=== PATIENT | female | born 1995 | race Caucasian/White ===

== ENCOUNTER 2024-07-12 09:43 | Emergency (ER) | payer OTHER, SELFPAY ==
[2024-07-12 09:49] VITALS: BP 126/78; PULSE 89; RESP 22; TEMP 36.6; O2SAT 99; BMI 25.7
--- NOTE | 2024-07-12 10:08 | ED.GENADULT ---
HPI - General Adult General Date Seen: 07/12/24 Chief complaint: Abdominal Pain Stated complaint: 13wks PG stabbing perineal pain back pain pressure Time Seen by Provider: 07/12/24 10:08 History of Present Illness HPI narrative: This is a very pleasant generally healthy 28-year-old female who is , currently 13 weeks (LMP 04/11/2024). She follows for her care with a clinic in the [facility] in [place] and has already had 1 ultrasound that confirmed a single craven live IUP. She presents to the ER today with intense pelvic cramping and left lower quadrant pain that radiates a little bit to her left flank. It is much worse than any pain she has had before and she says it is worse than labor pains. It came on abruptly. No antecedent symptoms. She is not having any fever or chills. She is nauseous and vomiting due to the pain. Urination has been normal. No dysuria, urgency, frequency, hematuria. She is not having any vaginal bleeding or discharge. No right-sided pain. No rash. No known injury. She did have 1 episode of loose stool this morning after the pain started. She does have a family history of kidney stones. Related Data Previous Rx's ?Medication ?Instructions ?Recorded hydrocodone 5 mg-acetaminophen 325 1 tab PO Q4H PRN pain #14 tabs 07/12/24 mg tablet ondansetron HCl 4 mg tablet 4 mg PO Q8H PRN nausea and 07/12/24 vomiting #10 tabs tamsulosin 0.4 mg capsule (Flomax) 0.4 mg PO DAILY #7 caps 07/12/24 Allergies Allergy/AdvReac Type Severity Reaction Status Date / Time Penicillins Allergy Intermediate Rash Verified 07/12/24 09:49 PFSH PFS Social History Non-prescribed substance use: denies use Exam Narrative: Exam Narrative: Constitutional: Appears well-developed and well-nourished. Alert. G very uncomfortable but polite. Had vomited so help her get a clean emesis bag. HENT: Head: Atraumatic. Nose: Nose normal. Mouth/Throat: Oral mucosa is clear and moist. no trismus. Pharynx normal. Tonsils symmetric. Eyes: Conjunctivae normal. EOM normal. Pupils equal, round, and reactive to light. No scleral icterus. Neck: Normal range of motion. Neck supple. No tracheal deviation present. Cardiovascular: Normal rate, regular rhythm. No gallop. No friction rub. No murmur heard. Symmetric radial artery pulses Pulmonary/Chest: Effort normal. No stridor. No respiratory distress. No wheezes. No rales. No rhonchi . No tenderness. Abdominal: Soft. Bowel sounds normal. No distension. No mass. Left lower quadrant and left CVA> suprapubic tenderness. No rebound. No guarding. Musculoskeletal: RUE: Normal range of motion. No tenderness. No deformity LUE: Normal range of motion. No tenderness. No deformity RLE: Normal range of motion. No edema. No tenderness. No deformity LLE: Normal range of motion. No edema. No tenderness. No deformity Neurological: Alert and oriented to person, place, and time. Normal strength. CN II-VII intact. No sensory deficit. GCS eye subscore is 4. GCS verbal subscore is 5. GCS motor subscore is 6. Normal coordination Skin: Skin is warm and dry. No rash noted. No pallor. Normal capillary refill. Psychiatric: Normal mood. Normal affect. Const: Vital Signs, click to edit/add: Vital Signs - 24 hr 07/12/24 09:49 07/12/24 10:42 07/12/24 10:45 Temperature 97.8 F Pulse Rate 71 82 Pulse Rate [Pulse Oximeter] 89 Respiratory Rate 22 Blood Pressure 121/76 Blood Pressure [Ri ght Upper Arm] 126/78 Pulse Oximetry 99 100 96 Oxygen Delivery Me thod Room Air 07/12/24 10:58 Temperature Pulse Rate Pulse Rate [Pulse Oximeter] Respiratory Rate Blood Pressure Blood Pressure [Ri ght Upper Arm] Pulse Oximetry 96 Oxygen Delivery Me thod Course Vital Signs Vital signs: Initial Vital Signs Temperature 97.8 F 07/12/24 09:49 Temperature Source Temporal Artery Scan 07/12/24 09:49 Pulse Rate 89 07/12/24 09:49 Respiratory Rate 22 07/12/24 09:49 Blood Pressure 126/78 07/12/24 09:49 Blood Pressure Mean 94 07/12/24 09:49 Pulse Oximetry 99 07/12/24 09:49 Oxygen Delivery Method Room Air 07/12/24 09:49 Vital Signs Temperature 97.8 F 07/12/24 09:49 Pulse Rate 89 07/12/24 09:49 Respiratory Rate 22 07/12/24 09:49 Blood Pressure 126/78 07/12/24 09:49 Pulse Oximetry 99 07/12/24 09:49 Oxygen Delivery Method Room Air 07/12/24 09:49 Temperature 97.8 F 07/12/24 09:49 Pulse Rate 82 07/12/24 10:45 Respiratory Rate 22 07/12/24 09:49 Blood Pressure 121/76 07/12/24 10:45 Pulse Oximetry 96 07/12/24 10:58 Oxygen Delivery Method Room Air 07/12/24 09:49 Medications Administered Medications: Discontinued Medications Generic Name Dose Route Start Last Admin Trade Name Freq PRN Reason Stop Dose Admin Acetaminophen 1,000 mg 07/12/24 10:17 07/12/24 10:35 Acetaminophen 500 Mg Tablet PO 07/12/24 10:18 1,000 mg ONCE ONE Administration Hydromorphone HCl 0.5 mg 07/12/24 10:17 07/12/24 10:34 Hydromorphone 0.5 Mg/0.5 Ml Inj IVP 0.5 mg Q1H PRN Administration Pain Ondansetron HCl 4 mg 07/12/24 10:17 07/12/24 10:34 Ondansetron 2 Mg/Ml Inj IVP 07/12/24 10:18 4 mg ONCE ONE Administration Medical Decision Making [facility] Narrative Medical decision making narrative: Very pleasant 28-year-old female who is currently 13 weeks presents to the ER today with abrupt onset of left-sided abdominal pain. Differential is broad. She was very uncomfortable of presentation but is improved after IV Dilaudid. She remained comfortable while here in the ER. First concern is for possible complication. She is not having any bleeding or fluid leakage. She has already had 1 ultrasound that confirmed an IUP and apparently did not show any evidence for ectopic or adnexal abnormality. Repeat pelvic ultrasound is obtained today and confirms a viable IUP appropriate for dates without any signs of subchorionic hemorrhage. Adnexa are normal on the ultrasound. No evidence for ovarian cyst or torsion. She is known to be Rh negative but is not having any signs of active miscarriage so does not need RhoGAM today. Second concern would be for possible kidney stone or pyelonephritis. Renal ultrasound does show left-sided hydronephrosis. Although this can be seen during , I suspect this probably is hydronephrosis from an obstructing distal stone. However, no stone is visualized on the ultrasound today. Urinalysis does show hematuria. This also would suggest kidney stone. No pyuria to suggest pyelonephritis. Laboratory workup shows a white count of 12.3, I suspect this is probably demargination from pain rather than active infection. Discussed in detail with the patient that we would need CT imaging to look for distally for stone and to measure it to so that we can break better its location and probability of passage. However risk of radiation to the fetus would relatively contraindicate that test at this time. Rather than CT imaging, will treat her supportively with pain medications. Patient is agreement and wants to avoid radiation exposure unless absolutely necessary. At this point although he cannot directly image it, we are highly suspicious that she probably has a left ureteral kidney stone associated with severe pain, hematuria, hydronephrosis. At this point pain is well controlled. No signs of kidney failure. No evidence for active infection. With reasonable clinical confidence I think she is safe for outpatient management. Prescriptions for Sparta, Zofran, Flomax. Discussed that she needs to follow up within a week with her primary care provider she is not completely improved and they will help arrange urology consultation if necessary. She says there is a urologist with her primary care provider's clinic. We also discussed that if she has worsening or uncontrolled pain, fever, uncontrolled nausea vomiting, or any concerns she should return to ER right away. Lab Data Labs: Lab Results 07/12/24 07/12/24 Range/Units 10:30 11:30 WBC 12.35 H (4.50-11.00) K/uL RBC 4.21 (4.00-5.20) m/uL Hgb 13.0 (12.0-16.0) gm/dL Hct 36.7 (33.0-51.0) % MCV 87 (80-100) fL MCH 31 (26-34) pg MCHC 35 (32-36) gm/dL RDW Coeff of Rafat 12.0 (11.5-15.5) % Plt Count 298 (140-440) K/uL Neut % (Auto) 82.5 H (42.0-72.0) % Lymph % (Auto) 12.5 L (20-44) % [place] % (Auto) 3.5 (0.0-11.0) % Eos % (Auto) 1.2 (0.0-7.0) % Baso % (Auto) 0.1 (0.0-3.0) % Neut # (Auto) 10.20 H (1.7-7.0) K/uL Lymph # (Auto) 1.50 (0.90-2.90) K/uL [place] # (Auto) 0.40 (0.00-0.90) K/UL Eos # (Auto) 0.10 (0.00-0.50) K/uL Baso # (Auto) 0.00 (0.00-0.30) K/uL Abs Immat Gran (auto) 0.00 (0.00-0.30) K/uL Imm/Tot Granulo (auto) 0.2 % Sodium 133 L (135-149) mmol/L Potassium 3.6 (3.6-5.1) mmol/L Chloride 102 (96-114) mmol/L Carbon Dioxide 22 (20-32) mmol/L Anion Gap 9 (7-15) mEq/L BUN 7 (5-24) mg/dL Creatinine 0.5 (0.5-1.5) mg/dL Estimated Creat Clear 147.23 Estimated GFR 133 ml/min Glucose 98 (60-115) mg/dL Calcium 9.5 (8.4-10.6) mg/dL HCG, Quant 43436.00 mIU/mL Urine Color Yellow (Yellow) Urine Appearance Clear (Clear) Urine pH 6.0 (5.0-8.5) Ur Specific [place] 1.025 (1.000-1.030) Urine Protein 1+ A (Negative) Urine Glucose (UA) Negative (Negative) Urine Ketones 2+ A (Negative) Urine Blood 3+ A (Negative) Urine Nitrite Negative (Negative) Urine Bilirubin Negative (Negative) Urine Urobilinogen 0.2 (0.2-1.0) Ur Leukocyte Esterase Trace A (Negative) Urine RBC 10-25 A (0-2) Urine WBC 0-2 (0-5) Ur Squamous Epith Cells Few (None-Few) Urine Bacteria Few A (None) Urine Mucus Moderate A (None) Imaging Data US Pelvic: Attestation: I have reviewed the pertinent imaging results. My impression: prelim for US tech: healthy IUP. Normal L ovary Radiologist's impression: pole: [place]-rump length measures 7.4 centimeter, compatible with an average ultrasound age of 13 weeks 4 days. Yolk sac: Not visualized. heart rate: 157 beats/min. Right ovary: Size: 4.0 x 3.1 x 2.9 centimeter. Appearance: Normal morphology. 2.9 x 2.6 x 2.3 centimeter corpus luteum. Preserved blood flow. Left ovary: Size: 4.9 x 1.7 x 2.8 centimeter. Appearance: Normal morphology. No masses. Preserved blood flow. Bladder: Visualized bladder is normal. Other: No free fluid. Impression: Single live intrauterine with crown-rump length corresponding to 13 weeks 4 days. US Renal: Attestation: I have reviewed the pertinent imaging results. Radiologist's impression: Findings: Right kidney: Normal in echogenicity and size measuring 10.8 x 4.3 x 6.1 centimeters. No renal mass, cyst, stone, or hydronephrosis. Left kidney: Normal in echogenicity and size measuring 12.4 x 5.6 x 7.3 centimeters. No renal mass, cyst, or stone. Mild hydronephrosis. Bladder: No focal bladder wall mass or lesion. No intraluminal stones or debris. Bilateral ureteral jets were not visualized. Impression: Mild left hydronephrosis; otherwise, the remainder of the examination is unremarkable. Discharge Plan Discharge Clinical Impression: Kidney stone complicating Instructions: Kidney Stones (ED) Additional Instructions: As we discussed, please follow-up with your regular providers on Monday. If you have worsening symptoms such as uncontrolled pain, uncontrolled nausea and vomiting, dehydration, weakness, or any fevers, or if you have any concern for the baby such as vaginal bleeding or fluid leakage, please come back to the ER immediately. To help control the pain from her kidney stone: Start with Tylenol every 6 hours as needed For pain uncontrolled by Tylenol use the prescription pain killer-Sparta. Be careful with Sparta because it causes dizziness, drowsiness, constipation, and can be addictive. Sparta contains the some Tylenol in each tablet. In each 24 hour period, do not exceed 4000 mg of Tylenol. Take the Flomax once daily and this may help the stone move down your ureter more quickly. Prescriptions: New hydrocodone-acetaminophen 5-325 mg tablet 1 tab PO Q4H PRN (Reason: pain) Qty: 14 0RF tamsulosin [Flomax] 0.4 mg capsule 0.4 mg PO DAILY Qty: 7 2RF ondansetron HCl 4 mg tablet 4 mg PO Q8H PRN (Reason: nausea and vomiting) Qty: 10 0RF Follow Up/Referrals: Provider,Not a Local [Primary Care Provider] - Stand Alone Forms: [facility] Info Instructions
--- NOTE | 2024-07-12 10:17 | CRLHL7_ITS ---
For Patients: As a result of the Century Cures Act, medical imaging exams and procedure reports are released immediately into your electronic medical record. You may view this report before your referring provider. If you have questions, please contact your health care provider. Indication: LLQ AND LEFT FLANK PAIN, 13 WEEKS Technique: Renal and bladder ultrasound utilizing grayscale and color Doppler. Comparison: None Findings: Right kidney: Normal in echogenicity and size measuring 10.8 x 4.3 x 6.1 centimeters. No renal mass, cyst, stone, or hydronephrosis. Left kidney: Normal in echogenicity and size measuring 12.4 x 5.6 x 7.3 centimeters. No renal mass, cyst, or stone. Mild hydronephrosis. Bladder: No focal bladder wall mass or lesion. No intraluminal stones or debris. Bilateral ureteral jets were not visualized. Impression: Mild left hydronephrosis; otherwise, the remainder of the examination is unremarkable. Dictated by Primitivo Boyd MD @ 07/12/2024 11:15:07 AM (Electronically Signed)
--- NOTE | 2024-07-12 10:17 | CRLHL7_ITS ---
For Patients: As a result of the Century Cures Act, medical imaging exams and procedure reports are released immediately into your electronic medical record. You may view this report before your referring provider. If you have questions, please contact your health care provider. Indication: LLQ AND PELVIC PAIN LMP: 04/11/2024. Technique: Real-time sonographic images of the pelvis were obtained transabdominally using grayscale, color, and Doppler imaging. Comparison: None. Findings: Uterus: Normal. Gestational sac: No significant abnormality. pole: [place]-rump length measures 7.4 centimeter, compatible with an average ultrasound age of 13 weeks 4 days. Yolk sac: Not visualized. heart rate: 157 beats/min. Right ovary: Size: 4.0 x 3.1 x 2.9 centimeter. Appearance: Normal morphology. 2.9 x 2.6 x 2.3 centimeter corpus luteum. Preserved blood flow. Left ovary: Size: 4.9 x 1.7 x 2.8 centimeter. Appearance: Normal morphology. No masses. Preserved blood flow. Bladder: Visualized bladder is normal. Other: No free fluid. Impression: Single live intrauterine with crown-rump length corresponding to 13 weeks 4 days. Dictated by Dioni Camargo MD @ 07/12/2024 11:15:32 AM (Electronically Signed)
[2024-07-12] MEDS: ONDANSETRON 2 MG/ML inj 4 MG IVP (10:34)
[2024-07-12] MEDS: HYDROmorphone 0.5 mg/0.5 ml inj IVP (10:34)
[2024-07-12 10:35] LABS: Basophils Percent Auto 0.1 % (0.0-3.0); Eosinophils Percent Auto 1.2 % (0.0-7.0); Hematocrit 36.7 % (33.0-51.0); Immature Granulocytes Pct Auto 0.2 %; Lymphocytes Percent Auto 12.5 % (20-44); Mean Corpuscular HGB Conc 35 gm/dL (32-36); Mean Corpuscular Hemoglobin 31 pg (26-34); Mean Corpuscular Volume 87 fL (80-100); Monocytes Percent Auto 3.5 % (0.0-11.0); Neutrophils Percent Auto 82.5 % (42.0-72.0); Platelet Count* 298 K/uL (140-440); Red Blood Count 4.21 m/uL (4.00-5.20); White Blood Count* 12.35 K/uL (4.50-11.00)
[2024-07-12] MEDS: ACETAMINOPHEN 500 MG TABLET 1000 MG PO (10:35)
[2024-07-12 10:39] LABS: Slide Review Reflex No
[2024-07-12 10:42] VITALS: PULSE 71; O2SAT 100
[2024-07-12 10:45] VITALS: BP 121/76; PULSE 82; O2SAT 96
[2024-07-12 10:51] LABS: Chloride* 102 mmol/L (96-114); Potassium* 3.6 mmol/L (3.6-5.1); Sodium* 133 mmol/L (135-149)
[2024-07-12 10:53] LABS: Creatinine* 0.5 mg/dL (0.5-1.5); Est. Creatinine Clearance* 147.23; Estimated Glomerular Filt Rate 133 ml/min
[2024-07-12 10:54] LABS: Anion Gap 9 mEq/L (7-15); Blood Urea Nitrogen* 7 mg/dL (5-24); Calcium* 9.5 mg/dL (8.4-10.6); Carbon Dioxide* 22 mmol/L (20-32); Glucose* 98 mg/dL (60-115)
[2024-07-12 10:58] VITALS: O2SAT 96
--- OUTSIDE RECORDS SUMMARY | 2024-07-12 11:36 | XMS_ITS | Referral Summary ---
Author Organization [facility] Address [address] [place] [id number] Care Team Providers Care Blanket Binder Name Role Phone Deedee Castaneda PA-C Primary Care Provider [phone] Ayleen Naik MD Unavailable [phone] Allergies Active Allergy Reactions Criticality Noted Date Comments Penicillins Hives 04/26/2013 Medications cholecalciferol (VITAMIN D) 1000 UNIT tabletIndicatio ns:Routine general medical examination at a health care facility Take 2 tablets (2,000 Units) by mouth daily 100 tablet 3 6 Active ibuprofen (ADVIL/MOTRIN) 600 MG tabletIndicatio ns:Post-op pain Take 1 tablet (600 mg) by mouth every 6 hours as needed for other (mild and/or inflammatory pain) 30 tablet 3 Active Active Problems Problem Noted Date Diagnosed Date (normal spontaneous vaginal delivery) 01/31 Labor and delivery, indication for care 01/30/20 23 Family history of Jacob thyroiditis 10/04/19 23 Acne vulgaris 02/22/2018 Resolved Problems Problem Noted Date Diagnosed Date Resolved Date Encounter for initial prescr iption of other contraceptives 10/28/2015 02/23/2017 Immunizations Name Administration Dates Next Due DTAP (<7y) 02/27/2003, 9,05/08/1998,03/04/1998, 1997 DTaP/HepB/IPV 02/27/2003,11/10/1998,03/04/1998 ,1997 HPV 02/23/2017,09/26/2014 HPV9 05/08/2018 HepB 09/02/2009,03/04/1998,1997 MMR 02/27/2003,11/10/1998 Meningococcal (Menomune??) 09/02/2009 Meningococcal ACWY (Menactra??) 10/28/2015 TD,PF 7+ (Teniva) 09/02/2009 Varicella 09/26/2014,09/02/2009 Social History Tobacco Use Types Packs/Day Years Used Date Smoking Tobacco: Never Smokeless Tobacco: Never Tobacco Cessation:Counseling Given: Not Answered Alcohol Use Standard Drinks/Week Comments No 0 (1 standard drink = 0.6 oz pur e alcohol) PHQ-2 Answer Date Recorded PHQ-2 Score 0 10/04/2022 [place] Depression Scale Answer Date Recorded Last EPDS Total Score Not on file 01/30/2023 The thought of harming myself has occurred to me . Never 01/30/2023 Adolescent Education Answer Date Record ed Getting School Help Needed Not on file 06/02 Comments No Sex and Gender Information Value Date Recorded Sex Assigned at Not on file Legal Sex Female 1:57 PM CDT Gender Identity Not on file Sexual Orientation Not on file Last Filed Vital Signs Vital Sign Reading Time Taken Comments Blood Pressure 110/69 04/20/2023 11:00 AM CDT Pulse 66 04/20/2023 11:00 AM CDT Temperature 36 ??C (96.8 ??F) 04/20/2023 10:35 AM CDT Respiratory Rate 16 04/20/2023 10:35 AM CDT Oxygen Saturation 100% 04/20/2023 11:00 AM CDT Inhaled Oxygen Concentration - - Weight 64.4 kg (142 lb) 04/20/2023 9:36 AM CDT Height 162.6 cm (5' 4) 04/20/2023 9:36 AM CDT Body Mass Index 24.37 04/20/2023 9:36 AM CDT Plan of Treatment Not on file Procedures Procedure Name Priority Date/Time Associated Diagnosis Comments HIV 1&2 ANTIBODY (EXTERNAL RESULT) Routine 07/18/2022 12:00 PM TRACK LABORER CHLAMYDIA TRACHOMATIS PCR Routine 02/22/2018 1:40 PM CDT Screening examination for venereal disease HEPATITIS C ANTIBODY Routine 10/28/2015 9:20 AM TRACK LABORER Screen for STD (sexually transmitted disease) from Last 3 Months or Most Recently Relevant to Health Maintenance Results * HIV-1 Antibody (External Result) (07/18/2022 12:00 PM TRACK LABORER) Pathologist [facility] HIV 1&2 Antibody (External) Nonreactive Nonreactive [facility] 07/18/2022 12:0 0 PM TRACK LABORER [place] [facility] - HIM EXTERNAL RESU LT Final Result [facility] * CHLAMYDIA TRACHOMATIS PCR (02/22/2018 1:40 PM CDT) [facility] Specimen Description Urine 02/22/2018 1:42 PM CDT [facility] Chlamydia Trachomatis PCR Negative NEG^Negat emmanuel 02/23/2018 12:19 PM CDT [facility] Comment: Negative for C. trachomatis rRNA by safety sitter mediated amplification. A negative result by safety sitter mediated amplification does not preclude the presence of C. trachomatis infection because results are dependent on proper and adequate collection, absence of inhibitors, and sufficient rRNA to be detected. Urine specimen (specimen) 02/22/2018 1:40 PM CDT 02/22/2018 1:41 PM CDT Deedee [facility] LAB - MICRO GENERAL ORDERABLE S Final Result [facility] [address] [place] [address], [facility] [address] [place] [address] * Hepatitis C antibody (10/28/2015 9:20 AM TRACK LABORER) [facility] Hepatitis C Antibody Nonreactive Assay performance characteristics have not been established for newborns, infants, and children NR [facility] Blood specimen (specimen) 10/28/2015 9:20 AM TRACK LABORER 10/28/2015 9:21 AM TRACK LABORER Deedee Castaneda PA-C LAB - BLOOD ORDERABLES Final Result [facility] [address] [place], [place] [id number] [place] [address] from Last 3 Months or Most Recently Relevant to Health Maintenance Insurance [place] [employer] [place] [employer] Advance Directives For more information, please contact: [phone] * Full Code (Latest Code Status on File) Date Activated Date Inactivated Comments 01/29/2023 10:06 AM 01/31/2023 5:37 PM All basic a nd advanced life-sustaining interventions are performed as appropriate Question Answer Comments Code status determined by: Discussion with maira nt/ legal decision maker Care Teams Blanket Binder Relationship Specialty Start Date End Date Deedee Castaneda PA-C PCP - General Family Practice 04/26/13 Ayleen Naik MD [address] [address] Hospitalist Endocrinology, Diabetes, and Metabolism 07/28/22
--- OUTSIDE RECORDS SUMMARY | 2024-07-12 11:36 | XMS_ITS | Clinical Summary ---
Author Organization [facility] Address [address] [place] [id number] Care Team Providers Care Chain Splitter Name Role Phone Deedee Castaneda PA-C Primary Care Provider [phone] Ayleen Naik MD Unavailable [phone] Allergies Active Allergy Reactions Criticality Noted Date [...] 09/02/2009 Meningococcal ACWY (Menactra??) 10/28/2015 TD,PF 7+ (Tenivac) 09/02/2009 Varicella 09/26/2014,09/02/2009 Family History Medical History Relation Comments Hypertension Father Cancer Mother cervical Hypertension Mother Breast Cancer Other Relation Status Comments Father Alive Maternal Grandfather Alive Maternal Grandmother Alive Mother Alive Other Alive Paternal Grandfather Alive Paternal Grandmother Sister Alive Social History Tobacco Use Types Packs/Day Years Used Date Smoking Tobacco: Never Smokeless Tobacco: Never Tobacco Cessation:Counseling Given: Not Answered Alcohol Use Standard Drinks/Week Comments No 0 (1 standard drink = 0.6 oz pur e alcohol) PHQ-2 Answer Date Recorded PHQ-2 Score 0 10/04/2022 [place] Depression Scale Answer Date Recorded Last EPDS [...] 04/20/2023 9:36 AM CDT Plan of Treatment Health Maintenance Due Date Last Done Comments ADVANCE CARE PLANNING 1997 ANNUAL REVIEW OF HM ORDERS 1997 DTAP/TDAP/TD IMMUNIZATION (6 - Tdap) 09/03/2009 09/02/2009, 02/27/2003, 02/27/2003, Additional history exists PAP 2018 YEARLY PREVENTIVE VISIT 11/05/2022 11/05/19, 02/23/2017, 10/28/2015, Additional history exists PHQ-2 (once per calendar year) 2023 10/04/2022, 02/23/2017, 10/28/2015 COVID-19 Vaccine ( season) 2024 INFLUENZA VACCINE (#1) 2024 06/10/2016, 2009 RSV VACCINE (1 - 1-dose 75+ series) 2072 HEPATITIS B IMMUNIZATION Completed 009, 02/27/2003, 11/10/1998, Additional history exists HEPATITIS C SCREENING Completed 10/28/2015 MENINGITIS IMMUNIZATION Completed 10/28/2015, 09/02 CHLAMYDIA SCREENING Discontinued 02/22/2018, 02/23/2017, 10/28/2015 HPV IMMUNIZATION Completed 05/08/2018, , 09/26/2014 HIV SCREENING Completed 07/18/2022, 10/28/2015 Pneumococcal Vaccine: Pediatrics (0 to 5 Years) and At-Risk Patients (6 to 64 Years) Aged Out No longer eligible based on patient's age to complete this topic RSV MONOCLONAL ANTIBODY Aged Out No l onger eligible based on patient's age to complete this topic Procedures Procedure Name Priority Date/Time Associated Diagnosis Comments HIV 1&2 ANTIBODY (EXTERNAL RESULT) Routine 07/18/2022 12:00 PM BACK CLOSER CHLAMYDIA TRACHOMATIS PCR Routine 02/22/2018 1:40 PM CDT Screening examination for venereal disease HEPATITIS C ANTIBODY Routine 10/28/2015 9:20 AM BACK CLOSER Screen for STD (sexually transmitted disease) from Last 3 Months or Most Recently Relevant to Health Maintenance Results * HIV-1 Antibody (External Result) (07/18/2022 12:00 PM BACK CLOSER) HIV 1&2 Antibody (External) Nonreactive Nonreactive [facility] 07/18/2022 12:0 0 PM BACK CLOSER Selma R Anat OLIVIA CNM LAB - HIM EXTERNAL RESU LT Final Result [facility] * CHLAMYDIA TRACHOMATIS PCR (02/22/2018 1:40 PM CDT) Specimen Description Urine 02/22/2018 1:42 PM CDT [facility] Chlamydia Trachomatis PCR Negative NEG^Negat emmanuel 02/23/2018 12:[address] [facility] Comment: Negative for C. trachomatis rRNA by classified advertising clerk mediated amplification. A negative result by classified advertising clerk mediated amplification does not preclude the presence of C. trachomatis infection because results are dependent on proper and adequate collection, absence of inhibitors, and sufficient rRNA to be detected. Urine specimen (specimen) 02/22/2018 1:40 PM CDT 02/22/2018 1:41 PM CDT Deedee Castaneda PA-C LAB - MICRO GENERAL ORDERABLE S Final Result Performing Organization Address City/[facility]/ZIP Co de Phone Number [facility] [address] [place], [place] [id number] [place] [address] [place] [address] * Hepatitis C antibody (10/28/2015 9:20 AM BACK CLOSER) Hepatitis C Antibody Nonreactive Assay performance characteristics have not been established for newborns, infants, and children NR [facility] Blood specimen (specimen) 10/28/2015 9:20 AM BACK CLOSER 10/28/2015 9:21 AM BACK CLOSER Deedee Castaneda PA-C LAB - BLOOD ORDERABLES Final Result [address] [address], [facility] from Last 3 Months or Most Recently Relevant to Health Maintenance Insurance [employer] Advance Directives For more information, please contact: [phone] * Full Code (Latest Code Status on File) Date Activated Date Inactivated Comments 01/29/2023 10:06 AM 01/31/2023 5:37 PM All basic a nd advanced life-sustaining interventions are performed as appropriate Question Answer Comments Code status determined by: Discussion with maira nt/ legal decision maker Care Teams Chain Splitter Relationship Specialty Start Date End Date Deedee Castaneda PA-C PCP - General Family Practice 04/26/13 Ayleen Naik MD [address] [facility] [address] [place] [address] Hospitalist Endocrinology, Diabetes, and Metabolism 07/28/22
--- OUTSIDE RECORDS SUMMARY | 2024-07-12 11:36 | XMS_ITS | Encounter Summary ---
Author Organization [facility] Address [address] [place] [address]. [place] [address] Care Team Providers Care Replenisher Name Role Phone Deedee Castaneda PA-C Primary Care Provider Deedee Castaneda PA-C Unavailable Deedee Castaneda PA-C Unavailable Ayleen Naik MD Unavailable [phone] Ayleen Naik MD Unavailable [phone] Reason for Visit * Reason Onset Date Comments Patient Request 02/27/2017 Encounter Details Date Type Department Care Team (Late st Contact Info) Description 02/27/[address] [address] Deedee Castaneda PA-C [address] [place] [address] Patient Request Social History Tobacco Use Types Packs/Day Years Used Date Smoking Tobacco: Never Smokeless Tobacco: Never Alcohol Use Standard Drinks/Week Comments No 0 (1 standard drink = 0.6 oz pur e alcohol) Comments No Sex and Gender Information Value Date Recorded Sex Assigned at Not on file Legal Sex Female 1:57 PM CDT Gender Identity Not on file Sexual Orientation Not on file documented as of this encounter Plan of Treatment Not on file documented as of this encounter Visit Diagnoses Not on filedocumented in this encounter Care Teams Replenisher Relationship Specialty Start Date End Date Deedee Castaneda PA-C PCP - General Family Practice 04/26/13 Deedee Castaneda PA-C [address] [place] [address] PCP - Assigned PCP 02/26/17 11/13/18 Deedee Castaneda PA-C [address] [place] [address] Assigned PCP 02/26/17 03/06/21 Ayleen Naik MD [address] [id number] Hospitalist Endocrinology, Diabetes, and Metabolism 07/28/22 Ayleen Naik MD [address] [place] [address] [address] [place], [place] [id number] Assigned Endocrinology Provider 10/08/22 05/02/24 documented as of this encounter
[2024-07-12 11:40] LABS: Appearance Urine Clear (Clear); Bilirubin Urine Negative (Negative); Blood Urine 3+ (Negative); Color Urine Yellow (Yellow); Glucose Urine Negative (Negative); Ketones Urine 2+ (Negative); Leukocyte Esterase Urine Trace (Negative); Nitrite Urine Negative (Negative); Protein Urine 1+ (Negative); Specific Gravity Urine 1.025 (1.000-1.030); Urobilinogen Urine 0.2 (0.2-1.0)
[2024-07-12 11:57] LABS: Bacteria Urine Few; Mucus Urine Moderate; Squamous Epithelial Cell Urine Few (None-Few); WBC Urine 0-2 (0-5)
== END 2024-07-12 13:50 | disposition home or self-care (01) ==
PROVIDERS: Emergency Provider Emergency Medicine
DX: N20.0 Calculus of kidney (principal); Z3A.13 13 weeks gestation of pregnancy
CPT/HCPCS: 36415; 76770; 76801; 80048; 81001; 84702; 85025; 87086; 93976; 94761; 96374; 96375; 99283; 99284; A9270; J1171; J2405

== ENCOUNTER 2024-07-14 17:05 | Emergency (ER) | payer OTHER, SELFPAY ==
[2024-07-14 17:10] VITALS: BP 131/87; PULSE 141; RESP 20; TEMP 38.5; O2SAT 97; BMI 25.7
--- NOTE | 2024-07-14 17:17 | ED.GENADULT ---
HPI - General Adult General Time Seen by Provider: 17:18 Date Seen: 07/14/24 Chief complaint: Nausea/Vomiting Stated complaint: vomitting/constipation abdominal pain Time Seen by Provider: 07/14/24 17:17 Source: patient, RN notes reviewed and old records reviewed Mode of arrival: ambulatory Limitations: no limitations History of Present Illness HPI narrative: Dash is a very see 28-year-old female approximately 13 weeks who comes to the emergency room with increasing abdominal pain and fever. Dash was seen on MondayJuly 12 for left-sided back and abdominal pain thought to be related to kidney stones. She states that the pain started on night July 11 and was actually arm both of her flanks but then became more concentrated on the left. She did have some blood in her urine at that time but had no history of kidney stones. In an effort to avoid radiation she did not undergo CT. She was sent home with hydrocodone which she had been taking up until yesterday. She states that sometimes it would help but sometimes it would not help. She notes that she stopped hydrocodone 24 hours ago because of significant constipation and inability to have a bowel movement. She notes that she had some prune juice at home but it did not help. She notes however that barry she has arrived she has passed gas and this did is helping her discomfort. She is having intermittent vomiting because of the pain. She notes that she does not note any blood in her urine but she feels like it is starting to hurt when she urinates. Patient describes abdominal pain ?everywhere at this time?. She has not had any cough cold congestion. No known exposures with significant other at home. Related Data Previous Rx's ?Medication ?Instructions ?Recorded hydrocodone 5 mg-acetaminophen 325 1 tab PO Q4H PRN pain #14 tabs 07/12/24 mg tablet ondansetron HCl 4 mg tablet 4 mg PO Q8H PRN nausea and 07/12/24 vomiting #10 tabs tamsulosin 0.4 mg capsule (Flomax) 0.4 mg PO DAILY #7 caps 07/12/24 Allergies Allergy/AdvReac Type Severity Reaction Status Date / Time Penicillins Allergy Intermediate Rash Verified 07/12/24 09:49 Review of Systems Status of ROS: Reports: 10 or more systems reviewed and unremarkable except as noted in History and below Const: Reports: fever, chills and fatigue Eyes: Denies: change in vision ENMT: Denies: throat pain, neck pain or nasal congestion Cardio: Denies: chest pain, swelling of feet/ankles or shortness of breath with exertion Resp: Denies: shortness of breath or cough GI: Reports: abdominal pain, nausea, vomiting and constipation Musculo: Reports: back pain; Denies: neck pain Endo: Reports: fatigue PFSH PFS Social History Smoking Status: Never smoker How often do you have a drink containing alcohol: monthly or less AUDIT-C Alcohol total score: 1 Non-prescribed substance use: denies use Exam Narrative: Exam Narrative: Dash is alert and oriented. She is nontoxic at this time although her heart rate is elevated and she has a fever of 101.3. She is mentating normally. Ears eyes nose clear. Oral cavity moist mucous membranes. Neck is supple. No lymphadenopathy. Heart with a tachycardic rate but normal rhythm. Lungs are clear bilaterally. Abdomen is soft. Diffuse minimal discomfort. No masses are palpated. No rebound tenderness in the right lower quadrant. Lower extremities without edema. No rashes are noted. Const: Vital Signs, click to edit/add: Vital Signs - 24 hr 07/14/24 17:10 07/14/24 17:58 07/14/24 19:01 Temperature 101.3 F H 101.9 F H Pulse Rate [Pulse Oximeter] 141 H 124 H 125 H Respiratory Rate 20 20 20 Blood Pressure [Ri ght Upper Arm] 131/87 134/92 H 131/86 Pulse Oximetry 97 99 99 Oxygen Delivery Me thod Room Air Room Air Room Air Documenting provider has reviewed patient's vital signs: yes Course Course ED Course: Differential diagnosis includes but is not limited to pyelonephritis, ureteral stone with superimposed UTI, cholecystitis, appendicitis, constipation, COVID. At this time will swab for COVID in the event that she picked up something at the hospital when she was here on Monday but also will need to ascertain if the fever is related to stones. She was told that this is likely kidney stones but never had a CT to confirm this. I did speak about risks benefits of CT today and I do think that the benefits outweigh the risks in spite of the fact that she is 13 weeks . She agrees to go forward with the CT. While CT without contrast is the best study to look for kidney stones, I would will proceed with contrast to ensure no evidence of a cholecystitis or appendicitis. I do not want patient to go through a with and without CT and I certainly do not want to have to repeat it in an effort to minimize radiation. Will initiate 1 L of normal saline, check CBC, comprehensive panel, CRP, blood cultures, urinalysis as well. Reevaluation(s) Reevaluation #1: Patient did urinate without using a strainer as we have found that her kidney stone is at the left UVJ. She continues to be in significant pain so I do not think that she passed the stone. Her last Tylenol was over 6 hours ago. Therefore will give her morphine 4 mg, Tylenol 650 mg. I have asked nursing staff to make sure that she strains urine from this point forward. Awaiting urine results. Contacting [facility] for transfer in specialty consultation. Reevaluation #2: Urine culture from MondayJuly 12 is negative for UTI. Reevaluation #3: [place] [id number] Additional Reevaluation(s): I spoke with hospitalist at [facility] after [facility] said they had an 8 hour delay. Hospitalist states that OB in Urology should be consulted. I then spoke to Urology who states that at 13 weeks of that Interventional Radiology should be consulted as patient will likely need placement of a nephrostomy tube. I asked for OB consult as well. Have now spoken to Ob who states that they would only follow along as this patient would normally be admitted to the hospitalist. Therefore, we are paging the hospitalist once again. Vital Signs Vital signs: Initial Vital Signs Temperature 101.3 F H 07/14/24 17:10 Temperature Source Temporal Artery Scan 07/14/24 17:10 Pulse Rate 141 H 07/14/24 17:10 Pulse Rhythm Regular 07/14/24 17:10 Respiratory Rate 20 07/14/24 17:10 Blood Pressure 131/87 07/14/24 17:10 Blood Pressure Mean 101 07/14/24 17:10 Blood Pressure Position Sitting 07/14/24 17:10 Pulse Oximetry 97 07/14/24 17:10 Oxygen Delivery Method Room Air 07/14/24 17:10 Vital Signs Temperature 101.3 F H 07/14/24 17:10 Pulse Rate 141 H 07/14/24 17:10 Respiratory Rate 20 07/14/24 17:10 Blood Pressure 131/87 07/14/24 17:10 Pulse Oximetry 97 07/14/24 17:10 Oxygen Delivery Method Room Air 07/14/24 17:10 Temperature 101.9 F H 07/14/24 19:01 Pulse Rate 125 H 07/14/24 19:01 Respiratory Rate 20 07/14/24 19:01 Blood Pressure 131/86 07/14/24 19:01 Pulse Oximetry 99 07/14/24 19:01 Oxygen Delivery Method Room Air 07/14/24 19:01 Medications Administered Medications: Discontinued Medications Generic Name Dose Route Start Last Admin Trade Name Freq PRN Reason Stop Dose Admin Acetaminophen 650 mg 07/14/24 19:58 07/14/24 20:04 Acetaminophen 325 Mg Tablet PO 07/14/24 19:59 650 mg ONCE ONE Administration Sodium Chloride 500 mls @ 500 mls/hr 07/14/24 17:29 07/14/24 18:22 0.9 % Sodium Chloride 500 Ml IV 07/14/24 18:28 500 mls/hr .Q1H ONE Administration Ceftriaxone Sodium 1 gm/ 100 mls @ 200 mls/hr 07/14/24 18:00 07/14/24 18:57 Sodium Chloride IVPB 07/14/24 18:01 Infused ONCE ONE Infusion Sodium Chloride 500 mls @ 1,000 mls/hr 07/14/24 18:04 07/14/24 20:11 0.9 % Sodium Chloride 500 Ml IV 07/14/24 18:33 Infused .Q30M KARTIK Infusion Sodium Chloride 1,000 mls @ 1,000 mls/hr 07/14/24 19:58 07/14/24 20:04 0.9 % Sodium Chloride 1000 Ml IV 07/14/24 20:57 1,000 mls/hr .Q1H KARTIK Administration Ondansetron HCl 4 mg 07/14/24 17:31 07/14/24 17:54 Ondansetron 2 Mg/Ml Inj IVP 07/14/24 17:32 4 mg ONCE ONE Administration Medical Decision Making MDM Narrative Medical decision making narrative: 1. Obstructive uropathy/UTI with suspected early sepsis- patient noted to have the onset of a fever today along with [place] [address]. Urinalysis positive at this time even with a negative culture from 48 hours ago. Patient had been diagnosed with kidney stone 48 hours ago based on symptoms. Today CT confirms the presence of a 4 mm stone at the UVJ. Patient is given Rocephin 1 g IV. 1 L of fluid given with 2 L pending. 2. Abdominal pain-patient is given morphine 4 mg IV. Tylenol 650 mg p.o. for the fever. 3. Thirteen week 4. Disposition- [facility] has accepted this patient for transfer under the care of hospitalist Dr. Warren. Patient will be ground BLS transfer. Blood pressure remains stable at this time. Heart rate has improved from 141-125. Addendum: Patient did not receive her morphine or Tylenol. Her temp is now up to 103. Will give her Tylenol. She is declining morphine at this time. Patient will be transferred via ground S ambulance. 2nd L of fluid has been started. CT of the abdomen has been pushed to the [place] system for further viewing. Medical Records Medical records reviewed: Yes I reviewed the patient's medical records Lab Data Lab results reviewed: Yes I reviewed the patient's lab results Labs: Lab Results 07/14/24 07/14/24 07/14/24 Range/Units 17:25 17:50 18:12 WBC 18.49 H (4.50-11.00) K/uL RBC 4.10 (4.00-5.20) m/uL Hgb 12.6 (12.0-16.0) gm/dL Hct 35.5 (33.0-51.0) % MCV 87 (80-100) fL MCH 31 (26-34) pg MCHC 36 (32-36) gm/dL RDW Coeff of Rafat 11.9 (11.5-15.5) % Plt Count 271 (140-440) K/uL Neut % (Auto) 92.5 H (42.0-72.0) % Lymph % (Auto) 3.0 L (20-44) % [place] % (Auto) 4.1 (0.0-11.0) % Eos % (Auto) 0.1 (0.0-7.0) % Baso % (Auto) 0.1 (0.0-3.0) % Neut # (Auto) 17.10 H (1.7-7.0) K/uL Lymph # (Auto) 0.60 L (0.90-2.90) K/uL [place] # (Auto) 0.80 (0.00-0.90) K/UL Eos # (Auto) 0.00 (0.00-0.50) K/uL Baso # (Auto) 0.00 (0.00-0.30) K/uL Abs Immat Gran (auto) 0.00 (0.00-0.30) K/uL Imm/Tot Granulo (auto) 0.2 % Sodium 127 L (135-149) mmol/L Potassium 3.6 (3.6-5.1) mmol/L Chloride 95 L (96-114) mmol/L Carbon Dioxide 20 (20-32) mmol/L Anion Gap 12 (7-15) mEq/L BUN 5 (5-24) mg/dL Creatinine 0.8 (0.5-1.5) mg/dL Estimated Creat Clear 92.02 Estimated GFR 104 ml/min Glucose 107 (60-115) mg/dL Calcium 9.5 (8.4-10.6) mg/dL Total Bilirubin 0.5 (0.1-1.5) mg/dL AST 22 (12-35) U/L ALT 13 (4-35) U/L Alkaline Phosphatase 73 (40-150) U/L C-Reactive Protein 18.3 H (0.5-1.0) mg/dL Total Protein 8.0 (6.0-8.3) g/dL Albumin 4.5 (3.3-5.0) g/dL Urine Color Yellow (Yellow) Urine Appearance Clear (Clear) Urine pH 6.0 (5.0-8.5) Ur Specific [place] 1.020 (1.000-1.030) Urine Protein 1+ A (Negative) Urine Glucose (UA) Negative (Negative) Urine Ketones 4+ A (Negative) Urine Blood 1+ A (Negative) Urine Nitrite Negative (Negative) Urine Bilirubin Negative (Negative) Urine Urobilinogen 0.2 (0.2-1.0) Ur Leukocyte Esterase 1+ A (Negative) Urine RBC 10-25 A (0-2) Urine WBC >100 A (0-5) Ur Squamous Epith Cells Few (None-Few) Urine Bacteria Many A (None) SARS-CoV-2 (PCR) Negative SARS-CoV-2 (Negative) Influenza Type A (PCR) Negative PCR FLU A (Negative) Influenza Type B (PCR) Negative PCR FLU B (Negative) RSV (PCR) Negative PCR RSV (Negative) Imaging Data CT scan - abdomen: Attestation: I have reviewed the pertinent imaging results. My impression: Stone noted in the distal ureter. On the left. Radiologist's impression: FINDINGS: Lower chest: Unremarkable. Liver: Unremarkable. Normal in size and attenuation. No suspicious masses. Gallbladder and bile ducts: Unremarkable. No stones or inflammation. No biliary dilatation. Pancreas: Unremarkable. No mass or inflammation. Spleen: Unremarkable. Normal in size. No masses. Adrenal glands: Unremarkable. No nodules. Kidneys: Mild left-sided hydroureteronephrosis secondary to 4 millimeter obstructing distal left UVJ stone. Associated left renal delayed nephrogram. Additional tiny nonobstructing left renal stone. GI tract: Unremarkable. Normal in caliber. No sign of mass or inflammation. Normal appendix. Vasculature: Abdominal aorta is normal in caliber. Mesenteric arteries are patent. Lymph nodes: No lymphadenopathy. Peritoneum/Abdominal Wall: Unremarkable. No sign of mass or infiltration. No free air or significant free fluid. Pelvis: Incidental intrauterine . Incidental tiny right corpus luteal cyst. Bones: Unremarkable for age. IMPRESSION: Mild left-sided hydroureteronephrosis secondary to 4 millimeter obstructing distal left UVJ stone. Associated left renal delayed nephrogram secondary to obstructive uropathy. Recommend correlation with urinalysis to exclude superimposed urinary tract infection. No drainable renal or perinephric fluid collections. Otherwise, no acute intra-abdominal/pelvic abnormality including appendicitis. Critical Care Time Critical Care Time Critical Care Time: Yes Attestation: The patient required my highest level preparedness to intervene emergently and I personally spent this critical care time directly and personally managing the patient. This critical care time included: Obtaining a history; Examining the patient; Pulse oximetry; Ordering and reviewing of studies; Arranging urgent treatment with development of a management plan; Evaluation of patients response to treatment; Frequent reassessment discussions with other providers. This critical care time was performed to assess and manage the high probability of imminent life-threatening deterioration that could result in multiorgan failure. It was exclusive of separate billable procedures and treating other patients and teaching time. Total Critical Care Time in Minutes: 60 Discharge Plan Discharge Clinical Impression: Kidney stone complicating , Acute unilateral obstructive uropathy, Sepsis Patient Disposition: [facility] Hospital Discharge Location: [facility]
--- NOTE | 2024-07-14 17:29 | CRLHL7_ITS ---
For Patients: As a result of the Century Cures Act, medical imaging exams and procedure reports are released immediately into your electronic medical record. You may view this report before your referring provider. If you have questions, please contact your health care provider. INDICATION: Abdominal pain with fever. TECHNIQUE: CT abdomen and pelvis acquired with 74 cc Isovue 370 IV contrast. COMPARISON: None. FINDINGS: Lower chest: Unremarkable. Liver: Unremarkable. Normal in size and attenuation. No suspicious masses. Gallbladder and bile ducts: Unremarkable. No stones or inflammation. No biliary dilatation. Pancreas: Unremarkable. No mass or inflammation. Spleen: Unremarkable. Normal in size. No masses. Adrenal glands: Unremarkable. No nodules. Kidneys: Mild left-sided hydroureteronephrosis secondary to 4 millimeter obstructing distal left UVJ stone. Associated left renal delayed nephrogram. Additional tiny nonobstructing left renal stone. GI tract: Unremarkable. Normal in caliber. No sign of mass or inflammation. Normal appendix. Vasculature: Abdominal aorta is normal in caliber. Mesenteric arteries are patent. Lymph nodes: No lymphadenopathy. Peritoneum/Abdominal Wall: Unremarkable. No sign of mass or infiltration. No free air or significant free fluid. Pelvis: Incidental intrauterine . Incidental tiny right corpus luteal cyst. Bones: Unremarkable for age. IMPRESSION: Mild left-sided hydroureteronephrosis secondary to 4 millimeter obstructing distal left UVJ stone. Associated left renal delayed nephrogram secondary to obstructive uropathy. Recommend correlation with urinalysis to exclude superimposed urinary tract infection. No drainable renal or perinephric fluid collections. Otherwise, no acute intra-abdominal/pelvic abnormality including appendicitis. Please note that all CT scans at this facility use dose modulation, iterative reconstruction, and/or weight-based dosing when appropriate to reduce radiation dose to as low as reasonably achievable. Dictated by Adi Austin MD @ 07/14/2024 5:56:08 PM (Electronically Signed)
--- OUTSIDE RECORDS SUMMARY | 2024-07-14 17:41 | XMS_ITS | Clinical Summary ---
Author Organization [facility] Address [address] [place] [address] Care Team Providers Care Interior Design Faculty Member Name Role Phone Deedee Castaneda PA-C Primary Care Provider Ayleen Naik MD Unavailable [phone] Allergies Active Allergy Reactions Criticality Noted Date [...] Answer Date Recorded PHQ-2 Score 0 10/04/2022 [place] Depression Scale Answer Date Recorded Last EPDS [...] ANTIBODY (EXTERNAL RESULT) Routine 07/18/2022 12:00 PM LIVESTOCK HAULIER CHLAMYDIA TRACHOMATIS PCR Routine 02/22/2018 1:40 PM CDT Screening examination for venereal disease HEPATITIS C ANTIBODY Routine 10/28/2015 9:20 AM [facility]STOCK [facility]IER Screen for STD (sexually transmitted disease) from Last 3 Months or Most Recently Relevant to Health Maintenance Results * HIV-1 Antibody (External Result) (07/18/2022 12:00 PM LIVESTOCK HAULIER) HIV 1&2 Antibody (External) Nonreactive Nonreactive [facility] 07/18/2022 12:0 0 PM L[facility]STOCK [facility]IER [place] R Anat OLIVIA CNM LAB - HIM EXTERNAL RESU LT Final Result [facility] * CHLAMYDIA TRACHOMATIS PCR (02/22/2018 1:40 PM CDT) Specimen Description Urine 02/22/2018 1:42 PM CDT [facility] Chlamydia Trachomatis PCR Negative NEG^Negat emmanuel 02/23/2018 12:19 PM CDT [facility] Comment: Negative for C. trachomatis rRNA by die stamper mediated amplification. A negative result by die stamper mediated amplification does not preclude the presence of C. trachomatis infection because results are dependent on proper and adequate collection, absence of inhibitors, and sufficient rRNA to be detected. Urine specimen (specimen) 02/22/2018 1:40 PM CDT 02/22/2018 1:41 PM CDT Deedee Castaneda PA-C LAB - MICRO GENERAL ORDERABLE S Final Result Performing Organization Address City/[facility]/ZIP Co de Phone Number [facility] [address] [place], [place] [id number] [place] [address] [place] [address] * Hepatitis C antibody (10/28/2015 9:20 AM [facility]) Hepatitis C Antibody Nonreactive Assay performance characteristics have not been established for newborns, infants, and children NR [facility] Blood specimen (specimen) 10/28/2015 9:20 AM [facility] 10/28/2015 9:21 AM [facility] Deedee Csataneda PA-C LAB - BLOOD ORDERABLES Final Result [address] [address], [facility] from Last 3 Months or Most Recently Relevant to Health Maintenance Insurance [employer] COMMERCIAL Advance Directives For more information, please contact: [phone] * Full Code (Latest Code Status on File) Date Activated Date Inactivated Comments 01/29/2023 10:06 AM 01/31/2023 5:37 PM All basic a nd advanced life-sustaining interventions are performed as appropriate Question Answer Comments Code status determined by: Discussion with maira nt/ legal decision maker Care Teams Interior Design Faculty Member Relationship Specialty Start Date End Date Deedee Castaneda PA-C PCP - General Family Practice 04/26/13 Ayleen Naik MD [address] [facility] [address] [place] [address] Hospitalist Endocrinology, Diabetes, and Metabolism 07/28/22
--- OUTSIDE RECORDS SUMMARY | 2024-07-14 17:41 | XMS_ITS | Encounter Summary ---
Author Organization [facility] Address [address] [place] [address]. [place] [address] Care Team Providers Care Motorcycle Builder Name Role Phone Deedee Castaneda PA-C Primary Care Provider Deedee Castaneda PA-C Unavailable [phone] Deedee Castaneda PA-C Unavailable Ayleen Naik MD Unavailable [phone] Ayleen Naik MD Unavailable Reason for Visit * Reason Onset Date Comments Patient Request 02/27/2017 Encounter Details Date Type Department Care Team (Late st Contact Info) Description 02/27/[address] [address] Deedee Castaneda PA-C [address] [place] [address] Patient Request Social History Tobacco [...] on filedocumented in this encounter Care Teams Motorcycle Builder Relationship Specialty Start Date End Date Deedee Castaneda PA-C PCP - General Family Practice 04/26/13 Deedee Castaneda PA-C [address] [place] [address] PCP - Assigned PCP 02/26/17 11/13/18 Deedee Castaneda PA-C [address] [place] [address] Assigned PCP 02/26/17 03/06/21 Ayleen Naik MD [address] [address] Hospitalist Endocrinology, Diabetes, and Metabolism 07/28/22 Ayleen Naik MD [address] [place] [address] [address] [place], [place] [address] Assigned Endocrinology Provider 10/08/22 05/02/24 documented as of this encounter
--- OUTSIDE RECORDS SUMMARY | 2024-07-14 17:41 | XMS_ITS | Referral Summary ---
Author Organization [facility] Address [address] [place] [address] Care Team Providers Care Assistant Operations Manager Name Role Phone Deedee Castaneda PA-C Primary Care Provider [phone] Ayleen Naik MD Unavailable [phone] Allergies Active Allergy Reactions Criticality Noted Date [...] Answer Date Recorded PHQ-2 Score 0 10/04/2022 [place] Depression Scale Answer Date Recorded Last EPDS [...] ANTIBODY (EXTERNAL RESULT) Routine 07/18/2022 12:00 PM SALES ORDER PROCESSOR CHLAMYDIA TRACHOMATIS PCR Routine 02/22/2018 1:40 PM CDT Screening examination for venereal disease HEPATITIS C ANTIBODY Routine 10/28/2015 9:20 AM SALES ORDER PROCESSOR Screen for STD (sexually transmitted disease) from Last 3 Months or Most Recently Relevant to Health Maintenance Results * HIV-1 Antibody (External Result) (07/18/2022 12:00 PM SALES ORDER PROCESSOR) Pathologist [facility] HIV 1&2 Antibody (External) Nonreactive Nonreactive [facility] 07/18/2022 12:0 0 PM SALES ORDER PROCESSOR [place] [facility] LAB - HIM EXTERNAL RESU LT Final Result [facility] * CHLAMYDIA TRACHOMATIS PCR (02/22/2018 1:40 PM CDT) [facility] Specimen Description Urine 02/22/2018 1:42 PM CDT [facility] Chlamydia Trachomatis PCR Negative NEG^Negat emmanuel 02/23/2018 12:19 PM CDT [facility] Comment: Negative for C. trachomatis rRNA by loom setter fourdrinier mediated amplification. A negative result by loom setter fourdrinier mediated amplification does not preclude the presence of C. trachomatis infection because results are dependent on proper and adequate collection, absence of inhibitors, and sufficient rRNA to be detected. Urine specimen (specimen) 02/22/2018 1:40 PM CDT 02/22/2018 1:41 PM CDT Deedee CORTESC LAB - MICRO GENERAL ORDERABLE S Final Result [facility] [address] [place] [address], [facility] [address] [place] [address] * Hepatitis C antibody (10/28/2015 9:20 AM SALES ORDER PROCESSOR) [facility] Hepatitis C Antibody Nonreactive Assay performance characteristics have not been established for newborns, infants, and children NR [facility] Blood specimen (specimen) 10/28/2015 9:20 AM SALES ORDER PROCESSOR 10/28/2015 9:21 AM SALES ORDER PROCESSOR Deedee Castaneda PA-C LAB - BLOOD ORDERABLES Final Result [facility] [address] [place], [place] [id number] [place] [address] from Last 3 Months or Most Recently Relevant to Health Maintenance Insurance [employer] Advance Directives For more information, please contact: [phone] * Full Code (Latest Code Status on File) Date Activated Date Inactivated Comments 01/29/2023 10:06 AM 01/31/2023 5:37 PM All basic a nd advanced life-sustaining interventions are performed as appropriate Question Answer Comments Code status determined by: Discussion with maira nt/ legal decision maker Care Teams Assistant Operations Manager Relationship Specialty Start Date End Date Deedee Castaneda PA-C PCP - General Family Practice 04/26/13 Ayleen Naik MD [address] [address] Hospitalist Endocrinology, Diabetes, and Metabolism 07/28/22
[2024-07-14 17:44] LABS: Albumin* 4.5 g/dL (3.3-5.0)
[2024-07-14 17:45] LABS: Chloride* 95 mmol/L (96-114); Potassium* 3.6 mmol/L (3.6-5.1); Sodium* 127 mmol/L (135-149)
[2024-07-14 17:47] LABS: Bilirubin Total* 0.5 mg/dL (0.1-1.5); Creatinine* 0.8 mg/dL (0.5-1.5); Est. Creatinine Clearance* 92.02; Estimated Glomerular Filt Rate 104 ml/min
[2024-07-14 17:48] LABS: Alanine Aminotransferase* 13 U/L (4-35); Alkaline Phosphatase* 73 U/L (40-150); Anion Gap 12 mEq/L (7-15); Aspartate Amino Transferase* 22 U/L (12-35); Blood Urea Nitrogen* 5 mg/dL (5-24); Calcium* 9.5 mg/dL (8.4-10.6); Carbon Dioxide* 20 mmol/L (20-32); Glucose* 107 mg/dL (60-115)
[2024-07-14] MEDS: ONDANSETRON 2 MG/ML inj 4 MG IVP (17:54)
[2024-07-14 17:58] VITALS: BP 134/92; PULSE 124; RESP 20; O2SAT 99
[2024-07-14 17:58] LABS: Appearance Urine Clear (Clear); Bilirubin Urine Negative (Negative); Blood Urine 1+ (Negative); Color Urine Yellow (Yellow); Glucose Urine Negative (Negative); Ketones Urine 4+ (Negative); Leukocyte Esterase Urine 1+ (Negative); Nitrite Urine Negative (Negative); Protein Urine 1+ (Negative); Urobilinogen Urine 0.2 (0.2-1.0)
[2024-07-14 18:08] LABS: Basophils Percent Auto 0.1 % (0.0-3.0); Eosinophils Percent Auto 0.1 % (0.0-7.0); Hematocrit 35.5 % (33.0-51.0); Hemoglobin* 12.6 gm/dL (12.0-16.0); Immature Granulocytes Pct Auto 0.2 %; Mean Corpuscular HGB Conc 36 gm/dL (32-36); Mean Corpuscular Hemoglobin 31 pg (26-34); Mean Corpuscular Volume 87 fL (80-100); Monocytes Percent Auto 4.1 % (0.0-11.0); Neutrophils Percent Auto 92.5 % (42.0-72.0); Platelet Count* 271 K/uL (140-440); RDW Coefficient of Variation % 11.9 % (11.5-15.5); White Blood Count* 18.49 K/uL (4.50-11.00)
[2024-07-14 18:11] LABS: Slide Review Reflex No
[2024-07-14] MEDS: cefTRIAXone 1 GM in 0.9 % SODIUM CHLORIDE Mini-bag 100 ML IVPB (18:14)
[2024-07-14] MEDS: 0.9 % SODIUM CHLORIDE 500 ML 500 ML 1000 ML IV (18:22)
[2024-07-14] MEDS: 0.9 % SODIUM CHLORIDE 500 ML 500 ML IV (18:22)
[2024-07-14 18:33] LABS: C Reactive Protein* 18.3 mg/dL (0.5-1.0)
[2024-07-14 18:38] LABS: Bacteria Urine Many; Squamous Epithelial Cell Urine Few (None-Few); WBC Urine >100 (0-5)
[2024-07-14 19:01] VITALS: BP 131/86; PULSE 125; RESP 20; TEMP 38.8; O2SAT 99
[2024-07-14 19:02] LABS: PCR FLU A Negative PCR FLU A (Negative); PCR FLU B Negative PCR FLU B (Negative); PCR RSV Negative PCR RSV (Negative); SARS PCR* Negative SARS-CoV-2 (Negative)
[2024-07-14] MEDS: 0.9 % SODIUM CHLORIDE 1000 ml 1,000 ML IV (20:04)
[2024-07-14] MEDS: ACETAMINOPHEN 325 MG TABLET 650 MG PO (20:04)
--- NOTE | 2024-07-14 20:07 | ED.NURSE ---
Gave report to [facility]. Pt is going to room 2224. IV fluids running. IV patent. Continues to be tachycardiac in 120s (unchanged)
--- NOTE | 2024-07-14 20:37 | ED.NURSE ---
Gave report to YAZAN Tierney, no questions RN to RN report. IV infusing
== END 2024-07-14 20:30 | disposition short-term general hospital (02) ==
PROVIDERS: Emergency Provider Family Medicine
DX: N20.0 Calculus of kidney (principal); Z3A.13 13 weeks gestation of pregnancy
CPT/HCPCS: 36415; 74177; 80053; 81001; 85025; 86140; 87040; 87086; 87186; 87631; 96365; 96375; 99284; 99285; 99291; A9270; J0696; J2405; J7030; Q9967

== ENCOUNTER 2024-07-14 20:26 | Outpatient (CLI) | payer OTHER, SELFPAY ==
--- OUTSIDE RECORDS SUMMARY | 2024-07-20 19:08 | XMS_ITS | Clinical Summary ---
Author Organization [facility] Address [address] [place] [id number] Care Team Providers [facility] [place] Name Role Phone Deedee Castaneda PA-C Primary Care Provider [phone] Ayleen Naik MD Unavailable [phone] Allergies Active Allergy Reactions Criticality Noted Date Comments Penicillins Hives 04/26/2013 Medications ondansetron (ZOFRAN) 4 MG tablet Take 4 mg by mouth every 8 hours as needed for nausea or vomiting. 07/12/20 24 Active Vit-Fe Fumarate-FA ( PLUS) 27-1 MG TABS Take 1 tablet by mouth daily. Active HYDROcodone-ac etaminophen (NORCO) 5-325 MG tablet Take 1 tablet by mouth every 4 hours as needed for pain. 07/12/20 24 Active acetaminophen (TYLENOL) 500 MG tablet Take 500-1,000 mg by mouth every 6 hours as needed for mild pain. Active tamsulosin (FLOMAX) 0.4 MG capsuleIndicat ions:Sepsis without acute organ dysfunction, due to unspecified organism (H) Take 1 capsule (0.4 mg) by mouth daily. 30 capsule 07/18/20 24 Active acetaminophen (TYLENOL) 325 MG tabletIndicati ons:Sepsis without acute organ dysfunction, due to unspecified organism (H) Take 2 tablets (650 mg) by mouth every 4 hours as needed for mild pain or other (and adjunct with moderate or severe pain or per patient request). 07/18/20 Active amoxicillin (AMOXIL) 500 MG capsuleIndicat ions:Urinary Tract Infection Take 2 capsules (1,000 mg) by mouth every 8 hours for 10 days. 60 capsule 07/18/20 24 2023 Active cholecalcifero l (VITAMIN D) 1000 UNIT tabletIndicati ons:Routine general medical examination at a health care facility Take 2 tablets (2,000 Units) by mouth daily 100 tablet 3 10/28/19 16 2023 Discontinued( ed Rec(No AVS / No eCancel)) ibuprofen (ADVIL/MOTRIN) 600 MG tabletIndicati ons:Post-op pain Take 1 tablet (600 mg) by mouth every 6 hours as needed for other (mild and/or inflammatory pain) 30 tablet 04/20/20 23 2023 Discontinued( ed Rec(No AVS / No eCancel)) tamsulosin (FLOMAX) 0.4 MG capsule Take 0.4 mg by mouth daily. 07/12/20 24 2023 Discontinued Active Problems Problem Noted Date Diagnosed Date Sepsis 07/14/2024 (normal spontaneous vaginal delivery) 01/31 Labor and delivery, indication for care 01/30/20 23 Family history of Jacob thyroiditis 10/04/19 23 Acne vulgaris 02/22/2018 Resolved Problems Problem Noted Date Diagnosed Date Resolved Date Encounter for initial prescr iption of other contraceptives 10/28/2015 02/23/2017 Encounters Date Type Department Care Team Description 07/14/2024 9:20 PM ICING MIXER - 07/18/2024 4:19 PM ICING MIXER Hospital Encounter [facility] General Surgery [address] [place] [address] Pool Chan MD Jungman, MD Carlos Pugh, MD Karey Sepsis without acute organ dysfunction, due to unspecified organism (H) (Primary Dx) Discharge Disposition: Home or Self Care from Last 3 Months Immunizations Name Administration Dates Next Due DTAP [...] Answer Date Recorded PHQ-2 Score 0 10/04/2022 Lawrence Depression Scale Answer Date Recorded Last EPDS Total Score Not on file 01/30/2023 The thought of harming myself has occurred to me . Never 01/30/2023 Adolescent Education Answer Date Record ed Getting School Help Needed Not on file 06/02 Food Insecurity Answer Date Recorded Within the past 12 months, d id you worry that your food would run out before you got money to buy more? No 07/15/2024 Within the past 12 months, d id the food you bought just not last and you didn? t have money to get more? No 07/15/2024 Housing Stability Answer Date Recorded Do you have housing? (Housin g is defined as stable permanent housing and does not include staying ouside in a car, in a tent, in an abandoned building, in an overnight nursing home, or couch-surfing.) Yes 07/15/2024 Are you worried about losing your housing? No 07/15/2024 Financial Resource Strain Answer Date R ecorded Within the past 12 months, h ave you or your family members you live with been unable to get utilities (heat, electricity) when it was really needed? No 07/15/2024 Transportation Needs Answer Date Record ed Within the past 12 months, h as lack of transportation kept you from medical appointments, getting your medicines, non-medical meetings or appointments, work, or from getting things that you need? No 07/15/2024 Interpersonal Safety Answer Date Record ed Do you feel physically and e motionally safe where you currently live? Yes 07/15/2024 Within the past 12 months, h ave you been hit, slapped, kicked or otherwise physically hurt by someone? No 07/15/2024 Within the past 12 months, h ave you been humiliated or emotionally abused in other ways by your partner or ex-partner? No 07/15/2024 Comments Unknown Sex and Gender Information Value Date Recorded Sex Assigned at Not on file Legal Sex Female 1:57 PM CDT Gender Identity Not on file Sexual Orientation Not on file Last Filed Vital Signs Vital Sign Reading Time Taken Comments Blood Pressure 110/74 07/18/2024 11:52 AM ICING MIXER Pulse 88 07/18/2024 11:52 AM ICING MIXER Temperature 36.7 ??C (98 ??F) 07/18/2024 11:52 AM ICING MIXER Respiratory Rate 16 07/18/2024 11:52 AM ICING MIXER Oxygen Saturation 99% 07/18/2024 11:52 AM ICING MIXER Inhaled Oxygen Concentration - - Weight 64.4 kg (142 lb) 04/20/2023 9:36 AM CDT Height 162.6 cm (5' 4) 04/20/2023 9:36 AM CDT Body Mass Index 24.37 04/20/2023 9:36 AM CDT Plan of Treatment Health Maintenance Due Date Last Done Comments ADVANCE CARE PLANNING 1997 ANNUAL REVIEW OF HM ORDERS 1997 PAP 2018 YEARLY PREVENTIVE VISIT 11/05/2022 11/05/19, 02/23/2017, 10/28/2015, Additional history exists PHQ-2 (once per calendar year) 2023 10/04/2022, 02/23/2017, 10/28/2015 COVID-19 Vaccine ( - season) 2024 INFLUENZA VACCINE (#1) 2024 DTAP/TDAP/TD IMMUNIZATION (7 - Td or Tdap) 12/15/2032 12/15/2022, 09/02/2009, 02/27/2003, Additional history exists RSV VACCINE (1 - 1-dose 75+ series) [...] Procedure Name Priority Date/Time Associated Diagnosis Comments HEMOGLOBIN Routine 07/18/2024 11:12 AM ICING MIXER WBC COUNT Routine 07/18/2024 11:12 AM ICING MIXER CBC WITH PLATELETS Routine 07/17/2024 7: 41 AM ICING MIXER FOLATE Routine 07/16/2024 8:01 AM ICING MIXER CBC WITH PLATELETS Routine 07/16/2024 8: 01 AM ICING MIXER BASIC METABOLIC PANEL Routine 07/16/2024 8:01 AM ICING MIXER BLOOD CULTURE STAT 07/15/2024 4:05 PM ICING MIXER FERRITIN Add-On 07/15/2024 2:13 PM ICING MIXER IRON AND IRON BINDING CAPACITY Add-On 07/15/2024 2:13 PM ICING MIXER VITAMIN B12 Add-On 07/15/2024 2:13 PM ICING MIXER LACTIC ACID WHOLE BLOOD Timed 07/15/2024 2:13 PM ICING MIXER US OB < 14 WEEKS SINGLE-TRANSABDOMINAL Routine 07/15/2024 1:28 PM ICING MIXER LACTIC ACID WHOLE BLOOD Timed 07/15/2024 10:40 AM ICING MIXER PROCALCITONIN Add-On 07/15/2024 7:56 AM ICING MIXER HEPATIC FUNCTION PANEL Add-On 7:56 AM ICING MIXER BASIC METABOLIC PANEL Routine 07/15/2024 7:56 AM ICING MIXER CBC WITH PLATELETS & DIFFERENTIAL Routine 07/15/2024 6:00 AM ICING MIXER RBC AND PLATELET MORPHOLOGY Routine 07/15/2024 6:00 AM ICING MIXER CBC WITH PLATELETS AND DIFFERENTIAL Routine 07/15/2024 6:00 AM ICING MIXER LACTIC ACID WHOLE BLOOD STAT 07/15/2024 6:00 AM ICING MIXER URINE CULTURE Routine 07/15/2024 12:39 AM ICING MIXER IMAGING PROCEDURE NOTE Routine 12:14 AM ICING MIXER IR NEPHROSTOMY TUBE PLACEMENT LEFT STAT 07/15/2024 12:09 AM ICING MIXER HIV 1&2 ANTIBODY (EXTERNAL RESULT) Routine 07/18/2022 12:00 PM ICING MIXER CHLAMYDIA TRACHOMATIS PCR Routine 02/22/2018 1:40 PM CDT Screening examination for venereal disease HEPATITIS C ANTIBODY Routine 10/28/2015 9:20 AM ICING MIXER Screen for STD (sexually transmitted disease) from Last 3 Months or Most Recently Relevant to Health Maintenance Results * WBC count (07/18/2024 11:12 AM ICING MIXER) WBC Count 8.7 4.0 - 11.0 10e3/uL 07/18/2024 11:53 AM ICING MIXER LABORATORY Blood STRUCTURE OF LEFT HAND / Unknown Venipuncture / Unknown 07/18/2024 11:12 AM ICING MIXER 07/18/2024 11:48 AM ICING MIXER Karey Gonzalez MD LAB - BLOOD ORDERABLES Final Res ult LABORATORY [facility] [address], [address] [place] [address], [facility] [phone] * (ABNORMAL) Hemoglobin (07/18/2024 11:12 AM ICING MIXER) Pathologist [facility] Hemoglobin 10.6(L) 11.7 - 15.7 g/dL 07/18/2024 11:53 AM ICING MIXER LABORATORY Blood STRUCTURE OF LEFT HAND / Unknown Venipuncture / Unknown 07/18/2024 11:12 AM ICING MIXER 07/18/2024 11:48 AM ICING MIXER Karey Gonzalez MD LAB - BLOOD ORDERABLES Final Res ult [facility] [address], [address], [place] [address], [facility] [phone] * (ABNORMAL) CBC with platelets (07/17/2024 7:41 AM ICING MIXER) Only the most recent of2 resultswithin the time period is included. WBC Count 12.0(H) 4.0 - 11.0 10e3/uL 07/17/2024 8:03 AM [facility]ING MIXER LABORATORY RBC Count 3.19(L) 3.80 - 5.20 10e6/uL 07/17/2024 8:03 AM ICING MIXER LABORATORY Hemoglobin 9.8(L) 11.7 - 15.7 g/dL 07/17/2024 8:03 AM [facility]ING MIXER LABORATORY Hematocrit 27.5(L) 35.0 - 47.0 % 07/17/2024 8:03 AM [facility] MCV 86 78 - 100 fL 07/17/2024 8:03 AM [facility] MCH 30.7 26.5 - 33.0 pg 07/17/2024 8:03 AM [facility] MCHC 35.6 31.5 - 36.5 g/dL 07/17/2024 8:03 AM [facility] RDW 12.2 10.0 - 15.0 % 07/17/2024 8:03 AM [facility] Platelet Count 249 150 - 450 10e3/uL 07/17/2024 8:03 AM [facility] Blood STRUCTURE OF LEFT HAND / Unknown Venipuncture / Unknown 07/17/2024 7:41 AM ICING MIXER 07/17/2024 7:57 AM ICING MIXER Karey Gonzalez MD LAB - BLOOD ORDERABLES Final Res ult LABORATORY [facility] [address], [address] [place] [address], [facility] [phone] * Folate (07/16/2024 8:01 AM ICING MIXER) Folic Acid 17.4 4.6 - 34.8 ng/mL 07/16/2024 12:08 PM ICING MIXER U LABORATORY Blood STRUCTURE OF LEFT HAND / Unknown Venipuncture / Unknown 07/16/2024 8:01 AM ICING MIXER 07/16/2024 8:11 AM ICING MIXER Karey Gonzalez MD LAB - BLOOD ORDERABLES Final Res ult U LABORATORY [facility] [place] [facility] [address] [facility], [address] [place] [address], [facility] * (ABNORMAL) Basic metabolic panel (07/16/2024 8:01 AM ICING MIXER) Only the most recent of2 resultswithin the time period is included. Sodium 137 135 - 145 mmol/L 07/16/2024 8:41 AM ICING MIXER SH LABORATORY Potassium 3.5 3.4 - 5.3 mmol/L 07/16/2024 8:41 AM [facility] Chloride 105 98 - 107 mmol/L 07/16/2024 8:41 AM [facility] Carbon Dioxide (CO2) 18(L) 22 - 29 mmol/L 07/16/2024 8:41 AM [facility] Anion Gap 14 7 - 15 mmol/L 07/16/2024 8:41 AM [facility] Urea Nitrogen 4.6(L) 6.0 - 20.0 mg/dL 07/16/2024 8:41 AM [facility] Creatinine 0.45(L) 0.51 - 0.95 mg/dL 07/16/2024 8:41 AM [facility] GFR Estimate >90 >60 mL/min/1.7 3m2 07/16/2024 8:41 AM [facility] Comment:eGFR calculated usin 2020 CKD-EPI equation. Calcium 8.5(L) 8.8 - 10.4 mg/dL 07/16/2024 8:41 AM [facility] Comment:Reference intervals for this test were updated on 03/26/2024 to reflect our healthy population more accurately. There may be differences in the flagging of prior results with similar values performed with this method. Those prior results can be interpreted in the context of the updated reference intervals. Glucose 86 70 - 99 mg/dL 07/16/2024 8:41 AM [facility] Blood STRUCTURE OF LEFT HAND / Unknown Venipuncture / Unknown 07/16/2024 8:01 AM ICING MIXER 07/16/2024 8:10 AM [facility] us Karey Gonzalez MD LAB - BLOOD ORDERABLES Final Res ult LABORATORY [facility] [address], [address] [place] [address], [place] [phone] * Blood Culture Hand, Left (07/15/2024 4:05 PM ICING MIXER) Culture No Growth 07/20/2024 7:01 PM ICING MIXER [facility] Blood STRUCTURE OF LEFT HAND / Unknown Venipuncture / Unknown 07/15/2024 4:05 PM ICING MIXER 07/15/2024 4:20 PM ICING MIXER us Karey Gonzalez MD LAB - MICRO GENERAL ORDERABLES F inal Result [facility] LABORATORY [facility] Inf. Diseases Diag. Lab [address] [facility], [address] [place] [address], [facility] * Lactic acid whole blood (07/15/2024 2:13 PM ICING MIXER) Only the most recent of3 resultswithin the time period is included. Lactic Acid 0.9 0.7 - 2.0 mmol/L 07/15/2024 2:37 PM ICING MIXER LABORATORY Blood STRUCTURE OF LEFT HAND / Unknown Venipuncture / Unknown 07/15/2024 2:13 PM ICING MIXER 07/15/2024 2:30 PM ICING MIXER us Karey Gonzalez MD LAB - BLOOD ORDERABLES Final Res ult Performing Organization Address City/[facility] Co de Phone Number LABORATORY [facility] [address], [address] [place] [address], [facility] [phone] * (ABNORMAL) Iron and iron binding capacity (07/15/2024 2:13 PM ICING MIXER) Iron 9(L) 37 - 145 ug/dL 07/15/2024 3:52 PM ICING MIXER LABORATORY Iron Binding Capacity 263 240 - 430 ug/dL 07/15/2024 3:52 PM ICING MIXER LABORATORY Iron Sat Index 3(L) 15 - 46 % 07/15/2024 3:52 PM ICING MIXER LABORATORY Blood STRUCTURE OF LEFT HAND / Unknown Venipuncture / Unknown 07/15/2024 2:13 PM ICING MIXER 07/15/2024 2:30 PM ICING MIXER us Karey Gonzalez MD LAB - BLOOD ORDERABLES Final Res ult LABORATORY [facility] [address], [address] [place] [address], [facility] [phone] * Ferritin (07/15/2024 2:13 PM ICING MIXER) Ferritin 166 6 - 175 ng/mL 07/15/2024 11:07 PM ICING MIXER [facility]U LABORATORY Blood STRUCTURE OF LEFT HAND / Unknown Venipuncture / Unknown 07/15/2024 2:13 PM ICING MIXER 07/15/2024 2:30 PM ICING MIXER us Karey Gonzalez MD LAB - BLOOD ORDERABLES Final Res ult U LABORATORY [facility] Lab [address] [facility], [address] [phone] * Vitamin B12 (07/15/2024 2:13 PM ICING MIXER) Vitamin B12 536 232 - 1,245 pg/mL 07/15/2024 11:07 PM ICING MIXER U LABORATORY Blood STRUCTURE OF LEFT HAND / Unknown Venipuncture / Unknown 07/15/2024 2:13 PM ICING MIXER 07/15/2024 2:30 PM ICING MIXER us Karey Gonzalez MD LAB - BLOOD ORDERABLES Final Res ult U LABORATORY [facility] Lab [address] [facility], [address] [phone] * US OB < 14 Weeks Single (07/15/2024 1:28 PM ICING MIXER) Anatomical Region Laterality Modality Abdomen/Pelvis Ultrasound Impressions 07/15/2024 5:11 PM ICING MIXER IMPRESSION: 1. Single living intrauterine gestation. 2. tachycardia with heart rate ranging from 192-207 bpm. MARIA A HOWELL MD SYSTEM ID: [id number] Narrative 07/15/2024 5:11 PM ICING MIXER US OB < 14 WEEKS SINGLE-TRANSABDOMINAL 07/15/2024 1:28 PM CLINICAL HISTORY: 13 weeks , admitted with infected renal stone and sepsis TECHNIQUE: Transabdominal scans were performed. COMPARISON: None. FINDINGS: UTERUS: Single normal appearing intrauterine gestation sac. CRL: measures 73 mm, equals 13 weeks 3 days. HEART RATE: 192-207 bpm. AMNIOTIC FLUID: Normal. PLACENTA: Posterior. RIGHT OVARY: Normal. LEFT OVARY: Obscured by bowel gas. Procedure Note Maria A Howell MD - 07/15/2024 US OB < 14 WEEKS SINGLE-TRANSABDOMINAL 07/15/2024 1:28 PM CLINICAL HISTORY: 13 weeks , admitted with infected renal stone and sepsis TECHNIQUE: Transabdominal scans were performed. COMPARISON: None. FINDINGS: UTERUS: Single normal appearing intrauterine gestation sac. CRL: measures 73 mm, equals 13 weeks 3 days. HEART RATE: 192-207 bpm. AMNIOTIC FLUID: Normal. PLACENTA: Posterior. RIGHT OVARY: Normal. LEFT OVARY: Obscured by bowel gas. IMPRESSION: 1. Single living intrauterine gestation. 2. tachycardia with heart rate ranging from 192-207 bpm. MARIA A HOWELL MD SYSTEM ID: [id number] Karey Gonzalez MD [facility] US ORDERABLES Final Result * Procalcitonin (07/15/2024 7:56 AM ICING MIXER) Procalcitonin 0.42 <0.50 ng/mL 07/15/2024 8:52 AM ICING MIXER LABORATORY Comment: Interpretation and Recommendations <0.5 ng/mL: Systemic bacterial infection unlikely. Local bacterial infection is possible. 0.5-1.99 ng/mL: Systemic bacterial infection possible, but various other conditions are known to induce PCT as well. >=2.00 ng/mL: Systemic bacterial infection likely, unless other causes are known. Decision to start antibiotics should not be based on procalcitonin level alone. See Procalcitonin Guidance document for more details. [email or web address] Factors that may affect PCT levels (not all-inclusive): ?? - Increased PCT level ?Severe trauma/lovelace ?Invasive surgery ?Cooling therapy after cardiac arrest/surgery ?Treatment with agents which stimulate cytokines ?Acute kidney injury ?Chronic kidney disease and end stage renal disease ?Acute graft vs host disease ?Non-specific shock causing decreased organ perfusion and/or infarction ?? - Normal or unchanged PCT level ?Early in infections (if low and infection is suspected, repeating in 6-12 hours is recommended) ?Chronic infections (endocarditis, osteomyelitis, prosthetic device/graft infections) ?Localized infections (cellulitis, wound infections, intra-abdominal abscess) Note: PCT has not been extensively studied in /, pediatrics, severe immunosuppression, and cystic fibrosis. Blood STRUCTURE OF LEFT WRIST REGION / Unknown Venipuncture / Unknown 07/15/2024 7:56 AM ICING MIXER 07/15/2024 8:11 AM ICING MIXER us Karey Gonzalez MD LAB - BLOOD ORDERABLES Final Res ult LABORATORY [facility] [address], [address] [place] [address], [facility] [phone] * Hepatic panel (07/15/2024 7:56 AM ICING MIXER) Protein Total 6.8 6.4 - 8.3 g/dL 07/15/2024 8:52 AM [facility] Albumin 3.6 3.5 - 5.2 g/dL 07/15/2024 8:52 AM [facility] Bilirubin Total 0.3 <=1.2 mg/dL 07/15/2024 8:52 AM [facility] Alkaline Phosphatase 77 40 - 150 U/L 07/15/2024 8:52 AM [facility] AST 20 0 - 45 U/L 07/15/2024 8:52 AM [facility] ALT 11 0 - 50 U/L 07/15/2024 8:52 AM [facility] Bilirubin Direct <0.20 0.00 - 0.30 mg/dL 07/15/2024 8:52 AM [facility] Blood STRUCTURE OF LEFT WRIST REGION / Unknown Venipuncture / Unknown 07/15/2024 7:56 AM ICING MIXER 07/15/2024 8:11 AM [facility] Karey Gonzalez MD LAB - BLOOD ORDERABLES Final Res ult Performing Organization Address City/[facility]/ZIP Co de Phone Number [facility] [address], [address] [place] [address], [facility] [phone] * (ABNORMAL) RBC and Platelet Morphology (07/15/2024 6:00 AM ICING MIXER) RBC Morphology Confirmed RBC Indices 07/15/2024 7:37 AM [facility] Platelet Assessment Automated Count Confirmed. Platelet morphology is normal. Automated Count Confirmed. Platelet morphology is normal. CIERRA 07/15/2024 7:37 AM [facility] Toxic Neutrophils Present(A) None Seen CIERRA 07/15/2024 7:37 AM [facility] Blood BLOOD SPECIMEN / Unknown Venipuncture / Unknown 07/15/2024 6:00 AM ICING MIXER 07/15/2024 6:12 AM ICING MIXER Parveen Kwok MD LAB - BLOOD ORDERABLES F inal Result [facility] [address], [address] [place] [address], [facility] [phone] * (ABNORMAL) CBC with platelets and differential (07/15/2024 6:00 AM ICING MIXER) WBC Count 18.7(H) 4.0 - 11.0 10e3/uL 07/15/2024 7:37 AM [facility] RBC Count 3.24(L) 3.80 - 5.20 10e6/uL 07/15/2024 7:37 AM [facility] Hemoglobin 10.1(L) 11.7 - 15.7 g/dL 07/15/2024 7:37 AM [facility] Hematocrit 28.2(L) 35.0 - 47.0 % 07/15/2024 7:37 AM [facility] MCV 87 78 - 100 fL 07/15/2024 7:37 AM [facility] MCH 31.2 26.5 - 33.0 pg 07/15/2024 7:37 AM [facility] MCHC 35.8 31.5 - 36.5 g/dL 07/15/2024 7:37 AM [facility] RDW 12.0 10.0 - 15.0 % 07/15/2024 7:37 AM [facility] Platelet Count 211 150 - 450 10e3/uL 07/15/2024 7:37 AM [facility] % Neutrophils 83 % 07/15/2024 7:37 AM [facility] % Lymphocytes 3 % 07/15/2024 7:37 AM [facility] % Monocytes 7 % 07/15/2024 7:37 AM [facility] % Eosinophils 6 % 07/15/2024 7:37 AM [facility] % Basophils 0 % 07/15/2024 7:37 AM [facility] % Immature Granulocytes 1 % 07/15/2024 7:37 AM [facility] NRBCs per 100 WBC 0 <1 /100 024 7:37 AM [facility] Absolute Neutrophils 15.5(H) 1.6 - 8.3 10e3/uL 07/15/2024 7:37 AM [facility] Absolute Lymphocytes 0.6(L) 0.8 - 5.3 10e3/uL 07/15/2024 7:37 AM [facility] Absolute Monocytes 1.3 0.0 - 1.3 10e3/uL 07/15/2024 7:37 AM [facility] Absolute Eosinophils 1.1(H) 0.0 - 0.7 10e3/uL 07/15/2024 7:37 AM [facility] Absolute Basophils 0.0 0.0 - 0.2 10e3/uL 07/15/2024 7:37 AM [facility] Absolute Immature Granulocytes 0.1 <=0.4 10e3/uL 07/15/2024 7:37 AM [facility]ING M[facility]ER LABORATORY Absolute NRBCs 0.0 10e3/uL 07/15/2024 7:37 AM [facility]ING MIXER LABORATORY Blood BLOOD SPECIMEN / Unknown Venipuncture / Unknown 07/15/2024 6:00 AM ICING MIXER 07/15/2024 6:12 AM ICING MIXER us Parveen Kwok MD LAB - BLOOD ORDERABLES F inal Result LABORATORY [facility] [address], [address] [place] [address], [facility] [phone] * (ABNORMAL) Urine Culture Aerobic Bacterial (07/15/2024 12:39 AM ICING MIXER) Culture 10,000-50,000 CFU/mL Enterococcus faecalis(A) CIERRA 07/17/2024 10:30 PM ICING MIXER [facility] Culture 10,000-50,000 CFU/mL Enterococcus faecalis(A) 07/17/2024 10:30 PM ICING MIXER [facility] Urine MID-STREAM URINE SPECIMEN / Unknown Non-blood Collection / Unknown 07/15/2024 12:39 AM ICING MIXER 07/15/2024 12:45 AM ICING MIXER Narrative Organism Antibiotic Method Susceptibility Enterococcus faecalis Ampicillin CIERRA <=2 ug/mL: Susceptible Enterococcus faecalis Vancomycin CIERRA 1 ug/mL: Susceptible Enterococcus faecalis Nitrofurantoin CIERRA <=16 ug/mL: Susceptible Enterococcus faecalis Ampicillin CIERRA <=2 ug/mL: Susceptible Enterococcus faecalis Vancomycin CIERRA 1 ug/mL: Susceptible Enterococcus faecalis Nitrofurantoin CIERRA <=16 ug/mL: Susceptible us Savannah German MD LAB - MICRO GENERAL ORDERABLE S Final Result [facility] Inf. Diseases Diag. Lab [address] [facility], [address] [place] [address], [facility] * Imaging Procedure Note (07/15/2024 12:14 AM ICING MIXER) Narrative Savannah German MD - 07/15/2024 12:14 AM ICING MIXER Savannah German MD ? 07/15/2024 12:14 AM [facility] Procedure: Imaging Procedure Note Date/Time: 07/15/2024 12:14 AM Performed by: Savannah German MD Authorized by: Savannah German MD ??IR Fellow Physician: Pre Procedure Diagnosis: L renal stone Post Procedure Diagnosis: Same UNIVERSAL PROTOCOL Site Marked: Yes Prior Images Obtained and Reviewed: ??Yes Required items: Required blood products, implants, devices and special equipment available ?? Patient identity confirmed: ??Arm band, provided demographic data, hospital-assigned identification number and verbally with patient Patient was reevaluated immediately before administering moderate or deep sedation or anesthesia Confirmation Checklist: ??Correct equipment/implants were available, procedure was appropriate and matched the consent or emergent situation, relevant allergies and patient's identity using two indicators Time out: Immediately prior to the procedure a time out was called ?? [place] Protocol: the Joint Commission [place] Protocol was followed ?? Preparation: Patient was prepped and draped in usual sterile fashion ?? ANESTHESIA Anesthesia: ??Local infiltration Local Anesthetic: ??Lidocaine 1% without epinephrine SEDATION Patient Sedated: No ?? See dictated procedure note for full details. Findings: Successful 10F left neph tube placement, to gravity drain, sample sent for culture Specimens: none Procedural Complications: None Condition: Stable PROCEDURE Patient Tolerance: ??Patient tolerated the procedure well with no immediate complications Length of time physician/provider present for 1:1 monitoring during sedation: 0 min Savannah German MD PROCEDURE/MINOR SURGICAL [facility]ACHO [facility]NSON Final Result * IR Nephrostomy Tube Placement Left (07/15/2024 12:09 AM ICING MIXER) Anatomical Region Laterality Modality Abdomen/Pelvis Radio Fluoroscop y Impressions 07/15/2024 1:39 AM ICING MIXER IMPRESSION: ?? 1. Successful 10 Swedish left nephrostomy tube placement. PLAN: Nephrostomy tube to gravity drain. SAVANNAH GERMAN MD Narrative 07/15/2024 1:39 AM ICING MIXER DATE: 07/15/2024 PROCEDURE: ANTEGRADE PYELOGRAM AND PERCUTANEOUS NEPHROSTOMY 1. Ultrasound-guided access of the left intrarenal collecting system. A permanent image was stored. 2. Antegrade pyelography. 3. Percutaneous nephrostomy tube placement. 4. Moderate sedation. INTERVENTIONAL RADIOLOGIST: Savannah German MD INDICATION: 28-year-old female noted to have obstructing left ureteral calculus with suspected urosepsis. Plan for left nephrostomy tube placement. CONSENT: The risks, benefits and alternatives of the procedure were discussed with the patient ??in detail. All questions were answered. Informed consent was given to proceed with the procedure. MODERATE SEDATION: Versed 0 mg IV; Fentanyl 125 mcg IV. During the time out, immediately prior to the administration of medications, the patient was reassessed for adequacy to receive conscious sedation. Under physician supervision, Versed and fentanyl were administered for moderate sedation. Pulse oximetry, heart rate and blood pressure were continuously monitored by an independent trained observer. The physician spent 15 minutes of [id number] sedation time with the patient. CONTRAST: 10 cc into the collecting system. FLUOROSCOPIC TIME: 2.5 minutes. RADIATION DOSE: Air Kerma: 24 mGy. COMPLICATIONS: No immediate complications. UNIVERSAL PROTOCOL: The operative site was marked and any prior imaging was reviewed. Required items including blood products, implants, devices and special equipment was made available. Patient identity was confirmed either verbally, with demographic information, hospital assigned identification or other identification markers. A timeout was performed immediately prior to the procedure. STERILE BARRIER TECHNIQUE: Maximum sterile barrier technique was used. Cutaneous antisepsis was performed at the operative site with application of 2% chlorhexidine and large sterile drape. Prior to the procedure, the wire stitcher operator and psychologist research assistant performed hand hygiene and wore hat, mask, sterile gown, and sterile gloves during the entire procedure. PROCEDURE: ?? Using real-time sonographic guidance, a 22 gauge needle was inserted into the collecting system, and an antegrade pyelogram was performed. An AccuStick set was then placed, and a 10 Swedish nephrostomy tube was placed in the renal pelvis. A post placement nephrostogram was performed. The catheter was sutured to the skin and placed to gravity bag drainage. FINDINGS: Ultrasound imaging demonstrates chvs-fb-[id number] hydronephrosis. Post nephrostomy tube placement imaging demonstrates good positioning of the tube within the renal pelvis. Procedure Note Savannah German MD - 07/15/2024 DATE: 07/15/2024 PROCEDURE: ANTEGRADE PYELOGRAM AND PERCUTANEOUS NEPHROSTOMY 1. Ultrasound-guided access of the left intrarenal collecting system. A permanent image was stored. 2. Antegrade pyelography. 3. Percutaneous nephrostomy tube placement. 4. Moderate sedation. INTERVENTIONAL RADIOLOGIST: Savannah German MD INDICATION: 28-year-old female noted to have obstructing left ureteral calculus with suspected urosepsis. Plan for left nephrostomy tube placement. CONSENT: The risks, benefits and alternatives of the procedure were discussed with the patient in detail. All questions were answered. Informed consent was given to proceed with the procedure. MODERATE SEDATION: Versed 0 mg IV; Fentanyl 125 mcg IV. During the time out, immediately prior to the administration of medications, the patient was reassessed for adequacy to receive conscious sedation. Under physician supervision, Versed and fentanyl were administered for moderate sedation. Pulse oximetry, heart rate and blood pressure were continuously monitored by an independent trained observer. The physician spent 15 minutes of txdp-[id number] sedation time with the patient. CONTRAST: 10 cc into the collecting system. FLUOROSCOPIC TIME: 2.5 minutes. RADIATION DOSE: Air Kerma: 24 mGy. COMPLICATIONS: No immediate complications. UNIVERSAL PROTOCOL: The operative site was marked and any prior imaging was reviewed. Required items including blood products, implants, devices and special equipment was made available. Patient identity was confirmed either verbally, with demographic information, hospital assigned identification or other identification markers. A timeout was performed immediately prior to the procedure. STERILE BARRIER TECHNIQUE: Maximum sterile barrier technique was used. Cutaneous antisepsis was performed at the operative site with application of 2% chlorhexidine and large sterile drape. Prior to the procedure, the wire stitcher operator and psychologist research assistant performed hand hygiene and wore hat, mask, sterile gown, and sterile gloves during the entire procedure. PROCEDURE: Using real-time sonographic guidance, a 22 gauge needle was inserted into the collecting system, and an antegrade pyelogram was performed. An AccuStick set was then placed, and a 10 Swedish nephrostomy tube was placed in the renal pelvis. A post placement nephrostogram was performed. The catheter was sutured to the skin and placed to gravity bag drainage. FINDINGS: Ultrasound imaging demonstrates ayap-gy-gysrffbl hydronephrosis. Post nephrostomy tube placement imaging demonstrates good positioning of the tube within the renal pelvis. IMPRESSION: 1. Successful 10 Swedish left nephrostomy tube placement. PLAN: Nephrostomy tube to gravity drain. SAVANNAH GERMAN MD Savannah German MD IMG IR ORDERABLES Final Resul t * HIV-1 Antibody (External Result) (07/18/2022 12:00 PM ICING MIXER) [facility] HIV 1&2 Antibody (External) Nonreactive Nonreactive [facility] 07/18/2022 12:0 0 PM ICING MIXER [place] [facility] - HIM EXTERNAL RESU LT Final Result Performing Organization Address City/[facility]/ZIP Co de Phone Number [facility] * CHLAMYDIA TRACHOMATIS PCR (02/22/2018 1:40 PM CDT) [facility] Specimen Description Urine 02/22/2018 1:42 PM CDT [facility] Chlamydia Trachomatis PCR Negative NEG^Negat emmanuel 02/23/2018 12:[address] [facility] Comment: Negative for C. trachomatis rRNA by electric sign wirer mediated amplification. A negative result by electric sign wirer mediated amplification does not preclude the presence of C. trachomatis infection because results are dependent on proper and adequate collection, absence of inhibitors, and sufficient rRNA to be detected. Urine specimen (specimen) 02/22/2018 1:40 PM CDT 02/22/2018 1:41 PM CDT Deedee aCstaneda PA-C LAB - MICRO GENERAL ORDERABLE S Final Result Performing Organization Address City/[facility]/ZIP Co de Phone Number [facility] [address] [place] [address], [facility] [address] [place] [address] * Hepatitis C antibody (10/28/2015 9:20 AM ICING MIXER) [facility] Hepatitis C Antibody Nonreactive Assay performance characteristics have not been established for newborns, infants, and children NR [facility] Blood specimen (specimen) 10/28/2015 9:20 AM ICING MIXER 10/28/2015 9:21 AM ICING MIXER Deedee Castaneda PA-C LAB - BLOOD ORDERABLES Final Result [facility] [address] [place], [place] [id number] [place] [address] from Last 3 Months or Most Recently Relevant to Health Maintenance Insurance [place] [employer] COMM[employer]CIAL [employer] COMMERCIAL Advance Directives For more information, please contact: [phone] * Full Code (Latest Code Status on File) Date Activated Date Inactivated Comments 07/18/2024 12:14 PM Question Answer Comments Code status determined by: Discussion with patie nt/ legal decision maker * Full Code Date Activated Date Inactivated Comments 07/14/2024 9:31 PM 07/18/2024 12:14 PM All basic a nd advanced life-sustaining interventions are performed as appropriate Question Answer Comments Code status determined by: Discussion with patie nt/ legal decision maker * Full Code Date Activated Date Inactivated Comments 01/29/2023 10:06 AM 01/31/2023 5:37 PM All basic a nd advanced life-sustaining interventions are performed as appropriate Question Answer Comments Code status determined by: Discussion with patie nt/ legal decision maker Care Teams [place] Relationship Specialty Start Date End Date Deedee Castaneda PA-C PCP - General Family Practice 04/26/13 Ayleen Naik MD [address] [place] [address] Hospitalist Endocrinology, Diabetes, and Metabolism 07/28/22
--- OUTSIDE RECORDS SUMMARY | 2024-07-20 19:09 | XMS_ITS | Encounter Summary ---
Author Organization [facility] Address [address] [place] [address] Care Team Providers Care Obstetrician/Gynecologist Name Role Phone Deedee Castaneda PA-C Primary Care Provider Ayleen Naik MD Unavailable [phone] Reason for Visit * Auth/Cert (Routine) Specialty Diagnoses / Procedures Referred By Rex t Referred To Contact Med Surg Diagnoses Obstructing stone, super imposed sepsis Sepsis (H) [facility] [address] [id number] Phone: tel: fax: Referral ID Status Reason Start Date Expiration Date Visits Re quested Visits Authorized [id number] 1 1 Encounter Details Date Type Department Care Team (Latest Contact Info) Description 07/14/2024 9:20 PM PUBLIC POLICY ANALYST - 07/18/2024 4:19 PM PUBLIC POLICY ANALYST Hospital Encounter [facility] Surgery [address] [id number] Pool Chan MD [address] [id number] Parveen Kwok MD [address] [id number] Karey Gonzalez MD [address] [place] [address] Sepsis without acute organ dysfunction, due to unspecified organism (H) (Primary Dx) Discharge Disposition: Home or Self Care Social History Tobacco Use Types Packs/Day Years Used Date Smoking Tobacco: Never Smokeless Tobacco: Never Alcohol Use Standard Drinks/Week Comments No 0 (1 standard drink = 0.6 oz pur e alcohol) PHQ-2 Answer Date Recorded PHQ-2 Score 0 10/04/2022 [place] Depression Scale Answer Date Recorded Last EPDS [...] Answer Date Recorded Do you have housing? (Denisse g is defined as stable permanent housing and does not include staying ouside in a car, in a tent, in an abandoned building, in an overnight skilled nursing, or couch-surfing.) Yes 07/15/2024 Are you worried [...] on file documented as of this encounter Last Filed Vital Signs Vital Sign Reading Time Taken Comments Blood Pressure 110/74 07/18/2024 11:52 AM PUBLIC POLICY ANALYST Pulse 88 07/18/2024 11:52 AM PUBLIC POLICY ANALYST Temperature 36.7 ??C (98 ??F) 07/18/2024 11:52 AM PUBLIC POLICY ANALYST Respiratory Rate 16 07/18/2024 11:52 AM PUBLIC POLICY ANALYST Oxygen Saturation 99% 07/18/2024 11:52 AM PUBLIC POLICY ANALYST Inhaled Oxygen Concentration - - Weight - - Height - - Body Mass Index - - documented in this encounter Discharge Summaries * Karey Gonzalez MD - 07/18/2024 12:14 PM CST [facility] Hospitalist Discharge Summary Date of Admission: 07/14/2024 Date of Discharge: 07/18/2024 Discharging Provider: Karey Gonzalez MD Discharge Service: Hospitalist Service Discharge Diagnoses Sepsis due to E faecalis UTI and obstructive left nephrolithiasis S/p percutaneous nephrostomy tube placement Sepsis(lactic acidosis, leukocytosis, tachycardia, fever) , resolved 13 weeks gestational . Iron deficiency anemia Constipation, resolved Acute mild hyponatremia, resolved Clinically Significant Risk Factors Follow-ups Needed After Discharge Follow-up Appointments Follow-up and recommended labs and tests Follow up with primary care provider, Deedee Castaneda, within 7 days for hospital follow- up. The following labs/tests are recommended: CBC. Follow-up with OBG CONDOMINIUM PROPERTY MANAGER at [facility] as recommended. Follow-up with interventional radiology in 5 weeks for percutaneous nephrostomy tube exchange. Follow-up with urology in 4 weeks. Unresulted Labs Ordered in the Past 30 Days of this Admission Date and Time Order Name Status Description 07/15/2024 3:22 PM Blood Culture Hand, Left Preliminary These results will be followed up by PCP and ACADEMIC ADVISEMENT DIRECTOR CONDOMINIUM PROPERTY MANAGER Discharge Disposition Discharged to home Condition at discharge: Stable Hospital Course Dash Webb is a markedly pleasant 28 year old woman who is currently 13 weeks , whopresents with left sided flank pain, nausea, vomiting, fever, and hematuria, and is found to have sepsis due to UTI and obstructive left nephrolithiasis. Sepsis due to E faecalis UTI and obstructive left nephrolithiasis: Resolved Sepsis(lactic acidosis, leukocytosis, tachycardia, fever) As above, patient is currently approximately 13 weeks by scan done on 07/12/2024. Patient now presented for evaluation of acute left-sided flank pain, nausea, vomiting, fever and hematuria. Patient was found to be febrile, tachycardic, fortunately no hypotension. Patient had acute leukocytosis to 18K. UA showed pyuria and hematuria CT abdomen pelvis completed showing 4 mm left stone at the UPJ causing mild hydronephrosis COVID, influenza and RSV came back negative. On presentation, patient did not have any signs and symptoms of severe sepsis or septic shock --Patient has been admitted for further evaluation and management. --Her symptoms on admission were persistent with sepsis(leukocytosis, tachycardia, tachypnea) secondary to UTI and obstructive left nephrolithiasis --Patient underwent urgent left nephrostomy tube placement by interventional radiology on admissionafter discussion. --Patient will require percutaneous nephrostomy tube exchange every 6 weeks or sooner if patient starts to have more sediments in the urine, IR to arrange follow-up with patient. -- Initially patient was a started on aggressive hydration due to significant tachycardia, persistent fever and chills, later as patient clinically improved fluids were stopped. -- Blood cultures were drawn, so far negative, final cultures will be resulted after patient is discharged. -- Lactic acidosis improved with fluid resuscitation. -- Urine culture from outside facility and from current admission growing Enterococcus faecalis more than 100,000 colonies, considering patient and history of penicillin allergy, consulted infectious disease if ceftriaxone should be changed to ampicillin and what would be the best antibiotic plan for discharge as patient still has nephrostomy tube --ID recommended continuing ceftriaxone initially and then was switched to amoxicillin 1000 mg p.o.every 8 hours -- Patient was monitored for 24 hours in hospital to ensure no reaction from penicillin, patient tolerated amoxicillin well and is planned to be discharged for 10 more days of amoxicillin to completetotal of 14-day antibiotic course. -- Urology has been consulted, recommending patient to strain urine and sent home with a strainer upon discharge, have signed off now -- If stone caught in a strainer, refer to IR for clamping trial/possible tube removal prior to completion of -- Otherwise patient might need to continue percutaneous nephrostomy tube until delivered and repeat imaging -- Started patient on Flomax which seems to be safe during per ACADEMIC ADVISEMENT DIRECTOR on 07/16/24, 30-dayprescription is given, might be helpful in passing his stone -- PCP or OBG CONDOMINIUM PROPERTY MANAGER to give patient further prescriptions of Flomax if patient has not passed the stone at the time of follow-up --Follow-up with interventional radiology, urology and PCP after discharge 13 weeks gestational : Iron deficiency anemia : Most likely secondary to associated Iron came back low with low iron saturation index, -- ACADEMIC ADVISEMENT DIRECTOR consulted on admission for further evaluation and comanagement along with review of safety profile of all the medications including Tylenol, Zofran, narcotics, ceftriaxone and Flomax -- Appreciate their input, okay with current medications also okay with the starting patient on bowel regimen for ongoing constipation -- Ultrasound OB less than 14 weeks completed showing single living intrauterine gestation, tachycardia with heart rate ranging from 192-207 bpm -- Patient was given IV Venofer 300 mg for 2 doses , as patient is suffering from severe constipation and told me that oral iron makes her more constipated Constipation: Resolved --During hospitalization, patient received MiraLAX along with senna docusate, now having multiple bowel movements -- As patient has received IV Venofer, patient is hoping she can just continue to take multivitaminand does not have to take oral iron which contributes to her constipation -- Discussed with patient that if she have any issues with constipation she can take [id number] MiraLAX, patient showed understanding, does not need any prescription right now Acute hyponatremia: Resolved most likely secondary to hypovolemia associated with sepsis -- Sodium is improved to 134 Patient was seen and examined on the day of discharge ,she is feeling well, does not have any complaints , I did review the discharge medications and instructions with the patient and plan for her tofollow up with the PCP after the hospitalization .patient was in agreement , she is discharged in stable condition to her home Consultations This Hospital Stay CARE MANAGEMENT / SOCIAL WORK IP CONSULT INTERVENTIONAL RADIOLOGY ADULT/PEDS IP CONSULT UROLOGY IP CONSULT MASTER COASTAL WATERS IP CONSULT CARE MANAGEMENT / SOCIAL WORK IP CONSULT PHARMACY IP CONSULT INFECTIOUS DISEASES IP CONSULT Code Status Full Code Time Spent on this Encounter I, Karey Gonzalez MD, personally saw the patient today and spent greater than 30 minutes discharging this patient. Karey Gonzalez MD [facility] [address] [place] [address] [address] [facility] [id number] Physical Exam Vital Signs: Temp: 98 ??F (36.7 ??C) Temp src: Oral BP: 110/74 Pulse: 88 Resp: 16 SpO2: 99 % O2 Device: None (Room air) Weight: 0 lbs 0 oz Physical Exam Vitals and nursing note reviewed. Constitutional: Appearance: She is well-developed. HENT: Head: Normocephalic and atraumatic. Eyes: Conjunctiva/sclera: Conjunctivae normal. Pupils: Pupils are equal, round, and reactive to light. Neck: Thyroid: No thyromegaly. Cardiovascular: Rate and Rhythm: Normal rate and regular rhythm. Heart sounds: Normal heart sounds. No murmur heard. Pulmonary: Effort: Pulmonary effort is normal. No respiratory distress. Breath sounds: Normal breath sounds. No wheezing. Abdominal: General: Bowel sounds are normal. Palpations: Abdomen is soft. Tenderness: There is no abdominal tenderness. There is no guarding or rebound. Musculoskeletal: General: No deformity. Normal range of motion. Cervical back: Normal range of motion and neck supple. Skin: General: Skin is warm and dry. Neurological: Mental Status: She is alert and oriented to person, place, and time. Psychiatric: Behavior: Behavior normal. Primary Care Physician Deedee Castaneda Discharge Orders Reason for your hospital stay You were admitted to the hospital secondary to Sepsis due to Enterococcus faecalis UTI and obstructive left nephrolithiasis. During the hospitalization you have been evaluated by interventional radiology and you have undergone percutaneous nephrostomy tube placement which will require replacement every 6 weeks. You are also evaluated by ACADEMIC ADVISEMENT DIRECTOR , urology and infectious disease. Follow-up and recommended labs and tests Follow up with primary care provider, Deedee Castaneda, within 7 days for hospital follow- up. The following labs/tests are recommended: CBC. Follow-up with OBG CONDOMINIUM PROPERTY MANAGER at [facility] as recommended. Follow-up with interventional radiology in 5 weeks for percutaneous nephrostomy tube exchange. Follow-up with urology in 4 weeks. Activity Your activity upon discharge: activity as tolerated and no driving for today Discharge Instructions You were admitted to the hospital secondary to Sepsis due to Enterococcus faecalis UTI and obstructive left nephrolithiasis. During the hospitalization you have been evaluated by interventional radiology and you have undergone percutaneous nephrostomy tube placement which will require replacement every 6 weeks. You are also evaluated by ACADEMIC ADVISEMENT DIRECTOR , urology and infectious disease. You have received 4days of IV antibiotics. You are discharged on amoxicillin 1000 mg every 8 hours for the next 10 days. Please finish your course of antibiotics. You will also require percutaneous nephrostomy tube to be replaced every 6 weeks or sooner as recommended. Please keep your follow-up appointments with inte rventional radiology. You are given 1 month of Flomax, discussed with your PCP, OBG CONDOMINIUM PROPERTY MANAGER or urology to give you further refills. Please continue to use strainer with urination at home also and inform interventional radiology and urology if you see his stone is passed out. You were also given 2 dosages of IV Venofer during the hospitalization, you can continue to take your multivitamin, if needed oral iron supplementation can be added by your PCP or ACADEMIC ADVISEMENT DIRECTOR. Full Code Diet Follow this diet upon discharge: Orders Placed This Encounter Regular Diet Adult Significant Results and Procedures Results for orders placed or performed during the hospital encounter of 07/14/24 IR Nephrostomy Tube Placement Left Narrative DATE: 07/15/2024 PROCEDURE: ANTEGRADE PYELOGRAM AND PERCUTANEOUS NEPHROSTOMY 1. Ultrasound-guided access of the left intrarenal collecting system. A permanent image was stored. 2. Antegrade pyelography. 3. Percutaneous nephrostomy tube placement. 4. Moderate sedation. INTERVENTIONAL RADIOLOGIST: Savannah Chang MD INDICATION: 28-year-old female noted to have [...] observer. The physician spent 15 minutes of [id number] sedation time with the patient. CONTRAST: 10 [...] sterile drape. Prior to the procedure, the powerplant operator and engineer third assistant performed hand hygiene and wore hat, mask, sterile gown, and sterile gloves during the entire procedure. PROCEDURE: Using real-time sonographic guidance, a 22 gauge needle was inserted into the collecting system, and an antegrade pyelogram was performed. An AccuStick set was then placed, and a 10 Anguillan nephrostomy tube was placed in the renal pelvis. A post placement nephrostogram was performed. The catheter was sutured to the skin and placed to gravity bag drainage. FINDINGS: Ultrasound imaging demonstrates [id number] hydronephrosis. Post nephrostomy tube placement imaging demonstrates good positioning of the tube within the renal pelvis. Impression IMPRESSION: 1. Successful 10 Anguillan left nephrostomy tube placement. PLAN: Nephrostomy tube to gravity drain. SAVANNAH CHANG MD US OB < 14 Weeks Single Narrative US OB < 14 WEEKS SINGLE-TRANSABDOMINAL 07/15/2024 1:28 PM CLINICAL HISTORY: 13 weeks , admitted with infected renal stone and sepsis TECHNIQUE: Transabdominal scans were performed. COMPARISON: None. FINDINGS: UTERUS: Single normal appearing intrauterine gestation sac. CRL: measures 73 mm, equals 13 weeks 3 days. HEART RATE: 192-207 bpm. AMNIOTIC FLUID: Normal. PLACENTA: Posterior. RIGHT OVARY: Normal. LEFT OVARY: Obscured by bowel gas. Impression IMPRESSION: 1. Single living intrauterine gestation. 2. tachycardia with heart rate ranging from 192-207 bpm. MARIA A MARCOS MD SYSTEM ID: [id number] Discharge Medications Current Discharge Medication List START taking these medications Details !! acetaminophen (TYLENOL) 325 MG tablet Take 2 tablets (650 mg) by mouth every 4 hours as needed for mild pain or other (and adjunct with moderate or severe pain or per patient request). Associated Diagnoses: Sepsis without acute organ dysfunction, due to unspecified organism (H) amoxicillin (AMOXIL) 500 MG capsule Take 2 capsules (1,000 mg) by mouth every 8 hours for 10 days. Qty: 60 capsule, Refills: 0 Associated Diagnoses: Sepsis without acute organ dysfunction, due to unspecified organism (H) !! - Potential duplicate medications found. Please discuss with provider. CONTINUE these medications which have CHANGED Details tamsulosin (FLOMAX) 0.4 MG capsule Take 1 capsule (0.4 mg) by mouth daily. Qty: 30 capsule, Refills: 0 Comments: Future refills by PCP Dr. Deedee Castaneda with phone number [phone]. Associated Diagnoses: Sepsis without acute organ dysfunction, due to unspecified organism (H) CONTINUE these medications which have NOT CHANGED Details !! acetaminophen (TYLENOL) 500 MG tablet Take 500-1,000 mg by mouth every 6 hours as needed for mild pain. HYDROcodone-acetaminophen (NORCO) 5-325 MG tablet Take 1 tablet by mouth every 4 hours as needed for pain. ondansetron (ZOFRAN) 4 MG tablet Take 4 mg by mouth every 8 hours as needed for nausea or vomiting. Vit-Fe Fumarate-FA ( PLUS) 27-1 MG TABS Take 1 tablet by mouth daily. !! - Potential duplicate medications found. Please discuss with provider. Allergies Allergies Allergen Reactions Penicillins Hives IC POLICY ANALYST documented in this encounter Discharge Instructions * Discharge Instructions* Chayito Morales RN - 07/15/2024 3:35 PM PUBLIC POLICY ANALYST Follow-up and recommended labs and tests Follow up with primary care provider, Deedee Castaneda, within 7 days for hospital follow- up. The following labs/tests are recommended: CBC. Follow-up with OBG CONDOMINIUM PROPERTY MANAGER at [facility] as recommended. Follow-up with interventional radiology in 5 weeks for percutaneous nephrostomy tube exchange. Follow-up with urology in 4 weeks. You had a nephrostomy tube placed on 03/06/24: - Change the dressing around your drainage tube as it becomes soiled or every 2- 3 days. - Cover the tube site with plastic wrap when showering - Remove the wrap after the shower - Avoid bath tubs, hot tubs, and swimming pools - Avoid activities that will cause tugging or pulling of the drain - Contact numbers below if developing increasing sediment in urine - You will be contacted regarding having your tube exchanged as an outpatient Please call Medina GARCÍA guide plant at [phone] or Maryse GARCÍA COPY OPERATOR at [phone] for questions or concerns about the tube. You can leave a voicemail. We work Monday through Monday [phone] or [phone]. An alternative number to call for questions is Interventional Radiology at [phone] IC POLICY ANALYST IC POLICY ANALYST documented in this encounter Medications at Time of Discharge acetaminophen (TYLENOL) 325 MG tabletIndications :Sepsis without acute organ dysfunction, due to unspecified organism (H) Take 2 tablets (650 mg) by mouth every 4 hours as needed for mild pain or other (and adjunct with moderate or severe pain or per patient request). 07/18/2024 acetaminophen (TYLENOL) 500 MG tablet Take 500-1,000 mg by mouth every 6 hours as needed for mild pain. amoxicillin (AMOXIL) 500 MG capsuleIndication s:Urinary Tract Infection Take 2 capsules (1,000 mg) by mouth every 8 hours for 10 days. 60 capsule 07/18/2024 HYDROcodone-aceta minophen (NORCO) 5-325 MG tablet Take 1 tablet by mouth every 4 hours as needed for pain. 07/12/2024 ondansetron (ZOFRAN) 4 MG tablet Take 4 mg by mouth every 8 hours as needed for nausea or vomiting. 07/12/2024 Vit-Fe Fumarate-FA ( PLUS) 27-1 MG TABS Take 1 tablet by mouth daily. tamsulosin (FLOMAX) 0.4 MG capsuleIndication s:Sepsis without acute organ dysfunction, due to unspecified organism (H) Take 1 capsule (0.4 mg) by mouth daily. 30 capsule 07/18/2024 documented as of this encounter Progress Notes * Vinita Cabello RN - 07/18/2024 4:09 PM CST Discharge Note Patient discharged to home via private vehicle accompanied by sister. IV: Discontinued Prescriptions filled and given to patient/family. Belongings reviewed and sent with patient. Home medications returned to patient: NA Equipment sent with: patient. patient verbalizes understanding of discharge instructions. AVS given to patient. IC POLICY ANALYST * Betina Hamilton PA-C - 07/18/2024 10:01 AM CST Images from the original note were not included. [facility] Infectious Disease Progress Note Date of Service (when I saw the patient): 07/18/2024 Assessment & Plan Dash Webb is a 28 year old female who was admitted on 07/14/2024. Impression: 28 year old relatively healthy female who is 13 weeks recently treated for UTI now presenting with acute onset left flank pain, fever, n/v, and hematuria and found to have 4 mm left stone atthe UPJ causing mild hydronephrosis. -Urosepsis. Urine culture from outside hospital with >100K E. Faecalis, villarreal-sensitive. -Blood culture with no growth. -Urine culture from this admission with E. Faecalis, sensitive to Ampicillin. -S/p percutaneous nephrostomy tube 07/15/24. -Fevers resolved and leukocytosis trending down. -Allergy listed to PCN - hives as a child, but not sure. Tolerated Ceftriaxone and appears to be tolerating Amoxicillin now. Recommendations: Continue Amoxicillin. It is noted that she has a PCN allergy in chart of hives. She states she had a rash as a child, but unsure if it is a true allergy. We are relatively limited on antibiotics withher . She appears to be tolerating this. She should contact ID clinic ([phone]) if she develops any rashes after discharge. Continue Amoxicillin for 2 weeks total treatment. Urology following / managing perc neph tube. Patient and plan discussed with Dr. Perez. Betina Hamilton PA-C Interval History Tolerating antibiotics ok No new rashes or issues with antibiotics Labs reviewed No changes to past medical, social or family history Doing well. Appetite is good. Some pain around perc neph tube and some occasional left sided abdominal pain. Physical Exam Temp: 97.9 ??F (36.6 ??C) Temp src: Oral BP: 111/72 Pulse: 87 Resp: 16 SpO2: 98 % O2 Device: None (Room air) There were no vitals filed for this visit. Vital Signs with Ranges Temp: [97.9 ??F (36.6 ??C)-98.8 ??F (37.1 ??C)] 97.9 ??F (36.6 ??C) Pulse: [63-97] 87 Resp: [16-18] 16 BP: (111-136)/(72-83) 111/72 SpO2: [97 %-100 %] 98 % Constitutional: Awake, alert, cooperative, no apparent distress Lungs: Clear to auscultation bilaterally, no crackles or wheezing Cardiovascular: Regular rate and rhythm, normal S1 and S2, and no murmur noted Abdomen: Normal bowel sounds, soft, non-distended, non-tender. Perc neph tube in place. Skin: No rashes, no cyanosis, no edema Other: Medications Current Facility-Administered Medications Medication Dose Route Frequency Provider Last Rate Last Admin Current Facility-Administered Medications Medication Dose Route Frequency Provider Last Rate Last Admin amoxicillin (AMOXIL) capsule 1,000 mg 1,000 mg Oral Q8H Betina Del Valle PA-C 1,000 mg at 07/18/24 0609 iron sucrose (VENOFER) 300 mg in sodium chloride 0.9 % 290 mL intermittent infusion 300 mg Intravenous Daily Karey Gonzalez MD 193.3 mL/hr at 07/17/24 1027 300 mg at 07/17/24 1027 polyethylene glycol (MIRALAX) Packet 17 g 17 g Oral Daily Claudia Gerard MD 17 g at 07/18/24 0947 multivitamin w/iron per tablet 1 tablet 1 tablet Oral Daily Parveen Kwok MD 1 tablet at 07/18/24 0947 senna-docusate (SENOKOT-S/PERICOLACE) 8.6-50 MG per tablet 2 tablet 2 tablet Oral BID Karey Gonzalez MD 2 tablet at 07/18/24 0947 sodium chloride (PF) 0.9% PF flush 3 mL 3 mL Intracatheter Q8H Parveen Kwok MD 3 mL at 07/18/24 0609 tamsulosin (FLOMAX) capsule 0.4 mg 0.4 mg Oral Daily Karey Gonzalez MD 0.4 mg at 07/18/24 0947 Data All microbiology laboratory data reviewed. Recent Labs Lab Test 07/17/24 0741 07/16/24 0801 07/15/24 0600 WBC 12.0* 19.9* 18.7* HGB 9.8* 10.2* 10.1* HCT 27.5* 28.0* 28.2* MCV 86 87 87 PLT 249 208 211 Recent Labs Lab Test 07/16/24 0801 07/15/24 0756 01/29/23 1027 CR 0.45* 0.59 0.64 Urine culture at outside hospital with villarreal-sensitive E.faecalis. 07/15/2024 1605 07/17/2024 1901 Blood Culture Hand, Left [[id number]] Blood from Hand, Left Preliminary result Component Value Culture No growth after 2 days P 07/15/2024 0039 07/17/2024 2230 Urine Culture Aerobic Bacterial [[id number]] (Abnormal) Urine, Midstream Final result Component Value Culture 10,000-50,000 CFU/mL Enterococcus faecalis Abnormal 10,000-50,000 CFU/mL Enterococcus faecalis Abnormal Susceptibility Enterococcus faecalis (1) Enterococcus faecalis (2) CIERRA CIERRA Ampicillin <=2 ug/mL Susceptible <=2 ug/mL Susceptible Nitrofurantoin <=16 ug/mL Susceptible <=16 ug/mL Susceptible Vancomycin 1 ug/mL Susceptible 1 ug/mL Susceptible IC POLICY ANALYST * Betina Hamilton PA-C - 07/17/2024 12:28 PM CST [facility] Infectious Disease Progress Note Date of Service (when I saw the patient): 07/17/2024 Assessment & Plan Dash Webb is a 28 year old female who was admitted on 07/14/2024. Impression: 28 year old relatively healthy female who is 13 weeks recently treated for UTI now presenting with acute onset left flank pain, fever, n/v, and hematuria and found to have 4 mm left stone atthe UPJ causing mild hydronephrosis. -Urosepsis. Urine culture from outside hospital with >100K E. Faecalis, villarreal-sensitive. -Blood culture and urine culture from this admission pending. -S/p percutaneous nephrostomy tube 07/15/24. -Fevers and leukocytosis trending down. -Allergy listed to PCN - hives as a child, but not sure. Recommendations: Stop Ceftriaxone and start Amoxicillin. It is noted that she has a PCN allergy in chart of hives. She states she had a rash as a child, but unsure if it is a true allergy. Discussed with nurse and Pharmacist. Will monitor her closely. We are relatively limited on antibiotics with her . Following urine and blood cultures this admission. Final antibiotic recommendations to follow culture results and clinical course. Urology following / managing perc neph tube. Patient and plan discussed with Dr. Perez. Betina Hamilton PA-C Interval History Tolerating antibiotics ok No new rashes or issues with antibiotics Labs reviewed No changes to past medical, social or family history Doing well. Appetite is good. Some pain around perc neph tube. No abdominal pain. Physical Exam Temp: 97.7 ??F (36.5 ??C) Temp src: Oral BP: 105/72 Pulse: 97 Resp: 18 SpO2: 98 % O2 Device: None (Room air) There were no vitals filed for this visit. Vital Signs with Ranges Temp: [97.7 ??F (36.5 ??C)-98.8 ??F (37.1 ??C)] 97.7 ??F (36.5 ??C) Pulse: [78-99] 97 Resp: [18] 18 BP: (105-119)/(72-83) 105/72 SpO2: [98 %-100 %] 98 % Constitutional: Awake, alert, cooperative, no apparent distress Lungs: Clear to auscultation bilaterally, no crackles or wheezing Cardiovascular: Regular rate and rhythm, normal S1 and S2, and no murmur noted Abdomen: Normal bowel sounds, soft, non-distended, non-tender. Perc neph tube in place. Skin: No rashes, no cyanosis, no edema Other: Medications Current Facility-Administered Medications Medication Dose Route Frequency Provider Last Rate Last Admin Current Facility-Administered Medications Medication Dose Route Frequency Provider Last Rate Last Admin amoxicillin (AMOXIL) capsule 1,000 mg 1,000 mg Oral Q8H Betina Del Valle PA-C iron sucrose (VENOFER) 300 mg in sodium chloride 0.9 % 290 mL intermittent infusion 300 mg Intravenous Daily Karey Gonzalez MD 193.3 mL/hr at 07/17/24 1027 300 mg at 07/17/24 1027 polyethylene glycol (MIRALAX) Packet 17 g 17 g Oral Daily Claudia Gerard MD 17 g at 07/16/24 0802 multivitamin w/iron per tablet 1 tablet 1 tablet Oral Daily Parveen Kwok MD 1 tablet at 07/17/24 0825 senna-docusate (SENOKOT-S/PERICOLACE) 8.6-50 MG per tablet 2 tablet 2 tablet Oral BID Karey Gonzalez MD 2 tablet at 07/16/24 0802 sodium chloride (PF) 0.9% PF flush 3 mL 3 mL Intracatheter Q8H Parveen Kwok MD 3 mL at 07/17/24 0001 tamsulosin (FLOMAX) capsule 0.4 mg 0.4 mg Oral Daily Karey Gonzalez MD 0.4 mg at 07/17/24 0825 Data All microbiology laboratory data reviewed. Recent Labs Lab Test 07/17/24 0741 07/16/24 0801 07/15/24 0600 WBC 12.0* 19.9* 18.7* HGB 9.8* 10.2* 10.1* HCT 27.5* 28.0* 28.2* MCV 86 87 87 PLT 249 208 211 Recent Labs Lab Test 07/16/24 0801 07/15/24 0756 01/29/23 1027 CR 0.45* 0.59 0.64 07/15/2024 1605 07/16/2024 1901 Blood Culture Hand, Left [[id number]] Blood from Hand, Left Preliminary result Component Value Culture No growth after 1 day P 07/15/2024 0039 07/17/2024 0535 Urine Culture Aerobic Bacterial [[id number]] (Abnormal) Urine, Midstream Preliminary result Component Value Culture 10,000-50,000 CFU/mL Enterococcus faecalis Abnormal P 10,000-50,000 CFU/mL Enterococcus faecalis Abnormal P Urine culture at outside hospital with villarreal-sensitive E.faecalis. IC POLICY ANALYST * Karey Gonzalez MD - 07/17/2024 8:41 AM CST [facility] Medicine Progress Note - Hospitalist Service Date of Admission: 07/14/2024 Assessment & Plan Dash Webb is a markedly pleasant 28 year old woman who is currently 13 weeks , whopresents with left sided flank pain, nausea, vomiting, fever, and hematuria, and is found to have sepsis due to UTI and obstructive left nephrolithiasis. Sepsis due to E faecalis UTI and obstructive left nephrolithiasis: Sepsis(lactic acidosis, leukocytosis, tachycardia, fever) As above, patient is currently approximately 13 weeks by scan done on 07/12/2024. Patient now presented for evaluation of acute left-sided flank pain, nausea, vomiting, fever and hematuria. Patient was found to be febrile, tachycardic, fortunately no hypotension. Patient had acute leukocytosis to 18K. UA showed pyuria and hematuria CT abdomen pelvis completed showing 4 mm left stone at the UPJ causing mild hydronephrosis COVID, influenza and RSV came back negative. On presentation, patient did not have any signs and symptoms of severe sepsis or septic shock --Patient has been admitted for further evaluation and management. --Her symptoms on admission were persistent with sepsis(leukocytosis, tachycardia, tachypnea) secondary to UTI and obstructive left nephrolithiasis --On admission, case was discussed with IR --Highly appreciate urgent left nephrostomy tube placement at midnight by interventional radiology. --IR recommending tube placement to gravity for drain, sample sent for culture -- Patient was started on aggressive hydration with normal saline at 125 mL/h due to significant tachycardia, persistent fever and chills, fluids rate was later reduced and stopped this AM 07/17/24 -- Tachycardia is starting to improve her pulse is 99 today, will decrease IV fluids to 75 mL/h butwill continue for next 24 hours due to significant ongoing infection. -- Unfortunately, no blood cultures available from admission, elaina 1 set of blood culture due to concern for sepsis ( so far negative ) -- Lactic acid repeated every 4 hours x 2, repeat lactic acid has improved -- Urine culture from outside facility and from admission growing Enterococcus faecalis more than 100,000 colonies, considering patient and history of penicillin allergy, consulted infectious disease if ceftriaxone should be changed to ampicillin and what would be the best antibiotic planfor discharge as patient still has nephrostomy tube -- ID recommending to continue Ceftriaxone till sensitivity is back -- Continue ceftriaxone 2 g IV every 24 hours currently. -- Urology has been consulted, recommending patient to strain urine and sent home with a strainer upon discharge, have signed off now -- If stone caught in a strainer, refer to IR for clamping trial/possible tube removal prior to completion of -- Otherwise patient might need to continue percutaneous nephrostomy tube until delivered and repeat imaging -- Started patient on Flomax which seems to be safe during per ACADEMIC ADVISEMENT DIRECTOR on 07/16/24 -- Plan to give patient follow up with IR and urology on discharge 13 weeks gestational : Iron deficiency anemia : Most likely secondary to associated Iron came back low with low iron saturation index, -- ACADEMIC ADVISEMENT DIRECTOR he consulted on admission for further evaluation and comanagement along with review of safety profile of all the medications including Tylenol, Zofran, narcotics, ceftriaxone and Flomax -- Appreciate their input, okay with current medications also okay with the starting patient on bowel regimen for ongoing constipation -- Ultrasound OB less than 14 weeks completed showing single living intrauterine gestation, tachycardia with heart rate ranging from 192-207 bpm -- Will give patient IV Venofer 300 mg for 2 doses , as patient is suffering from severe constipation and told me that oral iron makes her more constipated Constipation: -- Patient has been getting MiraLAX daily. -- Has also been started on senna docusate 2 tablets p.o. twice daily -- PRN milk of magnesia as needed Acute hyponatremia: Resolved most likely secondary to hypovolemia associated with sepsis -- Sodium is improved to 134 Diet: Regular Diet Adult DVT Prophylaxis: Pneumatic Compression Devices and Ambulate every shift Salgado Catheter: Not present Lines: None Cardiac Monitoring: None Code Status: Full Code Clinically Significant Risk Factors Disposition Plan Medically Ready for Discharge: Anticipated Tomorrow Karey Gonzalez MD Hospitalist Service [facility] Securely message with [employer] (more info) Text page via [facility] Paging/Directory Interval History Patient was seen and examined, sister also present at bedside. Patient is feeling much better her headache is improved thinking that it might be secondary to caffeine withdrawal. Discussed with patient regarding continuing to use urine strainer. Patient has been tolerating Flomax well. Leukocytosis has improved. We discussed about giving her IV Venofer. She is aware that infectious disease has been following for antibiotic recommendations. We also discussed about discontinuing telemetry and IV fluids. Her constipation has resolved now. Physical Exam Vital Signs: Temp: 97.7 ??F (36.5 ??C) Temp src: Oral BP: 105/72 Pulse: 97 Resp: 18 SpO2: 98 % O2 Device: None (Room air) Weight: 0 lbs 0 oz Physical Exam Vitals and nursing note reviewed. Constitutional: Appearance: She is well-developed. HENT: Head: Normocephalic and atraumatic. Eyes: Conjunctiva/sclera: Conjunctivae normal. Pupils: Pupils are equal, round, and reactive to light. Neck: Thyroid: No thyromegaly. Cardiovascular: Rate and Rhythm: Normal rate and regular rhythm. Heart sounds: Normal heart sounds. No murmur heard. Pulmonary: Effort: Pulmonary effort is normal. No respiratory distress. Breath sounds: Normal breath sounds. No wheezing. Abdominal: General: Bowel sounds are normal. Palpations: Abdomen is soft. Tenderness: There is no abdominal tenderness. There is no guarding or rebound. Musculoskeletal: General: No deformity. Normal range of motion. Cervical back: Normal range of motion and neck supple. Skin: General: Skin is warm and dry. Comments: Left-sided nephrostomy tube in place Neurological: Mental Status: She is alert and oriented to person, place, and time. Psychiatric: Behavior: Behavior normal. Medical Decision Making 45 MINUTES SPENT BY ME on the date of service doing chart review, history, exam, documentation & further activities per the note. Data I have personally reviewed the following data over the past 24 hrs: 12.0 (H) \ 9.8 (L) / 249 N/A N/A N/A / N/A N/A N/A N/A \ Imaging results reviewed over the past 24 hrs: No results found for this or any previous visit (from the past 24 hours). Recent Labs Lab 07/17/24 0741 07/16/24 0801 07/15/24 0756 07/15/24 0600 WBC 12.0* 19.9* -- 18.7* HGB 9.8* 10.2* -- 10.1* MCV 86 87 -- 87 PLT 249 208 -- 211 NA -- 137 134* -- POTASSIUM -- 3.5 3.3* -- CHLORIDE -- 105 102 -- CO2 -- 18* 17* -- BUN -- 4.6* 4.5* -- CR -- 0.45* 0.59 -- ANIONGAP -- 14 15 -- MAGDI -- 8.5* 8.2* -- GLC -- 86 179* -- ALBUMIN -- -- 3.6 -- PROTTOTAL -- -- 6.8 -- BILITOTAL -- -- 0.3 -- ALKPHOS -- -- 77 -- ALT -- -- 11 -- AST -- -- 20 -- IC POLICY ANALYST * Jackeline Shaffer RN - 07/16/2024 6:41 PM CST Status: Patient admitted on 07/14 with left sided flank pain, nausea, vomiting, fever, and hematuria, and is found to have sepsis due to UTI and obstructive left nephrolithiasis. POD#2 L PNT placement. Patient 13 weeks Vitals: VSS Tele: Sinus rhythm Neuros: Intact IV: PIV infusing NS at 75mL/hr Labs/Electrolytes: WBC 19.9 Resp/trach: Lung sounds clear throughout Diet: Regular Bowel status: No BM for 5 days, BS+, passing flatus, Senna and Miralax given, patient had small andlarge BM : Voiding spontaneously and also throughout PNT with clear yellow urine in nephrostomy bag Skin: Left flank PNT site, CDI Pain: Patient c/o left flank pain and headache, relief with Tylenol, ice packs and aroma therapy Activity: Independent Social: Cooperative with cares, sister at bedside, supportive with cares, family at bedside this evening, attentive to patient Plan: Discharge home when medically stable, continue to monitor and follow POC IC POLICY ANALYST * Janet Vidal PA-C - 07/16/2024 8:45 AM CST [facility] Urology Progress Note Interval History Feeling much better today PCN outputs clear/yellow Cultures pending. WBC up to 19.9 today, afebrile. Assessment & Plan 28F, 13wks , admitted with fevers and concern for sepsis, CT with a 4mm left distal ureteral calculus (lower pole renal calculus also present); s/p IR placement of left PCN on 07/15 Plan: - Continue to strain urine (important to strain ALL urine), send home with strainer upon discharge - Plan for discharge with PCN with plans for exchange q 6 weeks. If stone caught in strainer, referto IR for clamping trial / possible tube removal prior to completion of . Otherwise may need to continue PCN until delivered and repeat imaging. - Follow cultures, abx per primary Urology will sign off for now. Please call with any questions or concerns. Janet Vidal PA-C [facility] Pager: [phone] Office: [phone] OBJECTIVE: BP 111/76 (BP Location: Left arm) Pulse 88 Temp 97.8 ??F (36.6 ??C) (Oral) Resp 18 SpO2 98% Intake/Output Summary (Last 24 hours) at 07/16/2024 0845 Last data filed at 07/16/2024 0552 Gross per 24 hour Intake 3053 ml Output 3900 ml Net -847 ml General appearance shows no deformaties and good grooming in no acute distress. HEAD, EARS, NOSE, MOUTH, AND THROAT: atraumatic, normocephalic CARDIAC: skin well perfused RESPIRATORY: breathing unlabored : left PCN draining clear yellow urine SKIN/HAIR/NAILS: no visible rashes NEUROLOGIC: no focal deficits PSYCHIATRIC: Speech, mood, and affect normal Janet Vidal PA-C [facility] Pager: [phone] Office: [phone] IC POLICY ANALYST * Karey Gonzalez MD - 07/16/2024 8:21 AM CST [facility] Medicine Progress Note - Hospitalist Service Date of Admission: 07/14/2024 Assessment & Plan Dash Webb is a markedly pleasant 28 year old woman who is currently 13 weeks , whopresents with left sided flank pain, nausea, vomiting, fever, and hematuria, and is found to have sepsis due to UTI and obstructive left nephrolithiasis. Sepsis due to E faecalis UTI and obstructive left nephrolithiasis: Sepsis(lactic acidosis, leukocytosis, tachycardia, fever) As above, patient is currently approximately 13 weeks by scan done on 07/12/2024. Patient now presented for evaluation of acute left-sided flank pain, nausea, vomiting, fever and hematuria. Patient was found to be febrile, tachycardic, fortunately no hypotension. Patient had acute leukocytosis to 18K. UA showed pyuria and hematuria CT abdomen pelvis completed showing 4 mm left stone at the UPJ causing mild hydronephrosis COVID, influenza and RSV came back negative. On presentation, patient did not have any signs and symptoms of severe sepsis or septic shock --Patient has been admitted for further evaluation and management. --Her symptoms are persistent with sepsis(leukocytosis, tachycardia, tachypnea) secondary to UTI and obstructive left nephrolithiasis --On admission, case was discussed with IR --Highly appreciate urgent left nephrostomy tube placement around midnight by interventional radiology. --IR recommending tube placement to gravity for drain, sample sent for culture -- Patient was started on aggressive hydration with normal saline at 125 mL/h due to significant tachycardia, persistent fever and chills. -- Tachycardia is starting to improve her pulse is 99 today, will decrease IV fluids to 75 mL/h butwill continue for next 24 hours due to significant ongoing infection. --Unfortunately, no blood cultures available from admission, will draw 1 set of blood culture now due to concern for sepsis. --Lactic acid repeat every 4 hours x 2, repeat lactic acid has improved --Blood cultures are showing no growth -- Urine culture from outside facility growing Enterococcus faecalis more than 100,000 colonies, centering patient and history of penicillin allergy, will consult infectious disease if ceftriaxone should be changed to ampicillin and what would be the best antibiotic plan for discharge as patient still has nephrostomy tube -- Continue ceftriaxone 2 g IV every 24 hours currently. -- Urology has been consulted, recommending patient to strain urine and sent home with a strainer upon discharge. -- If stone caught in a strainer, refer to IR for clamping trial/possible tube removal prior to completion of -- Otherwise patient might need to continue percutaneous nephrostomy tube until delivered and repeat imaging -- Will start patient on Flomax which seems to be safe during per ACADEMIC ADVISEMENT DIRECTOR -- Urology has signed off now. 13 weeks stational : -- ACADEMIC ADVISEMENT DIRECTOR he consulted on admission for further evaluation and comanagement along with review of safety profile of all the medications including Tylenol, Zofran, narcotics, ceftriaxone and Flomax -- Appreciate their input, okay with current medications also okay with the starting patient on bowel regimen for ongoing constipation -- Ultrasound OB less than 14 weeks completed showing single living intrauterine gestation, tachycardia with heart rate ranging from 192-207 bpm Constipation: -- Patient has been getting MiraLAX daily. -- Has also been started on senna docusate 2 tablets p.o. twice daily -- Will also order milk of magnesia as needed Acute hyponatremia: Resolved most likely secondary to hypovolemia associated with sepsis -- Sodium is improved to 134 this morning from 127. -- Recheck BMP and CBC tomorrow morning as above. Anemia: Most likely secondary to associated -- Will check iron profile with vitamin B12 and folic acid with a.m. labs. Diet: Regular Diet Adult DVT Prophylaxis: Pneumatic Compression Devices and Ambulate every shift Salgado Catheter: Not present Lines: None Cardiac Monitoring: ACTIVE order. Indication: Tachyarrhythmias, acute (48 hours) Code Status: Full Code Clinically Significant Risk Factors # Hypokalemia: Lowest K = 3.3 mmol/L in last 2 days, will replace as needed # Hyponatremia: Lowest Na = 134 mmol/L in last 2 days, will monitor as appropriate # Hypocalcemia: Lowest Ca = 8.2 mg/dL in last 2 days, will monitor and replace as appropriate Disposition Plan Medically Ready for Discharge: Anticipated in 2-4 Days Karey Gonzalez MD Hospitalist Service [facility] Securely message with [employer] (more info) Text page via [facility] Paging/Directory Interval History Patient was seen and examined, sister also present at bedside. Patient is feeling much better as compared to yesterday still have some headache but her palpitations have improved she does not have any further lightheadedness. Discussed with patient regarding urine culture results and plan for infectious disease consultation. We also discussed about urology recommendations regarding continuing to use urine strainer. We alsodiscussed about restarting patient on Flomax. Reviewed ultrasound results with patient. Patient is hoping that she would be able to pass the stone and hopeful that she does not have to keep percutaneous nephrostomy tube throughout her . Awaiting bowel movement, taking stool softeners. Physical Exam Vital Signs: Temp: 97.8 ??F (36.6 ??C) Temp src: Oral BP: 111/76 Pulse: 88 Resp: 18 SpO2: 98 % O2 Device: None (Room air) Weight: 0 lbs 0 oz Physical Exam Vitals and nursing note reviewed. Constitutional: Appearance: She is well-developed. HENT: Head: Normocephalic and atraumatic. Eyes: Conjunctiva/sclera: Conjunctivae normal. Pupils: Pupils are equal, round, and reactive to light. Neck: Thyroid: No thyromegaly. Cardiovascular: Rate and Rhythm: Normal rate and regular rhythm. Heart sounds: Normal heart sounds. No murmur heard. Pulmonary: Effort: Pulmonary effort is normal. No respiratory distress. Breath sounds: Normal breath sounds. No wheezing. Abdominal: General: Bowel sounds are normal. Palpations: Abdomen is soft. Tenderness: There is no abdominal tenderness. There is no guarding or rebound. Musculoskeletal: General: No deformity. Normal range of motion. Cervical back: Normal range of motion and neck supple. Skin: General: Skin is warm and dry. Comments: Left-sided nephrostomy tube in place Neurological: Mental Status: She is alert and oriented to person, place, and time. Psychiatric: Behavior: Behavior normal. Medical Decision Making 52 MINUTES SPENT BY ME on the date of service doing chart review, history, exam, documentation & further activities per the note. Data I have personally reviewed the following data over the past 24 hrs: 19.9 (H) \ 10.2 (L) / 208 N/A N/A N/A / N/A N/A N/A N/A \ ALT: N/A AST: N/A AP: N/A TBILI: N/A ALB: N/A TOT PROTEIN: N/A LIPASE: N/A Procal: N/A CRP: N/A Lactic Acid: 0.9 Ferritin: 166 % Retic: N/A LDH: N/A Imaging results reviewed over the past 24 hrs: Recent Results (from the past 24 hours) US OB < 14 Weeks Single Narrative US OB < 14 WEEKS SINGLE-TRANSABDOMINAL 07/15/2024 1:28 PM CLINICAL HISTORY: 13 weeks , admitted with infected renal stone and sepsis TECHNIQUE: Transabdominal scans were performed. COMPARISON: None. FINDINGS: UTERUS: Single normal appearing intrauterine gestation sac. CRL: measures 73 mm, equals 13 weeks 3 days. HEART RATE: 192-207 bpm. AMNIOTIC FLUID: Normal. PLACENTA: Posterior. RIGHT OVARY: Normal. LEFT OVARY: Obscured by bowel gas. Impression IMPRESSION: 1. Single living intrauterine gestation. 2. tachycardia with heart rate ranging from 192-207 bpm. MARIA A MARCOS MD SYSTEM ID: [id number] Recent Labs Lab 11/05/24 0801 07/15/24 0756 07/15/24 0600 WBC 19.9* -- 18.7* HGB 10.2* -- 10.1* MCV 87 -- 87 PLT 208 -- 211 NA -- 134* -- POTASSIUM -- 3.3* -- CHLORIDE -- 102 -- CO2 -- 17* -- BUN -- 4.5* -- CR -- 0.59 -- ANIONGAP -- 15 -- MAGDI -- 8.2* -- GLC -- 179* -- ALBUMIN -- 3.6 -- PROTTOTAL -- 6.8 -- BILITOTAL -- 0.3 -- ALKPHOS -- 77 -- ALT -- 11 -- AST -- 20 -- IC POLICY ANALYST IC POLICY ANALYST * Gabriella Meza RN - 07/15/2024 7:40 PM CST RN to bedside to perform FHR via doppler. FHR 170bpm. IC POLICY ANALYST * Fahad Santos PA-C - 07/15/2024 3:28 PM CST Images from the original note were not included. Interventional Radiology - Progress Note Inpatient - [facility] 07/15/2024 S: Complains of pain at Lt PCN site placed overnight for obstructive stone w sepsis, hydronephrosis. No other complaints at this time. O: BP 117/61 (BP Location: Right arm) Pulse 119 Temp (!) 100.5 ??F (38.1 ??C) (Oral) Resp 17 SpO2 97% General: Stable. In no acute distress. Abd: Left flank PCN dressing c/d/I, clear yellow urine in collection bag w/o sediment Labs (Last four results) CMP Recent Labs Lab 07/15/24 0756 POTASSIUM 3.3* GLC 179* BUN 4.5* CR 0.59 GFRESTIMATED >90 CBC Recent Labs Lab 07/15/24 0600 WBC 18.7* RBC 3.24* HGB 10.1* HCT 28.2* PLT 211 INRNo lab results found in last 7 days. A: Left ureteral stone w hydronephrosis, sepsis, s/p left PCN placement 13 wks gestation P: -Exchange PCN in 6 weeks. Will schedule. -May need shorter intervals as gestational age increases and if increasing sediment develops -Patient instructed to contact IR if developing sediment in urine collection bag, could add stopcock so drain could be flushed -Agree w urology plan for clamping trial if stone passes. Please refer back to IR in this scenario -Discharge instructions and contact information placed -IR will follow peripherally Fahad Santos PA-C Interventional Radiology *[id number] Total Time: 25 minutes IC POLICY ANALYST * Karey Gonzalez MD - 07/15/2024 7:59 AM CST [facility] Medicine Progress Note - Hospitalist Service Date of Admission: 07/14/2024 Assessment & Plan Dash Webb is a markedly pleasant 28 year old woman who is currently 13 weeks , whopresents with left sided flank pain, nausea, vomiting, fever, and hematuria, and is found to have sepsis due to UTI and obstructive left nephrolithiasis. Sepsis due to UTI and obstructive left nephrolithiasis: Sepsis(lactic acidosis, leukocytosis, tachycardia, fever) As above, patient is currently approximately 13 weeks by scan done on 07/12/2024. Patient now presented for evaluation of acute left-sided flank pain, nausea, vomiting, fever and hematuria. Patient was found to be febrile, tachycardic, fortunately no hypotension. Patient had acute leukocytosis to 18K. UA showed pyuria and hematuria CT abdomen pelvis completed showing 4 mm left stone at the UPJ causing mild hydronephrosis COVID, influenza and RSV came back negative. On presentation, patient did not have any signs and symptoms of severe sepsis or septic shock --Patient has been admitted for further evaluation and management. --Her symptoms are persistent with sepsis(leukocytosis, tachycardia, tachypnea) secondary to UTI and obstructive left nephrolithiasis --On admission, case was discussed with IR --Highly appreciate urgent left nephrostomy tube placement around midnight by interventional radiology. --IR recommending tube placement to gravity for drain, sample sent for culture --Patient care was assumed this morning, patient was seen and examined --Continue aggressive hydration today with normal saline at 125 mL/h due to persistent fever, chills and tachycardia --Unfortunately, no blood cultures available from admission, will draw 1 set of blood culture now due to concern for sepsis. --Repeat CBC in AM. --Lactic acid repeat every 4 hours x 2, repeat lactic acid has improved --Continue ceftriaxone 2 g IV every 24 hours considering concern for sepsis. --Will consult urology, highly appreciate their input for further management of nephrolithiasis. --Emotional support was provided to patient, plan of care was also discussed with who was present at bedside. 13 weeks : Noted -- ACADEMIC ADVISEMENT DIRECTOR he consulted on admission for further evaluation and comanagement along with review of safety profile of all the medications including Tylenol, Zofran, narcotics, ceftriaxone and Flomax --Discussed the case with [employer] this morning regarding reason for consultation. ( As above and as per HPI by ) -- Recommended OB ultrasound, will place orders -- Recommending Pharm.D. consultation for medication evaluation -- Unsure if OB is planning to come and evaluate patient in person, discussed with patient regarding their recommendations which were discussed with me on phone. Acute hyponatremia: Most likely secondary to hypovolemia associated with sepsis -- Sodium is improved to 134 this morning from 127. -- Recheck BMP and CBC tomorrow morning as above. Anemia: Most likely secondary to associated -- Will check iron profile with vitamin B12 and folic acid with a.m. labs. Diet: Regular Diet Adult DVT Prophylaxis: Pneumatic Compression Devices and Ambulate every shift Salgado Catheter: Not present Lines: None Cardiac Monitoring: ACTIVE order. Indication: Tachyarrhythmias, acute (48 hours) Code Status: Full Code Clinically Significant Risk Factors Present on Admission # Hypokalemia: Lowest K = 3.3 mmol/L in last 2 days, will replace as needed # Hyponatremia: Lowest Na = 134 mmol/L in last 2 days, will monitor as appropriate # Hypocalcemia: Lowest Ca = 8.2 mg/dL in last 2 days, will monitor and replace as appropriate # Anemia: based on hgb <11 Disposition Plan Medically Ready for Discharge: Anticipated in 2-4 Days Karey Gonzalez MD Hospitalist Service [facility] Securely message with [employer] (more info) Text page via [facility] Paging/Directory Interval History Patient care was assumed this morning, patient was seen and examined. also present at bedside. Patient is feeling slightly better still has some discomfort at the nephrostomy site. Was wondering about OB evaluation, discussed with her regarding my discussion over phone and recommendations for ultrasound. Discussed with patient regarding tachycardia which is mostly associated with sepsis at this point and plan for continuing patient on IV fluids and IV antibiotics. Patient showed understanding discussed with patient regarding urology evaluation also. Plan of care was also discussed in detail with bedside nursing Physical Exam Vital Signs: Temp: (!) 100.5 ??F (38.1 ??C) Temp src: Oral BP: 117/61 Pulse: 119 Resp: 17 SpO2: 97 % O2 Device: None (Room air) Weight: 0 lbs 0 oz Physical Exam Vitals and nursing note reviewed. Constitutional: Appearance: She is well-developed. HENT: Head: Normocephalic and atraumatic. Eyes: Conjunctiva/sclera: Conjunctivae normal. Pupils: Pupils are equal, round, and reactive to light. Neck: Thyroid: No thyromegaly. Cardiovascular: Rate and Rhythm: Normal rate and regular rhythm. Heart sounds: Normal heart sounds. No murmur heard. Pulmonary: Effort: Pulmonary effort is normal. No respiratory distress. Breath sounds: Normal breath sounds. No wheezing. Abdominal: General: Bowel sounds are normal. Palpations: Abdomen is soft. Tenderness: There is no abdominal tenderness. There is no guarding or rebound. Musculoskeletal: General: No deformity. Normal range of motion. Cervical back: Normal range of motion and neck supple. Skin: General: Skin is warm and dry. Comments: Left-sided nephrostomy tube in place Neurological: Mental Status: She is alert and oriented to person, place, and time. Psychiatric: Behavior: Behavior normal. Medical Decision Making 50 MINUTES SPENT BY ME on the date of service doing chart review, history, exam, documentation & further activities per the note. Data I have personally reviewed the following data over the past 24 hrs: 18.7 (H) \ 10.1 (L) / 211 134 (L) 102 4.5 (L) / 179 (H) 3.3 (L) 17 (L) 0.59 \ ALT: 11 AST: 20 AP: 77 TBILI: 0.3 ALB: 3.6 TOT PROTEIN: 6.8 LIPASE: N/A Procal: 0.42 CRP: N/A Lactic Acid: 0.9 Imaging results reviewed over the past 24 hrs: Recent Results (from the past 24 hours) IR Nephrostomy Tube Placement Left Narrative DATE: 07/15/2024 PROCEDURE: ANTEGRADE PYELOGRAM AND PERCUTANEOUS NEPHROSTOMY 1. Ultrasound-guided access of the left intrarenal collecting system. A permanent image was stored. 2. Antegrade pyelography. 3. Percutaneous nephrostomy tube placement. 4. Moderate sedation. INTERVENTIONAL RADIOLOGIST: Savannah Chang MD INDICATION: 28-year-old female noted to have [...] observer. The physician spent 15 minutes of [id number] sedation time with the patient. CONTRAST: 10 [...] sterile drape. Prior to the procedure, the powerplant operator and engineer third assistant performed hand hygiene and wore hat, mask, sterile gown, and sterile gloves during the entire procedure. PROCEDURE: Using real-time sonographic guidance, a 22 gauge needle was inserted into the collecting system, and an antegrade pyelogram was performed. An AccuStick set was then placed, and a 10 Anguillan nephrostomy tube was placed in the renal pelvis. A post placement nephrostogram was performed. The catheter was sutured to the skin and placed to gravity bag drainage. FINDINGS: Ultrasound imaging demonstrates durs-ar-aitzsazk hydronephrosis. Post nephrostomy tube placement imaging demonstrates good positioning of the tube within the renal pelvis. Impression IMPRESSION: 1. Successful 10 Anguillan left nephrostomy tube placement. PLAN: Nephrostomy tube to gravity drain. SAVANNAH CHANG MD Recent Labs Lab 07/15/24 0756 07/15/24 0600 WBC -- 18.7* HGB -- 10.1* MCV -- 87 PLT -- 211 NA 134* -- POTASSIUM 3.3* -- CHLORIDE 102 -- CO2 17* -- BUN 4.5* -- CR 0.59 -- ANIONGAP 15 -- MAGDI 8.2* -- GLC 179* -- ALBUMIN 3.6 -- PROTTOTAL 6.8 -- BILITOTAL 0.3 -- ALKPHOS 77 -- ALT 11 -- AST 20 -- IC POLICY ANALYST * Isaiah Davis RN - 07/15/2024 3:39 AM CST Notification Notified Person: Notified Person Name: Eric Camacho Notification Date/Time: 07/15/2024 @0340 Notification Interaction: vocera Purpose of Notification: abnormal VSS: fever (102F), Tachycardic Orders Received: No orders Comments: IC POLICY ANALYST * Abeba Cobb RN - 07/14/2024 11:28 PM CST Pt arrived and settled in room. VSS on RA ex Tachycardic. Up independently. Brought down to IR for Meth tube placement. IC POLICY ANALYST documented in this encounter H&P Notes * Parveen Kwok MD - 07/14/2024 9:33 PM CST [facility] History and Physical Hospitalist Date of Admission: 07/14/2024 Date of Service (when I saw the patient): 07/14/24 ASSESSMENT Dash Webb is a markedly pleasant 28 year old woman who is currently 13 weeks , whopresents with left sided flank pain, nausea, vomiting, fever, and hematuria, and is found to have sepsis due to UTI and obstructive left nephrolithiasis. PLAN Sepsis due to UTI and obstructive left nephrolithiasis: Of note, Ms. Webb is currently approximately 13 weeks by scan done 07/12/2024. She presents now for evaluation of acute left sided flank pain, nausea, vomiting, fever, and hematuria In the ED, she has fever and tachycardia. She is not hypoxic or hypotensive. She has acute leukocytosis to 18 k. UA shows pyuria and hematuria. CT of abdomen and pelvis reportedly shows a 4 mm left stone at the UPJ causing mild hydronephrosis. COVID, Influenza, and RSV tests are negative. Overall, her symptoms are consistent with sepsis due to UTI and obstructive left nephrolithiasis. Christy discussed the case tonight with Dr. Chang of IR whose guidance is appreciated. Contemplation of nephrostomy tube placement to be done potentially tonight. -- Inpatient. NPO. IR and [facility] consulted. Empiric antibiotics ordered: Ceftriaxone. Follow upcultures. IV Fluid with 125 ml/hour NS ordered. -- Tylenol, Oxycodone, IV Dilaudid as needed for pain. Anti-emetics as needed. -- Repeat CBC and BMP in AM. SW consulted for disposition planning. 13 weeks : Noted. [employer] consulted for further evaluation and co- management, and review of safety profile of medications such as Tylenol, Zofran, narcotics, Ceftriaxone, and Flomax Acute hyponatremia: Mild at 127. Suspect related to hypovolemia. Repeat BMP in AM after IVF given overnight I have spent 75 minutes on the date of service doing chart review, history, examination, documentation, and further activities per the note. Chief Complaint Left flank pain History is obtained from the patient and the ED paper record History of Present Illness Dash Webb is a markedly pleasant 28 year old woman who presents with acute onset of sharp pain in the left side that began on 07/11/2024 while at rest. It has been progressive since onset, associated with hematuria and nausea, as well as constipation, not relieved with laxative. Today she developed nausea and vomiting as well as fever and dysuria. [facility] came [facility] ED todayfor further evaluation. She is currently. She denies prior history of kidney stones. She says she feels better now after getting analgesics and IV fluid in the ED. She otherwise denies otheracute complaints. In the ED, T 101.3, HR 141, BP 131/87, sats 97% CBC showed WBC 18.5, HGB 12.6, PLT 271. BMP showed Na 127, K 3.6, Cl 95, CO2 20, BUN 5, Cr 0.8. Glucose was 107 and Ca was 9.5. Hepatic panel showed AST 22, ALT 13, APhos 73, Tprot 8.0, Alb 4.5 UA showed greater than 100 WBC and 10-25 RBC. COVID, Influenza, and RSV tests were negative. CT of abdomen and pelvis ws IV contrast reportedly showed a 4 mm left stone at the UPJ causing mildhydronephrosis. An additional very small non-obstructing left sided stone was also noted. The case was discussed with IR and Urology in the ED and she was given Ceftriaxone and transferred here. PHYSICAL EXAM Constitutional: Alert and oriented to person, place and time; no apparent distress Respiratory: lungs clear to auscultation bilaterally Cardiovascular: regular S1 S2 GI: abdomen soft non tender non distended bowel sounds positive Musculoskeletal: no clubbing, cyanosis or edema Neurologic: extra-ocular muscles intact; moves all four extremities Psychiatric: appropriate affect, insight and judgment DVT Prophylaxis: Pneumatic Compression Devices Code Status: Full Code Medically Ready for Discharge: Anticipated in 2-4 Days Parveen Kwok MD, MD Past Medical History I have reviewed this patient's medical history and updated it with pertinent information if needed. Past Medical History: Diagnosis Date Acne Concussion 12/10/2012 Past Surgical History I have reviewed this patient's surgical history and updated it with pertinent information if needed. Past Surgical History: Procedure Laterality Date ARTHROSCOPIC RECONSTRUCTION ANTERIOR AND POSTERIOR CRUCIATE LIGAMENT, COMBINED Left COLONOSCOPY N/A 03/30/2017 Procedure: COMBINED COLONOSCOPY, SINGLE OR MULTIPLE BIOPSY/POLYPECTOMY BY BIOPSY;; Surgeon: Kodi Garnica MD; Location: [facility] OR COLONOSCOPY WITH CO2 INSUFFLATION N/A 03/30/2017 Procedure: COLONOSCOPY WITH CO2 INSUFFLATION; Diarrhea, unspecified type BMI: 23.35 Ins: Medicaid Pharmacy: [facility] Referring: Dr. Castaneda; Surgeon: Kodi Garnica MD; Location: [facility] OR DILATION AND CURETTAGE SUCTION N/A 04/20/2023 Procedure: SUCTION DILATION AND CURETTAGE UNDER ULTRASOUND GUIDANCE; Surgeon: Gill Boss MD; Location: [facility] OR ENT SURGERY tonsils Prior to Admission Medications Prior to Admission Medications Prescriptions Last Dose Informant Patient Reported? Taking? cholecalciferol (VITAMIN D) 1000 UNIT tablet No No Sig: Take 2 tablets (2,000 Units) by mouth daily ibuprofen (ADVIL/MOTRIN) 600 MG tablet No No Sig: Take 1 tablet (600 mg) by mouth every 6 hours as needed for other (mild and/or inflammatory pain) Facility-Administered Medications: None Allergies Allergies Allergen Reactions Penicillins Hives Social History I have reviewed this patient's social history and updated it with pertinent information if needed. Dash Webb reports that she has never smoked. She has never used smokeless tobacco. She reports that she does not drink alcohol and does not use drugs. Family History Family history assessed and, except as above, is non-contributory. Family History Problem Relation Age of Onset Cancer Mother cervical Hypertension Mother Hypertension Father Breast Cancer Other Review of Systems The 10 point Review of Systems is negative other than noted in the HPI or here. Primary Care Physician Deedee Castaneda Data Labs Ordered and Resulted from Time of ED Arrival to Time of ED Departure - No data to display Data reviewed today: I personally reviewed no images or EKG's today. IC POLICY ANALYST IC POLICY ANALYST documented in this encounter Procedure Notes * Savannah Chang MD - 07/15/2024 12:14 AM CSTAssociated Order(s): Imaging Procedure Note [facility] Procedure: Imaging Procedure Note Date/Time: 07/15/2024 12:14 AM Performed by: Savannah Chang MD Authorized by: Savannah Chang MD IR Fellow Physician: Pre Procedure Diagnosis: L renal stone Post Procedure Diagnosis: Same UNIVERSAL PROTOCOL Site Marked: Yes Prior Images Obtained and Reviewed: Yes Required items: Required blood products, implants, devices and special equipment available Patient identity confirmed: Arm band, provided demographic data, hospital- assigned identification number and verbally with patient Patient was reevaluated immediately before administering moderate or deep sedation or anesthesia Confirmation Checklist: Correct equipment/implants were available, procedure was appropriate and matched the consent or emergent situation, relevant allergies and patient's identity using two indicators Time out: Immediately prior to the procedure a time out was called [place] Protocol: the Joint Commission [place] Protocol was followed Preparation: Patient was prepped and draped in usual sterile fashion ANESTHESIA Anesthesia: Local infiltration Local Anesthetic: Lidocaine 1% without epinephrine SEDATION Patient Sedated: No See dictated procedure note for full details. Findings: Successful 10F left neph tube placement, to gravity drain, sample sent for culture Specimens: none Procedural Complications: None Condition: Stable PROCEDURE Patient Tolerance: Patient tolerated the procedure well with no immediate complications Length of time physician/provider present for 1:1 monitoring during sedation: 0 min IC POLICY ANALYST documented in this encounter Consult Notes * Betina Hamilton PA-C - 07/16/2024 12:05 PM CSTAssociated Order(s): INFECTIOUS DISEASES IP CONSULT [facility] Infectious Disease Consultation Date of Admission: 07/14/2024 Date of Consult (When I saw the patient): 07/16/24 Assessment & Plan Dash ELENI Webb is a 28 year old female who was admitted on 07/14/2024. Impression: 28 year old relatively healthy female who is 13 weeks recently treated for UTI now presenting with acute onset left flank pain, fever, n/v, and hematuria and found to have 4 mm left stone atthe UPJ causing mild hydronephrosis. -Urosepsis. Urine culture from outside hospital with >100K E. Faecalis, villarreal-sensitive. -Blood culture and urine culture from this admission pending. -S/p percutaneous nephrostomy tube 07/15/24. -Fevers trending down. -Allergy listed to PCN - hives as a child, but not sure. Recommendations: Continue Ceftriaxone for now. Following urine and blood cultures this admission. Final antibiotic recommendations to follow culture results and clinical course. Urology following / managing perc neph tube. Patient and plan discussed with Dr. Diaz. Betina Hamilton PA-C Reason for Consult Reason for consult: Asked to evaluate this patient for Enetrococcus Fecalis Infection in 13 weeks female with sepsis and nephrolithiasis , please evaluate antibiotics if Ceftriaxone should be switched to Ampicillin . Primary Care Physician Deedee Castaneda Chief Complaint Left sided flank pain, n/v, fever, and hematuria. History is obtained from the patient and medical records History of Present Illness Dash Webb is a 28 year old relatively healthy female who is 13 weeks . She was seen in Urgent Care on 06/11/24 at which time she had UTI symptoms and was given a prescription of Macrobid. On 07/11/24 she developed acute onset of sharp pain in the left side that began while at rest. It was associated with hematuria and nausea/vomiting, fever, and dysuria. She went to the [facility] ED where imaging showed a 4 mm left stone at the UPJ causing mild hydronephrosis, she had leukocytosis, and was febrile with tachycardia. She was transferred to [facility] where she underwent Nephrostomy tube placement 07/15/24. She was started on Ceftriaxone. Urine and blood cultures are pending. Past Medical History I have reviewed this patient's medical history and updated it with pertinent information if needed. Past Medical History: Diagnosis Date Acne Concussion 12/10/2012 Past Surgical History I have reviewed this patient's surgical history and updated it with pertinent information if needed. Past Surgical History: Procedure Laterality Date ARTHROSCOPIC RECONSTRUCTION ANTERIOR AND POSTERIOR CRUCIATE LIGAMENT, COMBINED Left COLONOSCOPY N/A 03/30/2017 Procedure: COMBINED COLONOSCOPY, SINGLE OR MULTIPLE BIOPSY/POLYPECTOMY BY BIOPSY;; Surgeon: Kodi Garnica MD; Location: [facility] OR COLONOSCOPY WITH CO2 INSUFFLATION N/A 03/30/2017 Procedure: COLONOSCOPY WITH CO2 INSUFFLATION; Diarrhea, unspecified type BMI: 23.35 Ins: Medicaid Pharmacy: [facility] Referring: Dr. Castaneda; Surgeon: Kodi Garnica MD; Location: [facility] OR DILATION AND CURETTAGE SUCTION N/A 04/20/2023 Procedure: SUCTION DILATION AND CURETTAGE UNDER ULTRASOUND GUIDANCE; Surgeon: Gill Boss MD; Location: [facility] OR ENT SURGERY tonsils IR NEPHROSTOMY TUBE PLACEMENT LEFT 07/15/2024 Prior to Admission Medications Prior to Admission Medications Prescriptions Last Dose Informant Patient Reported? Taking? HYDROcodone-acetaminophen (NORCO) 5-325 MG tablet 07/13/2024 at 2:00 PM Yes Yes Sig: Take 1 tablet by mouth every 4 hours as needed for pain. Vit-Fe Fumarate-FA ( PLUS) 27-1 MG TABS 07/13/2024 Yes Yes Sig: Take 1 tablet by mouth daily. acetaminophen (TYLENOL) 500 MG tablet Unknown Yes Yes Sig: Take 500-1,000 mg by mouth every 6 hours as needed for mild pain. ondansetron (ZOFRAN) 4 MG tablet 07/13/2024 Yes Yes Sig: Take 4 mg by mouth every 8 hours as needed for nausea or vomiting. tamsulosin (FLOMAX) 0.4 MG capsule 07/13/2024 Yes Yes Sig: Take 0.4 mg by mouth daily. Facility-Administered Medications: None Allergies Allergies Allergen Reactions Penicillins Hives Immunization History Immunization History Administered Date(s) Administered DTAP (<7y) 1997, 03/04/1998, 05/08/1998, 11/10/1998, 02/27/2003 DTaP/HepB/IPV 1997, 03/04/1998, 11/10/1998, 02/27/2003 HPV 09/26/2014, 02/23/2017 HPV9 05/08/2018 HepB 1997, 03/04/1998, 09/02/2009 MMR 11/10/1998, 02/27/2003 Meningococcal (Menomune??) 09/02/2009 Meningococcal ACWY (Menactra??) 10/28/2015 TD,PF 7+ (Tenivac) 09/02/2009 Varicella 09/02/2009, 09/26/2014 Social History I have reviewed this patient's social history and updated it with pertinent information if needed. Dash Webb reports that she has never smoked. She has never used smokeless tobacco. She reports that she does not drink alcohol and does not use drugs. Family History I have reviewed this patient's family history and updated it with pertinent information if needed. Family History Problem Relation Age of Onset Cancer Mother cervical Hypertension Mother Hypertension Father Breast Cancer Other Review of Systems The 10 point Review of Systems is negative Physical Exam Temp: 97.8 ??F (36.6 ??C) Temp src: Oral BP: 111/76 Pulse: 88 Resp: 18 SpO2: 98 % O2 Device: None (Room air) Vital Signs with Ranges Temp: [97.7 ??F (36.5 ??C)-99.6 ??F (37.6 ??C)] 97.8 ??F (36.6 ??C) Pulse: [88-128] 88 Resp: [17-18] 18 BP: (100-113)/(67-76) 111/76 SpO2: [97 %-98 %] 98 % 0 lbs 0 oz There is no height or weight on file to calculate BMI. GENERAL APPEARANCE: awake EYES: Eyes grossly normal to inspection NECK: no adenopathy RESP: lungs clear CV: regular rates and rhythm ABDOMEN: soft, nontender MS: extremities normal SKIN: no suspicious lesions or rashes. Perc neph tube with clear yellow urine. Data All laboratory data reviewed Component Latest Ref Rng 07/15/2024 6:00 AM 07/16/2024 8:01 AM WBC 4.0 - 11.0 10e3/uL 18.7 (H) 19.9 (H) RBC Count 3.80 - 5.20 10e6/uL 3.24 (L) 3.23 (L) Hemoglobin 11.7 - 15.7 g/dL 10.1 (L) 10.2 (L) Hematocrit 35.0 - 47.0 % 28.2 (L) 28.0 (L) MCV 78 - 100 fL 87 87 MCH 26.5 - 33.0 pg 31.2 31.6 MCHC 31.5 - 36.5 g/dL 35.8 36.4 RDW 10.0 - 15.0 % 12.0 12.4 Platelet Count 150 - 450 10e3/uL 211 208 % Neutrophils % 83 % Lymphocytes % 3 % Monocytes % 7 % Eosinophils % 6 % Basophils % 0 % Immature Granulocytes % 1 NRBCs per 100 WBC <1 /100 0 Absolute Neutrophils 1.6 - 8.3 10e3/uL 15.5 (H) Absolute Lymphocytes 0.8 - 5.3 10e3/uL 0.6 (L) Absolute Monocytes 0.0 - 1.3 10e3/uL 1.3 Absolute Eosinophils 0.0 - 0.7 10e3/uL 1.1 (H) Absolute Basophils 0.0 - 0.2 10e3/uL 0.0 Absolute Immature Granulocytes <=0.4 10e3/uL 0.1 Absolute NRBCs 10e3/uL 0.0 Component Latest Ref [facility] 07/15/2024 7:56 AM 07/16/2024 8:01 AM Sodium 135 - 145 mmol/L 134 (L) 137 Potassium 3.4 - 5.3 mmol/L 3.3 (L) 3.5 Chloride 98 - 107 mmol/L 102 105 Carbon Dioxide (CO2) 22 - 29 mmol/L 17 (L) 18 (L) Anion Gap 7 - 15 mmol/L 15 14 Urea Nitrogen 6.0 - 20.0 mg/dL 4.5 (L) 4.6 (L) Creatinine 0.51 - 0.95 mg/dL 0.59 0.45 (L) GFR Estimate >60 mL/min/1.73m2 >90 >90 Calcium 8.8 - 10.4 mg/dL 8.2 (L) 8.5 (L) Glucose 70 - 99 mg/dL 179 (H) 86 Component Latest Ref [facility] 07/15/2024 6:00 AM 07/15/2024 7:56 AM 07/15/2024 10:40 AM 07/15/2024 2:13 PM Protein Total 6.4 - 8.3 g/dL 6.8 Albumin 3.5 - 5.2 g/dL 3.6 Bilirubin Total <=1.2 mg/dL 0.3 Alkaline Phosphatase 40 - 150 U/L 77 AST 0 - 45 U/L 20 ALT 0 - 50 U/L 11 Bilirubin Direct 0.00 - 0.30 mg/dL <0.20 Lactic Acid 0.7 - 2.0 mmol/L 0.5 (L) 1.2 0.9 Procalcitonin <0.50 ng/mL 0.42 07/15/2024 1605 07/16/2024 0701 Blood Culture Hand, Left [[id number]] Blood from Hand, Left Preliminary result Component Value Culture No growth after 12 hours P 07/15/2024 0039 07/16/2024 0922 Urine Culture Aerobic Bacterial [[id number]] Urine, Midstream Preliminary result Component Value Culture Culture in progress P US OB < 14 WEEKS SINGLE-TRANSABDOMINAL 07/15/2024 1:28 PM CLINICAL HISTORY: 13 weeks , admitted with infected renal stone and sepsis TECHNIQUE: Transabdominal scans were performed. COMPARISON: None. FINDINGS: UTERUS: Single normal appearing intrauterine gestation sac. CRL: measures 73 mm, equals 13 weeks 3 days. HEART RATE: 192-207 bpm. AMNIOTIC FLUID: Normal. PLACENTA: Posterior. RIGHT OVARY: Normal. LEFT OVARY: Obscured by bowel gas. Impression: IMPRESSION: 1. Single living intrauterine gestation. 2. tachycardia with heart rate ranging from 192-207 bpm. Cosigned by Chip Diaz MD at 07/16/2024 3:43 PM PUBLIC POLICY ANALYST IC POLICY ANALYST IC POLICY ANALYST Associated attestation - Chip Diaz MD - 07/16/2024 3:43 PM PUBLIC POLICY ANALYST Physician Attestation I have reviewed and discussed with the advanced practice provider their history, physical and plan for Dash Webb. I did not participate in a shared visit; this is an advanced practice provider only visit. Chip Diaz MD Date of Service (when I saw the patient): I did not personally see this patient today. * Claudia Gerard MD - 07/15/2024 4:49 PM CSTAssociated Order(s): MASTER COASTAL WATERS IP CONSULT ACADEMIC ADVISEMENT DIRECTOR Consult Note Reason for Consult: 13 weeks , sepsis due to obstructive nephrolithiasis HPI: Dash Webb is a 28 year old at 13w4d by LMP c/w first trimester [facility] who was admitted as direct transfer from [facility] for obstructive nephrolithiasis. She was admitted with left flank pain, fever and hematuria. Found to have obstructive kidney stone.She underwent left nephrostomy tube placement last night. Currently on IV antibiotics. She remains tachycardic and intermittently febrile. Our team was consulted to help manage her early in coordination with other care teams. Her biggest concern is the safety of the medications/procedures she has gotten during as well as constipation. She has not had a bowel movement since Monday. Has been taking stool softenersbut has not tried anything else yet. hat cleaner Hx: Prior uncomplicated vaginal delivery at term 1.5 years ago care at [facility], last visit was Jun 18. She had a normal LMP with an ANNE MARIE January 16, 2025. She says her first OB ultrasound last month was normal and reassuring. She did not do genetic screening. Next appt is scheduled for this Monday but is now switched to virtual since she will likely still be inpatient. PMH: Past Medical History: Diagnosis Date Acne Concussion 12/10/2012 PSH: Past Surgical History: Procedure Laterality Date ARTHROSCOPIC RECONSTRUCTION ANTERIOR AND POSTERIOR CRUCIATE LIGAMENT, COMBINED Left COLONOSCOPY N/A 03/30/2017 Procedure: COMBINED COLONOSCOPY, SINGLE OR MULTIPLE BIOPSY/POLYPECTOMY BY BIOPSY;; Surgeon: Kodi Garnica MD; Location: [facility] OR COLONOSCOPY WITH CO2 INSUFFLATION N/A 03/30/2017 Procedure: COLONOSCOPY WITH CO2 INSUFFLATION; Diarrhea, unspecified type BMI: 23.35 Ins: Medicaid Pharmacy: [facility] Referring: Dr. Castaneda; Surgeon: Kodi Garnica MD; Location: [facility] OR DILATION AND CURETTAGE SUCTION N/A 04/20/2023 Procedure: SUCTION DILATION AND CURETTAGE UNDER ULTRASOUND GUIDANCE; Surgeon: Gill Boss MD; Location: [facility] OR ENT SURGERY tonsils IR NEPHROSTOMY TUBE PLACEMENT LEFT 07/15/2024 Social Hx: Social History Tobacco Use Smoking status: Never Smokeless tobacco: Never Substance Use Topics Alcohol use: No Drug use: No Family History: family history includes Breast Cancer in an other family member; Cancer in her mother; Hypertension in her father and mother. O: BP 113/70 (BP Location: Left arm) Pulse (!) 128 Temp 99.6 ??F (37.6 ??C) (Oral) Resp 17 SpO2 97% Constitutional: Healthy appearing female, no acute distress HEENT: Normal appearance. Neck supple, thyroid normal in size without nodularity or masses. Cardiovascular: Regular rate and rhythm without murmurs, clicks, gallops or rub Gastrointestinal: Abdomen soft Skin: No suspicious lesions or rashes Psychiatric: mentation appears normal and affect normal/bright Assessment: Dash Webb is a 28 year old at 13w4d by LMP c/w first trimester US admitted with fever/tachycardia and sepsis due to UTI and left obstructive nephrolithaisis. Primary management done by Internal Medicine, Urology and Interventional Radiology managing acute inpatient needs. IUP at 13 weeks: - Ultrasound done earlier today demonstrates single viable intrauterine . heart ratewas noted to range from 192-207 bpm. Reassured patient that when she is either febrile or tachycardic, it is normal for the baby to also have a higher heart rate. - Discussed that we can have the L&D nurses do doptones later this evening for reassurance but that there is a big range of normal in the first and early second trimester for FHR - Reassured that the medications she is on currently are safe in and that benefits outweigh risks given the severity of her symptoms/illness - Okay with use of ceftriaxone in as well as zofran, tylenol, flomax and narcotics as needed for pain. Recommend avoiding NSAIDs. - Okay to use stool softeners, also added Miralax as patient is constipated. Okay to use magnesium citrate or dulcolax as well prn - Patient is anemic and iron deficient - she should start oral iron supplementation after acute illness/once bowel function improves. Could also consider IV iron infusions once acute illness resolves. Thank you for this consultation. Patient does have scheduled follow up with her ACADEMIC ADVISEMENT DIRECTOR clinic laterthis week but please let us know if we can be of further service or if there are other questions/concerns. Ana Paula Gerard MD ACADEMIC ADVISEMENT DIRECTOR & Infertility Pager [phone] 07/15/24 Time spent with patient as well as counseling/coordination of care: 40 minutes IC POLICY ANALYST * Angela Poon LSW - 07/15/2024 4:04 PM CSTAssociated Order(s): CARE MANAGEMENT / SOCIAL WORK IP CONSULT; CARE MANAGEMENT / SOCIAL WORK IP CONSULT Care Management Follow Up Length of Stay (days): 1 Expected Discharge Date: 07/16/2024 Concerns to be Addressed: Patient plan of care discussed at interdisciplinary rounds: Yes Anticipated Discharge Disposition: Anticipated Discharge Services: Anticipated Discharge DME: Patient/family educated on Medicare website which has current facility and service quality ratings: Education Provided on the Discharge Plan: Patient/Family in Agreement with the Plan: Referrals Placed by CM/SW: Private pay costs discussed: Not applicable Discussed ???Partnership in Safe Discharge Planning??? document with patient/family: No Handoff Completed: No, handoff not indicated or clinically appropriate Additional Information: Per rounds and chart review patient will likely discharge home with no needs from care management Next Steps: No further care management intervention anticipated at this time. Please re-consult if further needs arise. Care management signing off. YOUSIF Weir IC POLICY ANALYST documented in this encounter Miscellaneous Notes * Plan of Care - Deedee Alvarenga, RN - 07/18/2024 6:26 AM CST Goal Outcome Evaluation: Plan of Care Reviewed With: patient Overall Patient Progress: improvingOverall Patient Progress: improving Summary: Sepsis due to UTI and obstructive left nephrolithiasis Surgery: POD #4 Left nephrostomy tube placement Behavior & Aggression: Green Fall Risk: No Orientation: A& Ox4 ABNL VS/O2: VSS on RA ABNL Labs: WBC 12 & Hb.8 Pain Management: PRN Tylenol & heat packs Bowel/Bladder: Nephrostomy in place draining well and voiding in BR- straining urine. BS audible- passing gas/ a couple loose stools overnight IV: PIV SL Wounds/incisions: Nephrostomy tube site on L flank Diet: Regular Activity Level: Independent Tests/Procedures: N/A Anticipated DC Date: Pending Significant Information: Is 13 weeks IC POLICY ANALYST IC POLICY ANALYST * Plan of Care - Jazmine Marcus RN - 07/17/2024 6:16 PM CST Date & Time: 07/17/2024 [id number] Summary: Sepsis due to UTI and obstructive left nephrolithiasis Surgery/POD#: 3 L Neph tube placement Behavior & Aggression: Green Fall Risk: No Orientation: Aox4 ABNL VS/O2: VSS on RA ABNL Labs: WNL Pain Management: Denies Bowel/Bladder: Nephrostomy in place draining well and voiding in BR. Large BM x3, straining urine IV/Drains: Neph tube, R PIV inf NS@75mL/hr Wounds/incisions: Neph tube site on L flank Diet: Regular Activity Level: Ind Tests/Procedures: N/A Anticipated DC Date: 07/18/24 Significant Information: 13 weeks . Blood cultures pending. IV Iron infusion done, will getanother IV iron in AM IC POLICY ANALYST * Plan of Care - Jeffrey Frausto RN - 07/16/2024 6:40 AM CST Goal Outcome Evaluation: Plan of Care Reviewed With: patient Overall Patient Progress: improvingOverall Patient Progress: improving Date & Time: 07/15/2024 [id number] Summary: Sepsis due to UTI and obstructive left nephrolithiasis Surgery/POD#: 2 Neph tube placement Behavior & Aggression: Green Fall Risk: No Orientation: Aox4 ABNL VS/O2: VSS on RA ABNL Labs: Awaiting AM labs Pain Management: Pain managed with tylenol. Pt restless at times but declined oxy. Bowel/Bladder: Nephrostomy in place draining well and voiding in BR. No BM this shift. BS+ IV/Drains: Neph tube, R PIV inf NS@125mL/hr Wounds/incisions: Neph tube site on L flank CDI Diet: Regular Activity Level: Ind Tests/Procedures: N/A Anticipated DC Date: Pending Significant Information: 13 weeks . No acute concerns overnight. Blood cultures pending, seen by Urology and OB IC POLICY ANALYST IC POLICY ANALYST * Plan of Care - Jazmine Marcus RN - 07/15/2024 6:06 PM CST Date & Time: 07/15/2024 [id number] Summary: Sepsis due to UTI and obstructive left nephrolithiasis Surgery/POD#: 1 Neph tube placement Behavior & Aggression: Green Fall Risk: No Orientation: Aox4 ABNL VS/O2: TMAX: 100.5, Tachy ABNL Labs: WBC: 18.7, K: 3.3 Pain Management: Denies Bowel/Bladder: Nephrostomy in place draining well and voiding in BR. No BM this shift. BS+ Drains: Neph tube Wounds/incisions: Nepth tube site on L flank Diet: Regular Activity Level: Ind Tests/Procedures: N/A Anticipated DC Date: 07/16-07/17 Significant Information: 13 weeks . Had PUMPER HEAD 07/15 @0500 see notes. TMAX 100.5, Blood cultures pending, seen by Urology and OB IC POLICY ANALYST * Pharmacy-Consult Note - Cindi Woodard, [facility] - 07/15/2024 4:57 PM PUBLIC POLICY ANALYST Asked to review medications in 13 week pt and to evaluate use of Tamsulosin for this patient Current Medications: Ceftriaxone - RECOMMENDATION: Compatible Senna S - RECOMMENDATION: Compatible Ondansetron PRN - RECOMMENDATION: Human Data Suggest Risk in 1st Trimester Oxycodone PRN - RECOMMENDATION: Use for prolonged periods or in high doses at term has the potential to cause abstinence syndrome or respiratory depression in the . Hydromorphone PRN - RECOMMENDATION: Human Data Suggest Risk The National Defects Prevention Study found evidence that opioid use during organogenesis is associated with a low absolute risk of congenital defects. In addition, withdrawal could occurin infants exposed in utero to prolonged maternal ingestion of hydromorphone. When opioids are needed to treat acute pain in patients, the lowest effective dose for only the expected duration of pain should be prescribed Tamsulosin: RECOMMENDATION: Limited Human Data--Animal Data Suggest Low Risk One report describing the use of tamsulosin in human has been located. The animal data suggest low risk, but the absence of human experience prevents a better assessment of the embryo- risk. Until such data are available, the safest course is to avoid use in . Considerations Information related to the use of tamsulosin for ureteral calculi expulsion in is limited(Valarie 2016; Nolvia 2019) IC POLICY ANALYST IC POLICY ANALYST * Plan of Care - Isaiah Davis RN - 07/15/2024 6:30 AM CST Goal Outcome Evaluation: Plan of Care Reviewed With: patient Overall Patient Progress: no changeOverall Patient Progress: no change Date & Time: 07/15/2024 [id number] Surgery/POD#: 0 Neph tube placement Behavior & Aggression: Green Fall Risk: No Orientation:AOx4 ABNL VS/O2: on RA, tachycardic, elevated temp, and hypotension at the times. MD was notified. ABNL Labs: See labs Pain Management:Denies Bowel/Bladder: Nephrostomy in place draining well and voiding in BR. No BM this shift. BS+ Drains: Neph tube Wounds/incisions: Nepth tube site on L flank Diet:NPO Activity Level: Ind Tests/Procedures: N/A Anticipated DC Date: Pending Significant Information: PUMPER HEAD called @ 0430 due to tachycardic (151), fever 103 and SOB and chest pain. Bolus 1000 mL NS, tylenol was given, tele in place. Pt stable and ambulating x2 at the end of the shift. 13 weeks . at bedside. IC POLICY ANALYST IC POLICY ANALYST IC POLICY ANALYST * Code/Rapid Response - Jeovanny Bartholomew APRN FLEET MECHANIC - 07/15/2024 5:07 AM PUBLIC POLICY ANALYST [facility] DEANNA PUMPER HEAD Note 07/15/2024 Time Called: 0429 PUMPER HEAD called for: Chest pain Assessment & Plan Heart palpitations 2/2 sinus tachycardia in setting of sepsis, fever. - Upon arrival, pt lying in bed, awake, alert, in no overt distress, nontoxic appearing with VS noting HR 130s-140s, SBP 120s, RR 10s, O2 sats > 92% on RA, febrile 102. Nursing notes pt had endorsed chest pain prompting PUMPER HEAD. Pt reports a thumping feeling in her chest. Pt also notes a sharp pain with very deep inspiration; pt suspects due to constipation and recent nephrostomy tube placement.Pt also endorses anxiety regarding overall clinical condition in setting of 13 weeks . Pt'shusband also present at pt's bedside, no questions at this time. INTERVENTIONS: - 1L NS bolus over 2 hours; noted pt received 1L IVF bolus at OSH, 30 ml/kg = 1920 ml - Stat lactic acid with AM CBC and BMP now - Will advance pt's diet to regular diet; pt requesting water without ice - Will place pt on telemetry monitoring and adjust VS to Q4H - Nursing to administer APAP when available - Pt continues on ceftriaxone - If ongoing tachycardia despite fever and sepsis resolution or if pt develops hypoxia or SOB, may need to consider PE study in setting of , sepsis - Of note, pt states my machine fur cleaner told me I need to be on a baby aspirin; will defer to OBGYN if deemed appropriate At the end of the PUMPER HEAD pt resting in bed, in no overt distress, SBP remains stable Discussed with and defer further cares to nursing and Dr. Kwok, admitting hospitalist Interval History Dash Webb is a 28 year old female who was admitted on 07/14/2024 for L flank pain, N/V, fever, hematuria. Medical history significant for: Past Medical History: Diagnosis Date Acne Concussion 12/10/2012 Code Status: Full Code Allergies Allergies Allergen Reactions Penicillins Hives Physical Exam Vital Signs with Ranges: Temp: [99.8 ??F (37.7 ??C)-102 ??F (38.9 ??C)] 102 ??F (38.9 ??C) Pulse: [105-151] 139 Resp: [10-26] 18 BP: (87-139)/(55-90) 121/84 SpO2: [96 %-100 %] 98 % I/O last 3 completed shifts: In: - Out: 125 [Urine:125] Constitutional: Pt lying in bed, awake, alert, in no overt distress, nontoxic appearing Neck: No upper airway wheezes or stridor noted Pulmonary: In no apparent respiratory distress Cardiovascular: Tachycardic, regular rate and rhythm GI: Nondistended Skin/Integumen: Warm, dry, pink Neuro: Awake, alert, clear speech, no obvious focal neuro deficit noted Psych: Appears mildly anxious Extremities: Moving all extremities Data Lactic acid: No results for input(s): LACT in the last 168 hours. CBC with Diff: Recent Labs Lab Test 01/29/23 1027 WBC 17.3* HGB 11.3* MCV 87 PLT 291 Comprehensive Metabolic Panel: No lab results found in last 7 days. Medical Decision Making 25 MINUTES SPENT BY ME on the date of service doing chart review, history, exam, documentation & further activities per the note. Jeovanny Bartholomew APRN CNP Hospitalist-House DE[facility] Hospitalist Service Securely message with [employer] info) Text page via [facility] Paging/Directory IC POLICY ANALYST * Pre-Procedure - Savannah Chang MD - 07/14/2024 11:04 PM CST GENERAL PRE-PROCEDURE: Procedure: L neph tube Date/Time: 07/14/2024 11:04 PM Written consent obtained?: Yes Risks and benefits: Risks, benefits and alternatives were discussed Consent given by: Patient Patient states understanding of procedure being performed: Yes Patient's understanding of procedure matches consent: Yes Procedure consent matches procedure scheduled: Yes Expected level of sedation: Moderate Appropriately NPO: Yes Mallampati : Grade 2- soft palate, base of uvula, tonsillar pillars, and portion of posterior pharyngeal wall visible Lungs: Lungs clear with good breath sounds bilaterally Heart: Normal heart sounds and rate History & Physical reviewed: History and physical reviewed and no updates needed Statement of review: I have reviewed the lab findings, diagnostic data, medications, and the plan for sedation IC POLICY ANALYST * IR Note - Monica Velazquez RN - 07/14/2024 11:00 PM CST Interventional Radiology Intra-procedural Nursing Note Patient Name: Dash Webb Today's Date: July 14, 2024 Procedure: Left nephrostomy tube placement with IV moderate sedation Start time: 2348 End time: 0010 Report provided to: YAZAN Colon Patient depart time and location: 0023 to Room 2224 Note: Patient entered Interventional Radiology Suite number 1 via cart. Patient awake, alert and oriented. Assisted onto procedural table in proned position. Prepped and draped. Dr. Chang in room. Time out and procedure started. Vital signs stable. Telemetry reading ST. Procedure well tolerated by patient without complications. Procedure end with debrief by Dr. Chang. Manual pressure applied until hemostasis achieved. Sutures, mepilex, gauze and tegaderm dressing applied to left interventional procedure access site, dressing is c/d/I. Sample collected and sent to lab for cultures. Administered medication totals: Lidocaine 1% 18 mL Intradermal Fentanyl 125 mcg IVP IC POLICY ANALYST * Pharmacy-Admission Medication History - Martha Hawkins RPH - 07/14/2024 9:40 PM PUBLIC POLICY ANALYST Pharmacist Admission Medication History Admission medication history is complete. The information provided in this note is only as accurateas the sources available at the time of the update. Information Source(s): Patient and CareEverywhere/SureScripts via in-person Pertinent Information: All meds besides were recently prescribed on 07/12 for kidney stone.Patient reported [place] caused some constipation so she hasn't been taking it much Changes made to IMPORTER EXPORTER medication list: Added: all Deleted: ibuprofen, vit d Changed: None Allergies reviewed with patient and updates made in EHR: yes Medication History Completed By: Martha Hawkins RPH 07/14/2024 9:40 PM IMPORTER EXPORTER Med List Medication Sig Last Dose/Taking acetaminophen (TYLENOL) 500 MG tablet Take 500-1,000 mg by mouth every 6 hours as needed for mild pain. Unknown HYDROcodone-acetaminophen (NORCO) 5-325 MG tablet Take 1 tablet by mouth every 4 hours as needed for pain. 07/13/2024 at 2:00 PM ondansetron (ZOFRAN) 4 MG tablet Take 4 mg by mouth every 8 hours as needed for nausea or vomiting.07/13/2024 Vit-Fe Fumarate-FA ( PLUS) 27-1 MG TABS Take 1 tablet by mouth daily. 07/13/2024 tamsulosin (FLOMAX) 0.4 MG capsule Take 0.4 mg by mouth daily. 07/13/2024 IC POLICY ANALYST documented in this encounter Plan of Treatment Not on file documented as of this encounter Procedures Procedure Name Priority Date/Time Associated Diagnosis Comments WBC COUNT Routine 07/18/2024 11:12 AM PUBLIC POLICY ANALYST HEMOGLOBIN Routine 07/18/2024 11:12 AM PUBLIC POLICY ANALYST CBC WITH PLATELETS Routine 07/17/2024 7: 41 AM PUBLIC POLICY ANALYST FOLATE Routine 07/16/2024 8:01 AM PUBLIC POLICY ANALYST BASIC METABOLIC PANEL Routine 07/16/2024 8:01 AM PUBLIC POLICY ANALYST CBC WITH PLATELETS Routine 07/16/2024 8: 01 AM PUBLIC POLICY ANALYST BLOOD CULTURE STAT 07/15/2024 4:05 PM PUBLIC POLICY ANALYST LACTIC ACID WHOLE BLOOD Timed 07/15/2024 2:13 PM PUBLIC POLICY ANALYST IRON AND IRON BINDING CAPACITY Add-On 07/15/2024 2:13 PM PUBLIC POLICY ANALYST FERRITIN Add-On 07/15/2024 2:13 PM PUBLIC POLICY ANALYST VITAMIN B12 Add-On 07/15/2024 2:13 PM PUBLIC POLICY ANALYST US OB < 14 WEEKS SINGLE-TRANSABDOMINAL Routine 07/15/2024 1:28 PM PUBLIC POLICY ANALYST LACTIC ACID WHOLE BLOOD Timed 07/15/2024 10:40 AM PUBLIC POLICY ANALYST PROCALCITONIN Add-On 07/15/2024 7:56 AM PUBLIC POLICY ANALYST HEPATIC FUNCTION PANEL Add-On 7:56 AM PUBLIC POLICY ANALYST BASIC METABOLIC PANEL Routine 07/15/2024 7:56 AM PUBLIC POLICY ANALYST RBC AND PLATELET MORPHOLOGY Routine 07/15/2024 6:00 AM PUBLIC POLICY ANALYST CBC WITH PLATELETS AND DIFFERENTIAL Routine 07/15/2024 6:00 AM PUBLIC POLICY ANALYST CBC WITH PLATELETS & DIFFERENTIAL Routine 07/15/2024 6:00 AM PUBLIC POLICY ANALYST LACTIC ACID WHOLE BLOOD STAT 07/15/2024 6:00 AM PUBLIC POLICY ANALYST URINE CULTURE Routine 07/15/2024 12:39 AM PUBLIC POLICY ANALYST IMAGING PROCEDURE NOTE Routine 12:14 AM PUBLIC POLICY ANALYST IR NEPHROSTOMY TUBE PLACEMENT LEFT STAT 07/15/2024 12:09 AM PUBLIC POLICY ANALYST documented in this encounter Results * (ABNORMAL) Hemoglobin (07/18/2024 11:12 AM PUBLIC POLICY ANALYST) Hemoglobin 10.6(L) 11.7 - 15.7 g/dL 07/18/2024 11:53 AM PUBLIC POLICY ANALYST LABORATORY Blood STRUCTURE OF LEFT HAND / Unknown Venipuncture / Unknown 07/18/2024 11:12 AM PUBLIC POLICY ANALYST 07/18/2024 11:48 AM PUBLIC POLICY ANALYST Karey Gonzalez MD LAB - BLOOD ORDERABLES Final Res ult LABORATORY [facility] [address], [address], [place] [address], [facility] [phone] * WBC count (07/18/2024 11:12 AM PUBLIC POLICY ANALYST) WBC Count 8.7 4.0 - 11.0 10e3/uL 07/18/2024 11:53 AM [facility] Blood STRUCTURE OF LEFT HAND / Unknown Venipuncture / Unknown 07/18/2024 11:12 AM PUBLIC POLICY ANALYST 07/18/2024 11:48 AM PUBLIC POLICY ANALYST Karey Gonzalez MD LAB - BLOOD ORDERABLES Final Res ult LABORATORY [facility] [address], [address], [place] [address], [facility] [phone] * (ABNORMAL) CBC with platelets (07/17/2024 7:41 AM PUBLIC POLICY ANALYST) WBC Count 12.0(H) 4.0 - 11.0 10e3/uL 07/17/2024 8:03 AM [facility] RBC Count 3.19(L) 3.80 - 5.20 10e6/uL 07/17/2024 8:03 AM [facility] Hemoglobin 9.8(L) 11.7 - 15.7 g/dL 07/17/2024 8:03 AM [facility] Hematocrit 27.5(L) 35.0 - 47.0 % 07/17/2024 8:03 AM [facility] MCV 86 78 - 100 fL 07/17/2024 8:03 AM [facility] MCH 30.7 26.5 - 33.0 pg 07/17/2024 8:03 AM PUBLIC POLICY ANALYST LABORATORY MCHC 35.6 31.5 - 36.5 g/dL 07/17/2024 8:03 AM [facility] RDW 12.2 10.0 - 15.0 % 07/17/2024 8:03 AM [facility] Platelet Count 249 150 - 450 10e3/uL 07/17/2024 8:03 AM PUBLIC POLICY ANALYST LABORATORY Blood STRUCTURE OF LEFT HAND / Unknown Venipuncture / Unknown 07/17/2024 7:41 AM PUBLIC POLICY ANALYST 07/17/2024 7:57 AM PUBLIC POLICY ANALYST Karey Gonzalez MD LAB - BLOOD ORDERABLES Final Res ult LABORATORY [facility] [address], [address] [place] [address], [facility] [phone] * Folate (07/16/2024 8:01 AM PUBLIC POLICY ANALYST) Folic Acid 17.4 4.6 - 34.8 ng/mL 07/16/2024 12:08 PM PUBLIC POLICY ANALYST LABORATORY Blood STRUCTURE OF LEFT HAND / Unknown Venipuncture / Unknown 07/16/2024 8:01 AM PUBLIC POLICY ANALYST 07/16/2024 8:11 AM PUBLIC POLICY ANALYST Karey Gonzalez MD LAB - BLOOD ORDERABLES Final Res ult LABORATORY [facility] [address] [facility], [address] [place] [address], [facility] * (ABNORMAL) CBC with platelets (07/16/2024 8:01 AM PUBLIC POLICY ANALYST) WBC Count 19.9(H) 4.0 - 11.0 10e3/uL 07/16/2024 8:12 AM PUBLIC POLICY ANALYST LABORATORY RBC Count 3.23(L) 3.80 - 5.20 10e6/uL 07/16/2024 8:12 AM PUBLIC POLICY ANALYST LABORATORY Hemoglobin 10.2(L) 11.7 - 15.7 g/dL 07/16/2024 8:12 AM [facility] Hematocrit 28.0(L) 35.0 - 47.0 % 07/16/2024 8:12 AM [facility] MCV 87 78 - 100 fL 07/16/2024 8:12 AM [facility] MCH 31.6 26.5 - 33.0 pg 07/16/2024 8:12 AM [facility] MCHC 36.4 31.5 - 36.5 g/dL 07/16/2024 8:12 AM [facility] RDW 12.4 10.0 - 15.0 % 07/16/2024 8:12 AM [facility] Platelet Count 208 150 - 450 10e3/uL 07/16/2024 8:12 AM [facility] Blood STRUCTURE OF LEFT HAND / Unknown Venipuncture / Unknown 07/16/2024 8:01 AM PUBLIC POLICY ANALYST 07/16/2024 8:10 AM [facility] us Karey Gonzalez MD LAB - BLOOD ORDERABLES Final Res ult LABORATORY [facility] [address] floor, [address] [place] [address], [facility] [phone] * (ABNORMAL) Basic metabolic panel (07/16/2024 8:01 AM [facility]) Sodium 137 135 - 145 mmol/L 07/16/2024 8:41 AM [facility] Potassium 3.5 3.4 - 5.3 mmol/L 07/16/2024 8:41 AM [facility] Chloride 105 98 - 107 mmol/L 07/16/2024 8:41 AM [facility] Carbon Dioxide (CO2) 18(L) 22 - 29 mmol/L 07/16/2024 8:41 AM [facility] Anion Gap 14 7 - 15 mmol/L 07/16/2024 8:41 AM [facility] Urea Nitrogen 4.6(L) 6.0 - 20.0 mg/dL 07/16/2024 8:41 AM [facility] Creatinine 0.45(L) 0.51 - 0.95 mg/dL 07/16/2024 8:41 AM PUBLIC POLICY ANALYST LABORATORY GFR Estimate >90 >60 mL/min/1.7 3m2 07/16/2024 8:41 AM [facility] Comment:eGFR calculated us2020 CKD-EPI equation. Calcium 8.5(L) 8.8 - 10.4 mg/dL 07/16/2024 8:41 AM [facility] Comment:Reference intervals for this test were updated on 03/26/2024 to reflect our healthy population more accurately. There may be differences in the flagging of prior results with similar values performed with this method. Those prior results can be interpreted in the context of the updated reference intervals. Glucose 86 70 - 99 mg/dL 07/16/2024 8:41 AM [facility] Blood STRUCTURE OF LEFT HAND / Unknown Venipuncture / Unknown 07/16/2024 8:01 AM PUBLIC POLICY ANALYST 07/16/2024 8:10 AM PUBLIC POLICY ANALYST Karey Gonzalez MD LAB - BLOOD ORDERABLES Final Res ult LABORATORY [facility] [address], [address] [place] [address], [facility] [phone] * Blood Culture Hand, Left (07/15/2024 4:05 PM PUBLIC POLICY ANALYST) Culture No Growth 07/20/2024 7:01 PM PUBLIC POLICY ANALYST [facility] Blood STRUCTURE OF LEFT HAND / Unknown Venipuncture / Unknown 07/15/2024 4:05 PM PUBLIC POLICY ANALYST 07/15/2024 4:20 PM PUBLIC POLICY ANALYST Karey Gonzalez MD LAB - MICRO GENERAL ORDERABLES F inal Result [facility] Inf. Diseases Diag. Lab [address], [address] [place] [address], [facility] * Ferritin (07/15/2024 2:13 PM PUBLIC POLICY ANALYST) Ferritin 166 6 - 175 ng/mL 07/15/2024 11:07 PM PUBLIC POLICY ANALYST LABORATORY Blood STRUCTURE OF LEFT HAND / Unknown Venipuncture / Unknown 07/15/2024 2:13 PM PUBLIC POLICY ANALYST 07/15/2024 2:30 PM PUBLIC POLICY ANALYST Karey Gonzalez MD LAB - BLOOD ORDERABLES Final Res ult U LABORATORY [facility] [address] [facility] [address] [facility], [address] [place] [address], [facility] * (ABNORMAL) Iron and iron binding capacity (07/15/2024 2:13 PM PUBLIC POLICY ANALYST) Iron 9(L) 37 - 145 ug/dL 07/15/2024 3:52 PM PUBLIC POLICY ANALYST LABORATORY Iron Binding Capacity 263 240 - 430 ug/dL 07/15/2024 3:52 PM PUBLIC POLICY ANALYST LABORATORY Iron Sat Index 3(L) 15 - 46 % 07/15/2024 3:52 PM PUBLIC POLICY ANALYST LABORATORY Blood STRUCTURE OF LEFT HAND / Unknown Venipuncture / Unknown 07/15/2024 2:13 PM PUBLIC POLICY ANALYST 07/15/2024 2:30 PM PUBLIC POLICY ANALYST Karey Gonzalez MD LAB - BLOOD ORDERABLES Final Res ult LABORATORY [facility] [address], [address] [place] [address], [facility] [phone] * Vitamin B12 (07/15/2024 2:13 PM PUBLIC POLICY ANALYST) Vitamin B12 536 232 - 1,245 pg/mL 07/15/2024 11:07 PM PUBLIC POLICY ANALYST LABORATORY Blood STRUCTURE OF LEFT HAND / Unknown Venipuncture / Unknown 07/15/2024 2:13 PM PUBLIC POLICY ANALYST 07/15/2024 2:30 PM PUBLIC POLICY ANALYST Karey Gonzalez MD LAB - BLOOD ORDERABLES Final Res ult [facility] LABORATORY [facility] [place] [facility] [address] [facility]. [facility], [address] [place] [address], [facility] * Lactic acid whole blood (07/15/2024 2:13 PM PUBLIC POLICY ANALYST) Lactic Acid 0.9 0.7 - 2.0 mmol/L 07/15/2024 2:37 PM PUBLIC POLICY ANALYST LABORATORY Blood STRUCTURE OF LEFT HAND / Unknown Venipuncture / Unknown 07/15/2024 2:13 PM PUBLIC POLICY ANALYST 07/15/2024 2:30 PM PUBLIC POLICY ANALYST Karey Gonzalez MD LAB - BLOOD ORDERABLES Final Res ult LABORATORY [facility] [address], [address] [place] [address], [facility] [phone] * US OB < 14 Weeks Single (07/15/2024 1:28 PM PUBLIC POLICY ANALYST) Anatomical Region Laterality Modality Abdomen/Pelvis Ultrasound Impressions 07/15/2024 5:11 PM PUBLIC POLICY ANALYST IMPRESSION: 1. Single living intrauterine gestation. 2. tachycardia with heart rate ranging from 192-207 bpm. MARIA A MARCOS MD SYSTEM ID: [id number] Narrative 07/15/2024 5:11 PM PUBLIC POLICY ANALYST US OB < 14 WEEKS SINGLE-TRANSABDOMINAL 07/15/2024 [...] by bowel gas. Procedure Note Maria A Marcos MD - 07/15/2024 US OB < 14 [...] rate ranging from 192-207 bpm. MARIA A MARCOS MD SYSTEM ID: [id number] Karey Gonzalez MD IMG US ORDERABLES Final Result * Lactic acid whole blood (07/15/2024 10:40 AM PUBLIC POLICY ANALYST) Lactic Acid 1.2 0.7 - 2.0 mmol/L 07/15/2024 10:47 AM PUBLIC POLICY ANALYST LABORATORY Blood STRUCTURE OF LEFT HAND / Unknown Venipuncture / Unknown 07/15/2024 10:40 AM PUBLIC POLICY ANALYST 07/15/2024 10:45 AM PUBLIC POLICY ANALYST Karey Gonzalez MD LAB - BLOOD ORDERABLES Final Res ult LABORATORY [facility] [address], [address] [place] [address], [facility] [phone] * Procalcitonin (07/15/2024 7:56 AM PUBLIC POLICY ANALYST) Procalcitonin 0.42 <0.50 ng/mL 07/15/2024 8:52 AM PUBLIC POLICY ANALYST LABORATORY Comment: Interpretation and Recommendations <0.5 ng/mL: Systemic bacterial infection unlikely. Local bacterial infection is possible. 0.5-1.99 ng/mL: Systemic bacterial infection possible, but various other conditions are known to induce PCT as well. >=2.00 ng/mL: Systemic bacterial infection likely, unless other causes are known. Decision to start antibiotics should not be based on procalcitonin level alone. See Procalcitonin Guidance document for more details. [email or web address] Factors that may affect PCT levels (not [...] Unknown Venipuncture / Unknown 07/15/2024 7:56 AM PUBLIC POLICY ANALYST 07/15/2024 8:11 AM PUBLIC POLICY ANALYST us Karey Gonzalez MD LAB - BLOOD ORDERABLES Final Res ult LABORATORY [facility] [address], [address] [place] [address], [facility] [phone] * Hepatic panel (07/15/2024 7:56 AM PUBLIC POLICY ANALYST) Protein Total 6.8 6.4 - 8.3 g/dL 07/15/2024 8:52 AM PUBLIC POLICY ANALYST LABORATORY Albumin 3.6 3.5 - 5.2 g/dL 07/15/2024 8:52 AM PUBLIC POLICY ANALYST LABORATORY Bilirubin Total 0.3 <=1.2 mg/dL 07/15/2024 8:52 AM PUBLIC POLICY ANALYST LABORATORY Alkaline Phosphatase 77 40 - 150 U/L 07/15/2024 8:52 AM [facility] AST 20 0 - 45 U/L 07/15/2024 8:52 AM [facility] ALT 11 0 - 50 U/L 07/15/2024 8:52 AM [facility] Bilirubin Direct <0.20 0.00 - 0.30 mg/dL 07/15/2024 8:52 AM [facility] Blood STRUCTURE OF LEFT WRIST REGION / Unknown Venipuncture / Unknown 07/15/2024 7:56 AM PUBLIC POLICY ANALYST 07/15/2024 8:11 AM [facility] us Karey Gonzalez MD LAB - BLOOD ORDERABLES Final Res ult LABORATORY [facility] [address], [address] [place] [address], [facility] [phone] * (ABNORMAL) Basic metabolic panel (07/15/2024 7:56 AM [facility]) Sodium 134(L) 135 - 145 mmol/L 07/15/2024 8:52 AM [facility] Potassium 3.3(L) 3.4 - 5.3 mmol/L 07/15/2024 8:52 AM [facility] Chloride 102 98 - 107 mmol/L 07/15/2024 8:52 AM [facility] Carbon Dioxide (CO2) 17(L) 22 - 29 mmol/L 07/15/2024 8:52 AM [facility] Anion Gap 15 7 - 15 mmol/L 07/15/2024 8:52 AM [facility] Urea Nitrogen 4.5(L) 6.0 - 20.0 mg/dL 07/15/2024 8:52 AM [facility] Creatinine 0.59 0.51 - 0.95 mg/dL 07/15/2024 8:52 AM [facility] GFR Estimate >90 >60 mL/min/1.7 3m2 07/15/2024 8:52 AM [facility] Comment:eGFR calculated usin g 2020 CKD-EPI equation. Calcium 8.2(L) 8.8 - 10.4 mg/dL 07/15/2024 8:52 AM [facility] Comment:Reference intervals for this test were updated on 03/26/2024 to reflect our healthy population more accurately. There may be differences in the flagging of prior results with similar values performed with this method. Those prior results can be interpreted in the context of the updated reference intervals. Glucose 179(H) 70 - 99 mg/dL 07/15/2024 8:52 AM [facility] Blood STRUCTURE OF LEFT WRIST REGION / Unknown Venipuncture / Unknown 07/15/2024 7:56 AM PUBLIC POLICY ANALYST 07/15/2024 8:11 AM [facility] Parveen Kwok MD LAB - BLOOD ORDERABLES F inal Result [facility] [address], [address] [place] [address], [facility] [phone] * (ABNORMAL) RBC and Platelet Morphology (07/15/2024 6:00 AM PUBLIC POLICY ANALYST) RBC Morphology Confirmed RBC Indices 07/15/2024 7:37 AM [facility] Platelet Assessment Automated Count Confirmed. Platelet morphology is normal. Automated Count Confirmed. Platelet morphology is normal. CIERRA 07/15/2024 7:37 AM [facility] Toxic Neutrophils Present(A) None Seen CIERRA 07/15/2024 7:37 AM [facility] Blood BLOOD SPECIMEN / Unknown Venipuncture / Unknown 07/15/2024 6:00 AM PUBLIC POLICY ANALYST 07/15/2024 6:12 AM PUBLIC POLICY ANALYST Parveen Kwok MD LAB - BLOOD ORDERABLES F inal Result LABORATORY [facility] [address], [address] [place] [address], [facility] [phone] * (ABNORMAL) CBC with platelets and differential (07/15/2024 6:00 AM PUBLIC POLICY ANALYST) WBC Count 18.7(H) 4.0 - 11.0 10e3/uL 07/15/2024 7:37 AM [facility] RBC Count 3.24(L) 3.80 - 5.20 10e6/uL 07/15/2024 7:37 AM [facility] Hemoglobin 10.1(L) 11.7 - 15.7 g/dL 07/15/2024 7:37 AM [facility] Hematocrit 28.2(L) 35.0 - 47.0 % 07/15/2024 7:37 AM [facility] MCV 87 78 - 100 fL 07/15/2024 7:37 AM [facility] MCH 31.2 26.5 - 33.0 pg 07/15/2024 7:37 AM [facility] MCHC 35.8 31.5 - 36.5 g/dL 07/15/2024 7:37 AM [facility] RDW 12.0 10.0 - 15.0 % 07/15/2024 7:37 AM [facility] Platelet Count 211 150 - 450 10e3/uL 07/15/2024 7:37 AM [facility] % Neutrophils 83 % 07/15/2024 7:37 AM [facility] % Lymphocytes 3 % 07/15/2024 7:37 AM [facility] % Monocytes 7 % 07/15/2024 7:37 AM [facility] % Eosinophils 6 % 07/15/2024 7:37 AM [facility] % Basophils 0 % 07/15/2024 7:37 AM [facility] % Immature Granulocytes 1 % 07/15/2024 7:37 AM [facility] NRBCs per 100 WBC 0 <1 /100 024 7:37 AM [facility] Absolute Neutrophils 15.5(H) 1.6 - 8.3 10e3/uL 07/15/2024 7:37 AM [facility] Absolute Lymphocytes 0.6(L) 0.8 - 5.3 10e3/uL 07/15/2024 7:37 AM [facility] Absolute Monocytes 1.3 0.0 - 1.3 10e3/uL 07/15/2024 7:37 AM [facility] Absolute Eosinophils 1.1(H) 0.0 - 0.7 10e3/uL 07/15/2024 7:37 AM [facility] Absolute Basophils 0.0 0.0 - 0.2 10e3/uL 07/15/2024 7:37 AM PUBLIC POLICY ANALYST LABORATORY Absolute Immature Granulocytes 0.1 <=0.4 10e3/uL 07/15/2024 7:37 AM PUBLIC POLICY ANALYST LABORATORY Absolute NRBCs 0.0 10e3/uL 07/15/2024 7:37 AM PUBLIC POLICY ANALYST LABORATORY Blood BLOOD SPECIMEN / Unknown Venipuncture / Unknown 07/15/2024 6:00 AM PUBLIC POLICY ANALYST 07/15/2024 6:12 AM PUBLIC POLICY ANALYST Parveen Kwok MD LAB - BLOOD ORDERABLES F inal Result LABORATORY [facility] [address], [address] [place] [address], [facility] [phone] * (ABNORMAL) Lactic acid whole blood (07/15/2024 6:00 AM PUBLIC POLICY ANALYST) Lactic Acid 0.5(L) 0.7 - 2.0 mmol/L 07/15/2024 6:12 AM PUBLIC POLICY ANALYST LABORATORY Blood BLOOD SPECIMEN / Unknown Venipuncture / Unknown 07/15/2024 6:00 AM PUBLIC POLICY ANALYST 07/15/2024 6:11 AM PUBLIC POLICY ANALYST Jeovanny Bartholomew APRN, CNP LAB - BLOOD ORDERABLES F inal Result LABORATORY [facility] [address], [address] [place] [address], [facility] [phone] * (ABNORMAL) Urine Culture Aerobic Bacterial (07/15/2024 12:39 AM PUBLIC POLICY ANALYST) Culture 10,000-50,000 CFU/mL Enterococcus faecalis(A) CIERRA 07/17/2024 10:30 PM PUBLIC POLICY ANALYST [facility] Culture 10,000-50,000 CFU/mL Enterococcus faecalis(A) 07/17/2024 10:30 PM PUBLIC POLICY ANALYST [facility] Urine MID-STREAM URINE SPECIMEN / Unknown Non-blood Collection / Unknown 07/15/2024 12:39 AM PUBLIC POLICY ANALYST 07/15/2024 12:45 AM PUBLIC POLICY ANALYST Narrative Organism Antibiotic Method Susceptibility Enterococcus faecalis Ampicillin CIERRA <=2 ug/mL: Susceptible Enterococcus faecalis Vancomycin CIERRA 1 ug/mL: Susceptible Enterococcus faecalis Nitrofurantoin CIERRA <=16 ug/mL: Susceptible Enterococcus faecalis Ampicillin CIERRA <=2 ug/mL: Susceptible Enterococcus faecalis Vancomycin CIERRA 1 ug/mL: Susceptible Enterococcus faecalis Nitrofurantoin CIERRA <=16 ug/mL: Susceptible Savannah Chang MD LAB - MICRO GENERAL ORDERABLE S Final Result [facility] Inf. Diseases Diag. Lab [address], [address] [place] [address] * Imaging Procedure Note (07/15/2024 12:14 AM PUBLIC POLICY ANALYST) Narrative Savannah Chang MD - 07/15/2024 12:14 AM PUBLIC POLICY ANALYST Savannah Chang MD ? 07/15/2024 12:14 AM [facility] Procedure: Imaging Procedure Note Date/Time: 07/15/2024 12:14 AM Performed by: Savannah Chang MD Authorized by: Savannah Chang MD ??IR Fellow Physician: Pre Procedure Diagnosis: [...] procedure a time out was called ?? [place] Protocol: the Joint Commission [place] Protocol was followed ?? Preparation: Patient was [...] 1:1 monitoring during sedation: 0 min Savannah Chang MD PROCEDURE/MINOR SURGICAL ORDE ELIZABETH Final Result * IR Nephrostomy Tube Placement Left (07/15/2024 12:09 AM PUBLIC POLICY ANALYST) Anatomical Region Laterality Modality Abdomen/Pelvis Radio Fluoroscop y Impressions 07/15/2024 1:39 AM PUBLIC POLICY ANALYST IMPRESSION: ?? 1. Successful 10 Anguillan left nephrostomy tube placement. PLAN: Nephrostomy tube to gravity drain. SAVANNAH CHANG MD Narrative 07/15/2024 1:39 AM PUBLIC POLICY ANALYST DATE: 07/15/2024 PROCEDURE: ANTEGRADE PYELOGRAM AND PERCUTANEOUS NEPHROSTOMY 1. Ultrasound-guided access of the left intrarenal collecting system. A permanent image was stored. 2. Antegrade pyelography. 3. Percutaneous nephrostomy tube placement. 4. Moderate sedation. INTERVENTIONAL RADIOLOGIST: Savannah Chang MD INDICATION: 28-year-old female noted to have [...] observer. The physician spent 15 minutes of [id number]-[id number] sedation time with the patient. CONTRAST: 10 [...] sterile drape. Prior to the procedure, the powerplant operator and engineer third assistant performed hand hygiene and wore hat, mask, sterile gown, and sterile gloves during the entire procedure. PROCEDURE: ?? Using real-time sonographic guidance, a 22 gauge needle was inserted into the collecting system, and an antegrade pyelogram was performed. An AccuStick set was then placed, and a 10 Anguillan nephrostomy tube was placed in the renal pelvis. A post placement nephrostogram was performed. The catheter was sutured to the skin and placed to gravity bag drainage. FINDINGS: Ultrasound imaging demonstrates [id number] hydronephrosis. Post nephrostomy tube placement imaging demonstrates good positioning of the tube within the renal pelvis. Procedure Note Savannah Chang MD - 07/15/2024 DATE: 07/15/2024 PROCEDURE: ANTEGRADE PYELOGRAM AND PERCUTANEOUS NEPHROSTOMY 1. Ultrasound-guided access of the left intrarenal collecting system. A permanent image was stored. 2. Antegrade pyelography. 3. Percutaneous nephrostomy tube placement. 4. Moderate sedation. INTERVENTIONAL RADIOLOGIST: Savannah Chang MD INDICATION: 28-year-old female noted to have [...] observer. The physician spent 15 minutes of zojw-pl-[id number] sedation time with the patient. CONTRAST: 10 [...] sterile drape. Prior to the procedure, the powerplant operator and engineer third assistant performed hand hygiene and wore hat, mask, sterile gown, and sterile gloves during the entire procedure. PROCEDURE: Using real-time sonographic guidance, a 22 gauge needle was inserted into the collecting system, and an antegrade pyelogram was performed. An AccuStick set was then placed, and a 10 Anguillan nephrostomy tube was placed in the renal pelvis. A post placement nephrostogram was performed. The catheter was sutured to the skin and placed to gravity bag drainage. FINDINGS: Ultrasound imaging demonstrates [id number] hydronephrosis. Post nephrostomy tube placement imaging demonstrates good positioning of the tube within the renal pelvis. IMPRESSION: 1. Successful 10 Anguillan left nephrostomy tube placement. PLAN: Nephrostomy tube to gravity drain. SAVANNAH CHANG MD Savannah Chang MD [facility] IR ORDERABLES Final Resul t documented in this encounter Visit Diagnoses Diagnosis Sepsis without acute organ dysfunction, due to unspecified organism (H)- Primary Sepsis (H) documented in this encounter Administered Medications Inactive Administered Medications - up to 3 most recent administrations Medication Order MAR Action Action Date Dose Rate Site acetaminophen (TYLENOL) Suppository 650 mg 650 mg, Rectal, EVERY 4 HOURS PRN, mild pain, other, and adjunct with moderate or severe pain or per patient request, Starting on 07/14/24 at 2127, Alternate with ibuprofen if ordered. Maximum acetaminophen dose from all sources = 75 mg/kg/day not to exceed 4 grams/day. acetaminophen (TYLENOL) tablet 650 mg 650 mg, Oral, EVERY 4 HOURS PRN, mild pain, other, and adjunct with moderate or severe pain or per patient request, Starting on 07/14/24 at 2127, Alternate with ibuprofen if ordered. Maximum acetaminophen dose from all sources = 75 mg/kg/day not to exceed 4 grams/day. $Given 07/18/2024 9:22 AM PUBLIC POLICY ANALYST 650 mg $Given 07/18/2024 4:19 AM PUBLIC POLICY ANALYST 650 mg $Given 07/17/2024 11:46 PM PUBLIC POLICY ANALYST 650 mg amoxicillin (AMOXIL) capsule 1,000 mg Routine, 1,000 mg, Oral, EVERY 8 HOURS SCHEDULED, First dose on Mon07/17/24 at 1400, Indications: Urinary Tract InfectionIndications:Urinary Tract Infection $Given 07/18/2024 1:00 PM PUBLIC POLICY ANALYST 1,000 mg $Given 07/18/2024 6:09 AM PUBLIC POLICY ANALYST 1,000 mg $Given 07/17/2024 9:58 PM PUBLIC POLICY ANALYST 1,000 mg cefTRIAXone (ROCEPHIN) 2 g vial to attach to NS 100 ml bag for ADULTS or NS 50 ml bag for PEDS Routine, 2 g, Intravenous, EVERY 24 HOURS, First dose on Mon07/14/24 at 2200, Indications: Sepsis, Urinary Tract InfectionIndications:Sepsis,Urinary Tract Infection $New Bag 07/16/2024 11:56 PM PUBLIC POLICY ANALYST 2 g $New Bag 07/15/2024 9:31 PM PUBLIC POLICY ANALYST 2 g $New Bag 07/14/2024 10:28 PM PUBLIC POLICY ANALYST 2 g fentaNYL (PF) (SUBLIMAZE) injection 25-50 mcg 25-50 mcg, Intravenous, EVERY 5 MIN PRN, severe pain, If inadequate response may repeat 25 mcg IV slowly every 5 min PRN severe pain; when verbally requested by provider., Administer over 2 Minutes, Starting on 07/14/24 at 2345, Doses can be exceeded under direct oversight of patient by physician., IR Intra-procedure $Given 07/15/2024 12:03 AM CS T 25 mcg $Given 07/14/2024 11:58 PM PUBLIC POLICY ANALYST 50 mcg $Given 07/14/2024 11:51 PM PUBLIC POLICY ANALYST 50 mcg iopamidol (ISOVUE-300) IV solution 61% 30 mL 30 mL, Other, ONCE, On 07/15/24 at 0000, For 1 dose, Supplied and administered by Radiology., IR Intra-procedure $Given 07/15/2024 12:12 AM PUBLIC POLICY ANALYST 10 mLs iron sucrose (VENOFER) 300 mg in sodium chloride 0.9 % 290 mL intermittent infusion 300 mg, Intravenous, Administer over 90 Minutes, at 193.3 mL/hr, DAILY, First dose on Mon07/17/24 at 1000, For 2 doses $New Bag 07/18/2024 9:59 AM PUBLIC POLICY ANALYST 300 mg 193.3 mL/h r $New Bag 07/17/2024 10:27 AM PUBLIC POLICY ANALYST 300 mg 193.3 mL/hr lidocaine 1 % injection 1-30 mL 1-30 mL, Subcutaneous, ONCE PRN, local anesthetic, Starting on Mon07/14/24 at 2354, For 1 dose, Dose may be into smaller doses dependent upon the procedure when ordered by provider during the procedure., IR Intra-procedure $Given by Other 07/14/2024 11:55 PM PUBLIC POLICY ANALYST 18 mLs magnesium hydroxide (MILK OF MAGNESIA) suspension 15-30 mL 15-30 mL, Oral, DAILY PRN, constipation, Starting on Mon07/16/24 at 1043, Hold for loose stools. naloxone (NARCAN) injection 0.2 mg 0.2 mg, Intravenous, EVERY 2 MIN PRN, opioid reversal, Starting on Mon07/14/24 at 2134, Administer intravenous route when available and notify provider when administered. For unintended sedation or respiratory depression if all of the below criteria are met: ~ respiratory rate LESS than or EQUAL to 8. ~SaO2 less than 92% and or/end-tidal CO2 is greater than 50. ~ the patient is receiving an opioid, has unintended sedations assessed as RASS (-3), and is currently not on mechanical ventilation. RASS scale moderate (-3) is movement or eye opening to voice but no eye contact. Patient Monitoring Once the patient has demonstrated a response to the naloxone, continue to monitor respiratory rate, depth, oxygen saturation and end-tidal CO2 (if available) every 15 minutes x 2, then every 30 minutes x 2, then every 1 hour x 1 after each naloxone dose. Consider transfer to ICU if patient respiratory parameters have not improved after 4 naloxone doses. naloxone (NARCAN) injection 0.2 mg 0.2 mg, Intramuscular, EVERY 2 MIN PRN, opioid reversal, Starting on Mon07/14/24 at 2134, Administer intramuscular if an intravenous route is not available and notify provider when administered. For unintended sedation or respiratory depression if all of the below criteria are met: ~ respiratory rate LESS than or EQUAL to 8. ~SaO2 less than 92% and or/end-tidal CO2 is greater than 50. ~ the patient is receiving an opioid, has unintended sedations assessed as RASS (-3), and is currently not on mechanical ventilation. RASS scale moderate (-3) is movement or eye opening to voice but no eye contact. Patient Monitoring Once the patient has demonstrated a response to the naloxone, continue to monitor respiratory rate, depth, oxygen saturation and end-tidal CO2 (if available) every 15 minutes x 2, then every 30 minutes x 2, then every 1 hour x 1 after each naloxone dose. Consider transfer to ICU if patient respiratory parameters have not improved after 4 naloxone doses. naloxone (NARCAN) injection 0.4 mg 0.4 mg, Intravenous, EVERY 2 MIN PRN, opioid reversal, Starting on Mon07/14/24 at 2133, Administer intravenous route when available and notify provider when administered. For unintended sedation or respiratory depression if all of the below criteria are met: ~ respiratory rate LESS than or EQUAL to 8. ~ SaO2 less than 92% and or/end-tidal CO2 is greater than 50. ~ the patient is receiving an opioid, has unintended sedation assessed as RASS (-4) or (-5) and patient is currently not on mechanical ventilation. RASS scale (-4) is deep sedation with no response to voice but movement or eye opening to physical stimulation. RASS scale (-5) is unarousable. Patient Monitoring Once the patient has demonstrated a response to the naloxone, continue to monitor respiratory rate, depth, oxygen saturation and end-tidal CO2 (if available) every 15 minutes x 2, then every 30 minutes x 2, then every 1 hour x 1 after each naloxone dose. Consider transfer to ICU if patient respiratory parameters have not improved after 4 naloxone doses. naloxone (NARCAN) injection 0.4 mg 0.4 mg, Intramuscular, EVERY 2 MIN PRN, opioid reversal, Starting on 07/14/24 at 2133, Administer intramuscular if an intravenous route is not available and notify provider when administered. For unintended sedation or respiratory depression if all of the below criteria are met: ~ respiratory rate LESS than or EQUAL to 8. ~ SaO2 less than 92% and or/end-tidal CO2 is greater than 50. ~ the patient is receiving an opioid, has unintended sedation assessed as RASS (-4) or (-5) and patient is currently not on mechanical ventilation. RASS scale (-4) is deep sedation with no response to voice but movement or eye opening to physical stimulation. RASS scale (-5) is unarousable. Patient Monitoring Once the patient has demonstrated a response to the naloxone, continue to monitor respiratory rate, depth, oxygen saturation and end-tidal CO2 (if available) every 15 minutes x 2, then every 30 minutes x 2, then every 1 hour x 1 after each naloxone dose. Consider transfer to ICU if patient respiratory parameters have not improved after 4 naloxone doses. ondansetron (ZOFRAN ODT) ODT tab 4 mg 4 mg, Oral, EVERY 6 HOURS PRN, Nausea and Vomiting, Starting on Mon07/14/24 at 2132, Do not push through foil backing: PEEL BACK foil and GENTLY remove. Place on tongue immediately. Administration with liquid is unnecessary. With dry hands, peel back foil backing and gently remove tablet. Do not push oral disintegrating tablet through foil backing. Administer immediately on tongue and oral disintegrating tablet dissolves in seconds, then swallow with saliva. Liquid not required. ondansetron (ZOFRAN) injection 4 mg 4 mg, Intravenous, EVERY 6 HOURS PRN, nausea, vomiting, Administer over 2-5 Minutes, Starting on Mon07/14/24 at 2132 polyethylene glycol (MIRALAX) Packet 17 g 17 g, Oral, DAILY, First dose on Mon07/15/24 at 1730, 1 Packet = 17 grams. Mix each gram with at least 1/2 ounce (15 mL) of water - 8 ounces for 17 g dose, 4 ounces for 8.5 g dose, 2 ounces for 4 g dose. Follow with the same volume of water. Hold for loose stools unless being administered as part of a bowel prep regimen or bowel clean out. $Given 07/18/2024 9:47 AM PUBLIC POLICY ANALYST 17 g $Given 07/16/2024 8:02 AM PUBLIC POLICY ANALYST 17 g $Given 07/15/2024 6:52 PM PUBLIC POLICY ANALYST 17 g multivitamin w/iron per tablet 1 tablet 1 tablet, Oral, DAILY, First dose on 07/14/24 at 2330 $Given 07/18/2024 9:47 AM PUBLIC POLICY ANALYST 1 tablet $Given 07/17/2024 8:25 AM PUBLIC POLICY ANALYST 1 tablet $Given 07/16/2024 8:02 AM PUBLIC POLICY ANALYST 1 tablet senna-docusate (SENOKOT-S/PERICOLACE) 8.6-50 MG per tablet 1 tablet 1 tablet, Oral, 2 TIMES DAILY PRN, constipation, Starting on 07/14/24 at 2128, If no bowel movement in 24 hours, increase to 2 tablets by mouth. IF more than 1 constipation PRN medication is ordered, administer step-sommer as indicated, moving to the next step ONLY if prior step ineffective. Step 1: senna-docusate (SENOKOT-S; PERICOLACE) OR bisacodyl (DULCOLAX) EC tablet Step 2: polyethylene glycol (MIRALAX/GLYCOLAX) Step 3: bisacodyl (DULCOLAX) suppository Step 4: enema Hold for loose stools. $Given 07/14/2024 10:27 PM PUBLIC POLICY ANALYST 1 tablet senna-docusate (SENOKOT-S/PERICOLACE) 8.6-50 MG per tablet 2 tablet 2 tablet, Oral, 2 TIMES DAILY PRN, constipation, Starting on 07/14/24 at 2128, IF more than 1 constipation PRN medication is ordered, administer step-sommer as indicated, moving to the next step ONLY if prior step ineffective. Step 1: senna-docusate (SENOKOT-S; PERICOLACE) OR bisacodyl (DULCOLAX) EC tablet Step 2: polyethylene glycol (MIRALAX/GLYCOLAX) Step 3: bisacodyl (DULCOLAX) suppository Step 4: enema Hold for loose stools. $Given 07/15/2024 10:06 AM PUBLIC POLICY ANALYST 2 tabl ets senna-docusate (SENOKOT-S/PERICOLACE) 8.6-50 MG per tablet 2 tablet 2 tablet, Oral, 2 TIMES DAILY, First dose on 07/15/24 at 1100, Hold for loose stools. $Given 07/18/2024 9:47 AM PUBLIC POLICY ANALYST 2 tablets $Given 07/16/2024 8:02 AM PUBLIC POLICY ANALYST 2 tablets $Given 07/15/2024 9:34 PM PUBLIC POLICY ANALYST 2 tablets simethicone (MYLICON) chewable tablet 80 mg 80 mg, Oral, EVERY 6 HOURS PRN, cramping, Starting on 07/14/24 at 2307 sodium chloride (PF) 0.9% PF flush 3 mL 3 mL, Intracatheter, EVERY 8 HOURS, First dose on Mon07/14/24 at 2200, to lock peripheral IV dormant line $Given 07/18/2024 1:00 PM PUBLIC POLICY ANALYST 3 mLs $Given 07/18/2024 6:09 AM PUBLIC POLICY ANALYST 3 mLs $Given 07/17/2024 9:58 PM PUBLIC POLICY ANALYST 3 mLs sodium chloride (PF) 0.9% PF flush 3 mL 3 mL, Intracatheter, EVERY 1 MIN PRN, line flush, other, to ensure patency or to lock dormant line, Starting on Mon07/14/24 at 2128 $Given 07/18/2024 9:47 AM PUBLIC POLICY ANALYST 3 mLs sodium chloride 0.9 % infusion at 125 mL/hr, Intravenous, CONTINUOUS, Starting on Mon07/14/24 at 2200, Until Mon07/16/24 at 0819 Rate/Dose Verify 07/16/2024 7:56 AM PUBLIC POLICY ANALYST 125 mL/hr $New Bag 07/15/2024 6:26 PM PUBLIC POLICY ANALYST 125 mL/hr $New 07/15/2024 8:35 AM PUBLIC POLICY ANALYST 125 mL/hr sodium chloride 0.9 % infusion at 75 mL/hr, Intravenous, CONTINUOUS, Starting on Mon07/16/24 at 0830, Until Mon07/17/24 at 0829 $New 07/16/2024 11:56 PM PUBLIC POLICY ANALYST 75 mL/hr Rate/Dose Verify 07/16/2024 8:25 AM PUBLIC POLICY ANALYST 75 mL/h r sodium chloride 0.9% BOLUS 1,000 mL Intravenous, 1,000 mL, ONCE, at 500 mL/hr, Administer over 2 Hours, On Mon07/15/24 at 0500, For 1 dose $New 07/15/2024 5:12 AM PUBLIC POLICY ANALYST 1,000 mLs 500 mL/hr tamsulosin (FLOMAX) capsule 0.4 mg 0.4 mg, Oral, DAILY, First dose on Mon07/16/24 at 1100, Administer 30 minutes after the same meal each day. Capsules should be swallowed whole; do not crush chew or open. $Given 07/18/2024 9:47 AM PUBLIC POLICY ANALYST 0.4 mg $Given 07/17/2024 8:25 AM PUBLIC POLICY ANALYST 0.4 mg $Given 07/16/2024 11:36 AM PUBLIC POLICY ANALYST 0.4 mg documented in this encounter Active and Recently Administered Medications Times are shown in PUBLIC POLICY ANALYST. Scheduled Medication Order 07/16/2024 07/17/2024 07/18/2024 amoxicillin (AMOXIL) capsule 1,000 mg Routine, 1,000 mg, Oral, EVERY 8 HOURS SCHEDULED, First dose on Mon07/17/24 at 1400, Indications: Urinary Tract Infection 1351 ($Given - Provider: Jazmine Marcus, RN)2158 ($Given - Provider: Deedee Alvarenga, RN) 0609 ($Given - Provider: Deedee Alvarenga, RN)1300 ($Given - Provider: Vinita Cabello, RN) cefTRIAXone (ROCEPHIN) 2 g vial to attach to NS 100 ml bag for ADULTS or NS 50 ml bag for PEDS (CANCELED) Routine, 2 g, Intravenous, EVERY 24 HOURS, First dose on Mon07/14/24 at 2200, Indications: Sepsis, Urinary Tract Infection 2356 ($New Bag - Provider: Jeffrey Frausto RN) iron sucrose (VENOFER) 300 mg in sodium chloride 0.9 % 290 mL intermittent infusion (COMPLETED) 300 mg, Intravenous, Administer over 90 Minutes, at 193.3 mL/hr, DAILY, First dose on Mon07/17/24 at 1000, For 2 doses 1027 ($New Bag - Provider: Jazmine Marcus RN) 0959 ($New Bag - Provider: Vinita Cabello, YAZAN) polyethylene glycol (MIRALAX) Packet 17 g 17 g, Oral, DAILY, First dose on Mon07/15/24 at 1730, 1 Packet = 17 grams. Mix each gram with at least 1/2 ounce (15 mL) of water - 8 ounces for 17 g dose, 4 ounces for 8.5 g dose, 2 ounces for 4 g dose. Follow with the same volume of water. Hold for loose stools unless being administered as part of a bowel prep regimen or bowel clean out. 0802 ($Given - Provider: Jackeline Shaffer RN) 0905 (Not Given - Provider: Jazmine Marcus RN - Reason: Order parameters not met) 0947 ($Given - Provider: Vinita Cabello, YAZAN) multivitamin w/iron per tablet 1 tablet 1 tablet, Oral, DAILY, First dose on Mon07/14/24 at 2330 0802 ($Given - Provider: Jackeline Shaffer RN) 0825 ($Given - Provider: Jazmine Marcus RN) 0947 ($Given - Provider: Vinita Cabello RN) senna-docusate (SENOKOT-S/PERICOLACE) 8.6-50 MG per tablet 2 tablet 2 tablet, Oral, 2 TIMES DAILY, First dose on Mon07/15/24 at 1100, Hold for loose stools. 0802 ($Given - Provider: Jackeline Shaffer RN)2203 (Not Given - Provider: Jeffrey Frausto RN - Reason: Order parameters not met - Comment: pt had loose stools) 0905 (Not Given - Provider: Jazmine Marcus RN - Reason: Order parameters not met)2106 (Not Given - Provider: Deedee Alvarenga RN - Reason: Patient/family refused) 0947 ($Given - Provider: Vinita Cabello RN) sodium chloride (PF) 0.9% PF flush 3 mL 3 mL, Intracatheter, EVERY 8 HOURS, First dose on Mon07/14/24 at 2200, to lock peripheral IV dormant line 0630 (Not Given - Provider: Jeffrey Frausto RN - Reason: IV Infusing)1409 ($Given - Provider: Jackeline Shaffer RN) 0001 ($Given - Provider: Jeffrey Frausto RN)0703 (Not Given - Provider: Jeffrey Frausto RN - Reason: IV Infusing)1352 ($Given - Provider: Jazmine Marcus RN)2158 ($Given - Provider: Deedee Alvarenga RN) 0609 ($Given - Provider: Deedee Alvarenga RN)1300 ($Given - Provider: Vinita Cabello RN) tamsulosin (FLOMAX) capsule 0.4 mg 0.4 mg, Oral, DAILY, First dose on Mon07/16/24 at 1100, Administer 30 minutes after the same meal each day. Capsules should be swallowed whole; do not crush chew or open. 1136 ($Given - Provider: Jackeline Shaffer RN) 0825 ($Given - Provider: Jazmine Marcus RN) 0947 ($Given - Provider: Vinita Cabello RN) Continuous Medication Order 07/16/2024 07/17/2024 07/18/2024 sodium chloride 0.9 % infusion (CANCELED) at 125 mL/hr, Intravenous, CONTINUOUS, Starting on Mon07/14/24 at 2200, Until Mon07/16/24 at 0819 0756 (Rate/Dose Verify - Provider: Jackeline Shaffer, RN) sodium chloride 0.9 % infusion (CANCELED) at 75 mL/hr, Intravenous, CONTINUOUS, Starting on Mon07/16/24 at 0830, Until Mon07/17/24 at 0829 0825 (Rate/Dose Verify - Provider: Jackeline Shaffer, RN)2356 ($New Bag - Provider: Jeffrey Frausto RN) PRN Medication Order 07/16/2024 07/17/2024 07/18/2024 acetaminophen (TYLENOL) Suppository 650 mg(Linked Group 1) 650 mg, Rectal, EVERY 4 HOURS PRN, mild pain, other, and adjunct with moderate or severe pain or per patient request, Starting on Mon07/14/24 at 2128, Alternate with ibuprofen if ordered. Maximum acetaminophen dose from all sources = 75 mg/kg/day not to exceed 4 grams/day. 0136 (See Alternative - Provider: Jeffrey Frausto RN)0555 (See Alternative - Provider: Jeffrey Frausto RN)1012 (See Alternative - Provider: Jackeline Shaffer RN)1450 (See Alternative - Provider: Jackeline Shaffer RN)1853 (See Alternative - Provider: Jackeline Shaffer RN)2244 (See Alternative - Provider: Jeffrey Frausto RN) 0239 (See Alternative - Provider: Jeffrey Frausto RN)0702 (See Alternative - Provider: Jeffrey Frausto RN)1132 (See Alternative - Provider: Jazmine Marcus, YAZAN)1537 (See Alternative - Provider: Jazmine Marcus, YAZAN)1944 (See Alternative - Provider: Deedee Alvarenga, YAZAN)2346 (See Alternative - Provider: Deedee Alvarenga, YAZAN) 0419 (See Alternative - Provider: Deedee Alvarenga, YAZAN)0922 (See Alternative - Provider: Chayito [place] Mlodozyniec, RN) acetaminophen (TYLENOL) tablet 650 mg(Linked Group 1) 650 mg, Oral, EVERY 4 HOURS PRN, mild pain, other, and adjunct with moderate or severe pain or per patient request, Starting on 07/14/24 at 8, Alternate with ibuprofen if ordered. Maximum acetaminophen dose from all sources = 75 mg/kg/day not to exceed 4 grams/day. 0136 ($Given - Provider: Jeffrey Frausto RN)0555 ($Given - Provider: Jeffrey Frausto RN)1012 ($Given - Provider: Jackeline Shaffer RN)1450 ($Given - Provider: Jackeline Shaffer RN)1853 ($Given - Provider: Jackeline Shaffer RN)2244 ($Given - Provider: Jeffrey Frausto RN) 0239 ($Given - Provider: Jeffrey Frausto RN)0702 ($Given - Provider: Jeffrey Frausto RN)1132 ($Given - Provider: Jazmine Marcus RN)1537 ($Given - Provider: Jazmine Marcus RN)1944 ($Given - Provider: Deedee Alvarenga RN)2346 ($Given - Provider: Deedee Alvarenga RN) 0419 ($Given - Provider: Deedee Alvarenga RN)0922 ($Given - Provider: Chayito Morales RN) calcium carbonate (TUMS) chewable tablet 1,000 mg 1,000 mg, Oral, 4 TIMES DAILY PRN, heartburn, Starting on 07/14/24 at 2128 HYDROmorphone (DILAUDID) injection 0.2 mg 0.2 mg, Intravenous, EVERY 2 HOURS PRN, moderate pain, IF patient cannot take oral opioid OR IF pain not managed with non-pharmacological, non-opioid, or oral opioid interventions if ordered, Starting on 07/14/24 at 2130, May use concomitant with non-opioid analgesics. HYDROmorphone (DILAUDID) injection 0.4 mg 0.4 mg, Intravenous, EVERY 2 HOURS PRN, severe pain, IF patient cannot take oral opioid OR IF pain not managed with non-pharmacological, non-opioid, or oral opioid interventions if ordered, Starting on 07/14/24 at 2130, May use concomitant with non-opioid analgesics. lidocaine (LMX4) cream Topical, EVERY 1 HOUR PRN, pain, with VAD insertion, Starting on Mon07/14/24 at 2127, Apply at least 30 minutes prior to VAD insertion in divided doses as needed for size of site for insertion. MAX Dose: 2.5 g (?? of 5 g tube) Do NOT give if patient has a history of allergy to any local anesthetic or any marcy product. Do NOT use both lidocaine intradermal/subcutaneous injection and the lidocaine cream on the same site. lidocaine 1 % 0.1-1 mL 0.1-1 mL, Other, EVERY 1 HOUR PRN, mild pain with VAD insertion, Starting on 07/14/24 at 8, MAX dose 1 mL subcutaneous OR intradermal along the side of the vein in divided doses as needed for VAD insertion. Do NOT give if patient has a history of allergy to any local anesthetic or any marcy product. Do NOT use both lidocaine intradermal/subcutaneous injection and the lidocaine cream on the same site. magnesium hydroxide (MILK OF MAGNESIA) suspension 15-30 mL 15-30 mL, Oral, DAILY PRN, constipation, Starting on Mon07/16/24 at 1043, Hold for loose stools. naloxone (NARCAN) injection 0.2 mg(Linked Group 2) 0.2 mg, Intravenous, EVERY 2 MIN PRN, opioid reversal, Starting on Mon07/14/24 at 2133, Administer intravenous route when available and notify provider when administered. For unintended sedation or respiratory depression if all of the below criteria are met: ~ respiratory rate LESS than or EQUAL to 8. ~SaO2 less than 92% and or/end-tidal CO2 is greater than 50. ~ the patient is receiving an opioid, has unintended sedations assessed as RASS (-3), and is currently not on mechanical ventilation. RASS scale moderate (-3) is movement or eye opening to voice but no eye contact. Patient Monitoring Once the patient has demonstrated a response to the naloxone, continue to monitor respiratory rate, depth, oxygen saturation and end-tidal CO2 (if available) every 15 minutes x 2, then every 30 minutes x 2, then every 1 hour x 1 after each naloxone dose. Consider transfer to ICU if patient respiratory parameters have not improved after 4 naloxone doses. naloxone (NARCAN) injection 0.2 mg(Linked Group 2) 0.2 mg, Intramuscular, EVERY 2 MIN PRN, opioid reversal, Starting on 07/14/24 at 2134, Administer intramuscular if an intravenous route is not available and notify provider when administered. For unintended sedation or respiratory depression if all of the below criteria are met: ~ respiratory rate LESS than or EQUAL to 8. ~SaO2 less than 92% and or/end-tidal CO2 is greater than 50. ~ the patient is receiving an opioid, has unintended sedations assessed as RASS (-3), and is currently not on mechanical ventilation. RASS scale moderate (-3) is movement or eye opening to voice but no eye contact. Patient Monitoring Once the patient has demonstrated a response to the naloxone, continue to monitor respiratory rate, depth, oxygen saturation and end-tidal CO2 (if available) every 15 minutes x 2, then every 30 minutes x 2, then every 1 hour x 1 after each naloxone dose. Consider transfer to ICU if patient respiratory parameters have not improved after 4 naloxone doses. naloxone (NARCAN) injection 0.4 mg(Linked Group 2) 0.4 mg, Intravenous, EVERY 2 MIN PRN, opioid reversal, Starting on Mon07/14/24 at 4, Administer intravenous route when available and notify provider when administered. For unintended sedation or respiratory depression if all of the below criteria are met: ~ respiratory rate LESS than or EQUAL to 8. ~ SaO2 less than 92% and or/end-tidal CO2 is greater than 50. ~ the patient is receiving an opioid, has unintended sedation assessed as RASS (-4) or (-5) and patient is currently not on mechanical ventilation. RASS scale (-4) is deep sedation with no response to voice but movement or eye opening to physical stimulation. RASS scale (-5) is unarousable. Patient Monitoring Once the patient has demonstrated a response to the naloxone, continue to monitor respiratory rate, depth, oxygen saturation and end-tidal CO2 (if available) every 15 minutes x 2, then every 30 minutes x 2, then every 1 hour x 1 after each naloxone dose. Consider transfer to ICU if patient respiratory parameters have not improved after 4 naloxone doses. naloxone (NARCAN) injection 0.4 mg(Linked Group 2) 0.4 mg, Intramuscular, EVERY 2 MIN PRN, opioid reversal, Starting on 07/14/24 at 2134, Administer intramuscular if an intravenous route is not available and notify provider when administered. For unintended sedation or respiratory depression if all of the below criteria are met: ~ respiratory rate LESS than or EQUAL to 8. ~ SaO2 less than 92% and or/end-tidal CO2 is greater than 50. ~ the patient is receiving an opioid, has unintended sedation assessed as RASS (-4) or (-5) and patient is currently not on mechanical ventilation. RASS scale (-4) is deep sedation with no response to voice but movement or eye opening to physical stimulation. RASS scale (-5) is unarousable. Patient Monitoring Once the patient has demonstrated a response to the naloxone, continue to monitor respiratory rate, depth, oxygen saturation and end-tidal CO2 (if available) every 15 minutes x 2, then every 30 minutes x 2, then every 1 hour x 1 after each naloxone dose. Consider transfer to ICU if patient respiratory parameters have not improved after 4 naloxone doses. ondansetron (ZOFRAN ODT) ODT tab 4 mg(Linked Group 3) 4 mg, Oral, EVERY 6 HOURS PRN, Nausea and Vomiting, Starting on 07/14/24 at 2131, Do not push through foil backing: PEEL BACK foil and GENTLY remove. Place on tongue immediately. Administration with liquid is unnecessary. With dry hands, peel back foil backing and gently remove tablet. Do not push oral disintegrating tablet through foil backing. Administer immediately on tongue and oral disintegrating tablet dissolves in seconds, then swallow with saliva. Liquid not required. ondansetron (ZOFRAN) injection 4 mg(Linked Group 3) 4 mg, Intravenous, EVERY 6 HOURS PRN, nausea, vomiting, Administer over 2-5 Minutes, Starting on 07/14/24 at 2131 oxyCODONE (ROXICODONE) tablet 10 mg 10 mg, Oral, EVERY 4 HOURS PRN, severe pain, IF pain not managed with non-pharmacological and non-opioid interventions, Starting on 07/14/24 at 2128, May use concomitant with non-opioid analgesics. oxyCODONE (ROXICODONE) tablet 5 mg 5 mg, Oral, EVERY 4 HOURS PRN, moderate pain, IF pain not managed with non-pharmacological and non-opioid interventions, Starting on 07/14/24 at 2128, May use concomitant with non-opioid analgesics. simethicone (MYLICON) chewable tablet 80 mg 80 mg, Oral, EVERY 6 HOURS PRN, cramping, Starting on Sun /3/24 at 2307 sodium chloride (PF) 0.9% PF flush 3 mL 3 mL, Intracatheter, EVERY 1 MIN PRN, line flush, other, to ensure patency or to lock dormant line, Starting on Mon07/14/24 at 2128 0947 ($Given - Provider: Vinita Cabello RN) Linked Groups Order Group 1: acetaminophen (TYLENOL) tablet 650 mgJump to med 650 mg, Oral, EVERY 4 HOURS PRN, mild pain, other, and adjunct with moderate or severe pain or per patient request, Starting on Mon07/14/24 at 2128, Alternate with ibuprofen if ordered. Maximum acetaminophen dose from all sources = 75 mg/kg/day not to exceed 4 grams/day. Or acetaminophen (TYLENOL) Suppository 650 mgJump to med 650 mg, Rectal, EVERY 4 HOURS PRN, mild pain, other, and adjunct with moderate or severe pain or per patient request, Starting on Mon07/14/24 at 8, Alternate with ibuprofen if ordered. Maximum acetaminophen dose from all sources = 75 mg/kg/day not to exceed 4 grams/day. Group 2: naloxone (NARCAN) injection 0.2 mgJump to med 0.2 mg, Intravenous, EVERY 2 MIN PRN, opioid reversal, Starting on Mon07/14/24 at 2134, Administer intravenous route when available and notify provider when administered. For unintended sedation or respiratory depression if all of the below criteria are met: ~ respiratory rate LESS than or EQUAL to 8. ~SaO2 less than 92% and or/end-tidal CO2 is greater than 50. ~ the patient is receiving an opioid, has unintended sedations assessed as RASS (-3), and is currently not on mechanical ventilation. RASS scale moderate (-3) is movement or eye opening to voice but no eye contact. Patient Monitoring Once the patient has demonstrated a response to the naloxone, continue to monitor respiratory rate, depth, oxygen saturation and end-tidal CO2 (if available) every 15 minutes x 2, then every 30 minutes x 2, then every 1 hour x 1 after each naloxone dose. Consider transfer to ICU if patient respiratory parameters have not improved after 4 naloxone doses. Or naloxone (NARCAN) injection 0.4 mgJump to med 0.4 mg, Intravenous, EVERY 2 MIN PRN, opioid reversal, Starting on Mon07/14/24 at 2133, Administer intravenous route when available and notify provider when administered. For unintended sedation or respiratory depression if all of the below criteria are met: ~ respiratory rate LESS than or EQUAL to 8. ~ SaO2 less than 92% and or/end-tidal CO2 is greater than 50. ~ the patient is receiving an opioid, has unintended sedation assessed as RASS (-4) or (-5) and patient is currently not on mechanical ventilation. RASS scale (-4) is deep sedation with no response to voice but movement or eye opening to physical stimulation. RASS scale (-5) is unarousable. Patient Monitoring Once the patient has demonstrated a response to the naloxone, continue to monitor respiratory rate, depth, oxygen saturation and end-tidal CO2 (if available) every 15 minutes x 2, then every 30 minutes x 2, then every 1 hour x 1 after each naloxone dose. Consider transfer to ICU if patient respiratory parameters have not improved after 4 naloxone doses. Or naloxone (NARCAN) injection 0.2 mgJump to med 0.2 mg, Intramuscular, EVERY 2 MIN PRN, opioid reversal, Starting on Mon07/14/24 at 2133, Administer intramuscular if an intravenous route is not available and notify provider when administered. For unintended sedation or respiratory depression if all of the below criteria are met: ~ respiratory rate LESS than or EQUAL to 8. ~SaO2 less than 92% and or/end-tidal CO2 is greater than 50. ~ the patient is receiving an opioid, has unintended sedations assessed as RASS (-3), and is currently not on mechanical ventilation. RASS scale moderate (-3) is movement or eye opening to voice but no eye contact. Patient Monitoring Once the patient has demonstrated a response to the naloxone, continue to monitor respiratory rate, depth, oxygen saturation and end-tidal CO2 (if available) every 15 minutes x 2, then every 30 minutes x 2, then every 1 hour x 1 after each naloxone dose. Consider transfer to ICU if patient respiratory parameters have not improved after 4 naloxone doses. Or naloxone (NARCAN) injection 0.4 mgJump to med 0.4 mg, Intramuscular, EVERY 2 MIN PRN, opioid reversal, Starting on Mon07/14/24 at 2133, Administer intramuscular if an intravenous route is not available and notify provider when administered. For unintended sedation or respiratory depression if all of the below criteria are met: ~ respiratory rate LESS than or EQUAL to 8. ~ SaO2 less than 92% and or/end-tidal CO2 is greater than 50. ~ the patient is receiving an opioid, has unintended sedation assessed as RASS (-4) or (-5) and patient is currently not on mechanical ventilation. RASS scale (-4) is deep sedation with no response to voice but movement or eye opening to physical stimulation. RASS scale (-5) is unarousable. Patient Monitoring Once the patient has demonstrated a response to the naloxone, continue to monitor respiratory rate, depth, oxygen saturation and end-tidal CO2 (if available) every 15 minutes x 2, then every 30 minutes x 2, then every 1 hour x 1 after each naloxone dose. Consider transfer to ICU if patient respiratory parameters have not improved after 4 naloxone doses. Group 3: ondansetron (ZOFRAN) injection 4 mgJump to med 4 mg, Intravenous, EVERY 6 HOURS PRN, nausea, vomiting, Administer over 2-5 Minutes, Starting on 07/14/24 at 2132 Or ondansetron (ZOFRAN ODT) ODT tab 4 mgJump to med 4 mg, Oral, EVERY 6 HOURS PRN, Nausea and Vomiting, Starting on 07/14/24 at 2132, Do not push through foil backing: PEEL BACK foil and GENTLY remove. Place on tongue immediately. Administration with liquid is unnecessary. With dry hands, peel back foil backing and gently remove tablet. Do not push oral disintegrating tablet through foil backing. Administer immediately on tongue and oral disintegrating tablet dissolves in seconds, then swallow with saliva. Liquid not required. documented in this encounter Care Teams Obstetrician/Gynecologist Relationship Specialty Start Date End Date Deedee Castaneda PA-C PCP - General Family Practice 04/26/13 Ayleen Naik MD [address] [facility] [address] [place] [address] Hospitalist Endocrinology, Diabetes, and Metabolism 07/28/22 documented as of this encounter
--- OUTSIDE RECORDS SUMMARY | 2024-07-20 19:09 | XMS_ITS | Encounter Summary ---
Author Organization [facility] Address [address] [place] [address]. [place] [address] Care Team Providers Care Ship Cleaner Name Role Phone Deedee Castaneda PA-C Primary Care Provider [phone] Deedee Castaneda PA-C Unavailable Deedee Castaneda PA-C Unavailable [phone] Ayleen Naik MD Unavailable [phone] Ayleen Naik MD Unavailable [phone] Reason for Visit * Reason Onset Date Comments Patient Request 02/27/2017 Encounter Details Date Type Department Care Team (Late st Contact Info) Description 02/27/[address] [address] Deedee Castaneda PA-C [address] [place] [address] Patient Request Social History Tobacco [...] on filedocumented in this encounter Care Teams Ship Cleaner Relationship Specialty Start Date End Date Deedee Castaneda PA-C PCP - General Family Practice 04/26/13 Deedee Castaneda PA-C [address] [place] [address] PCP - Assigned PCP 02/26/17 11/13/18 Deedee Castaneda PA-C [address] [place] [address] Assigned PCP 02/26/17 03/06/21 Ayleen Naik MD [address] [id number] Hospitalist Endocrinology, Diabetes, and Metabolism 07/28/22 Ayleen Naik MD [address] [place] [address] [address] [place], [place] [address] Assigned Endocrinology Provider 10/08/22 05/02/24 documented as of this encounter
--- OUTSIDE RECORDS SUMMARY | 2024-07-20 19:09 | XMS_ITS ---
Author Organization [facility] Address [address] [place] [id number] Care Team Providers Care Manager Medical Name Role Phone Deedee Castaneda PA-C Primary Care Provider [phone] Ayleen Naik MD Unavailable [phone] Transitional Care Management Status:Enrolled (Active) Start date:07/19/2024 Enrollment date:07/20/2024 Continued Care and Services Coordination
--- OUTSIDE RECORDS SUMMARY | 2024-07-20 19:09 | XMS_ITS | Referral Summary ---
Author Organization [place] Address [address] [place] [address] Care Team Providers Care Hand Candy Molder Name Role Phone Deedee Castaneda PA-C Primary Care Provider [phone] Ayleen Naik MD Unavailable [phone] Encounters Date Type Department Care Team Description 07/14/2024 9:20 PM [employer] MACHINE OPERATOR - 07/18/2024 4:19 PM [employer] MACHINE OPERATOR Hospital Encounter [facility] General Surgery [address] [place] [address] Pool Chan MD Jungman, Robert James, MD Iqbal, Saima, MD Sepsis without acute organ dysfunction, due to unspecified organism (H) (Primary Dx) Discharge Disposition: Home or Self Care from Last 3 Months Allergies Active Allergy Reactions Criticality Noted Date [...] daily 100 tablet 3 10/28/19 16 2023 Discontinued(M ed Rec(No AVS / No eCancel)) ibuprofen (ADVIL/MOTRIN) 600 MG tabletIndicati ons:Post-op pain Take 1 tablet (600 mg) by mouth every 6 hours as needed for other (mild and/or inflammatory pain) 30 tablet 04/20/20 23 2023 Discontinued(M ed Rec(No AVS / No eCancel)) tamsulosin (FLOMAX) 0.4 MG capsule Take 0.4 mg by mouth daily. 07/12/20 24 2023 Discontinued Active Problems Problem Noted Date Diagnosed Date Sepsis 07/14/2024 (normal spontaneous vaginal delivery) 01/31 Labor and delivery, indication for care 01/30/20 Family history of Jacob thyroiditis 10/04/19 23 [...] Answer Date Recorded PHQ-2 Score 0 10/04/2022 [place] Depression Scale Answer Date Recorded Last EPDS [...] Answer Date Recorded Do you have housing? (Malikin g is defined as stable permanent housing and does not include staying ouside in a car, in a tent, in an abandoned building, in an overnight mcfp, or couch-surfing.) Yes 07/15/2024 Are you worried [...] Comments Blood Pressure 110/74 07/18/2024 11:52 AM [employer] MACHINE OPERATOR Pulse 88 07/18/2024 11:52 AM [employer] MACHINE OPERATOR Temperature 36.7 ??C (98 ??F) 07/18/2024 11:52 AM [employer] MACHINE OPERATOR Respiratory Rate 16 07/18/2024 11:52 AM [employer] MACHINE OPERATOR Oxygen Saturation 99% 07/18/2024 11:52 AM [employer] MACHINE OPERATOR Inhaled Oxygen Concentration - - Weight 64.4 kg (142 lb) 04/20/2023 9:36 AM CDT Height 162.6 cm (5' 4) 04/20/2023 9:36 AM CDT Body Mass Index 24.37 04/20/2023 9:36 AM CDT Plan of Treatment Not on file Procedures Procedure Name Priority Date/Time Associated Diagnosis Comments HEMOGLOBIN Routine 07/18/2024 11:12 AM [employer] MACHINE OPERATOR WBC COUNT Routine 07/18/2024 11:12 AM [employer] MACHINE OPERATOR CBC WITH PLATELETS Routine 07/17/2024 7: 41 AM [employer] MACHINE OPERATOR FOLATE Routine 07/16/2024 8:01 AM [employer] MACHINE OPERATOR CBC WITH PLATELETS Routine 07/16/2024 8: 01 AM [employer] MACHINE OPERATOR BASIC METABOLIC PANEL Routine 07/16/2024 8:01 AM [employer] MACHINE OPERATOR BLOOD CULTURE STAT 07/15/2024 4:05 PM [employer] MACHINE OPERATOR FERRITIN Add-On 07/15/2024 2:13 PM [employer] MACHINE OPERATOR IRON AND IRON BINDING CAPACITY Add-On 07/15/2024 2:13 PM [employer] MACHINE OPERATOR VITAMIN B12 Add-On 07/15/2024 2:13 PM [employer] MACHINE OPERATOR LACTIC ACID WHOLE BLOOD Timed 07/15/2024 2:13 PM [employer] MACHINE OPERATOR US OB < 14 WEEKS SINGLE-TRANSABDOMINAL Routine 07/15/2024 1:28 PM [employer] MACHINE OPERATOR LACTIC ACID WHOLE BLOOD Timed 07/15/2024 10:40 AM [employer] MACHINE OPERATOR PROCALCITONIN Add-On 07/15/2024 7:56 AM [employer] MACHINE OPERATOR HEPATIC FUNCTION PANEL Add-On 7:56 AM [employer] MACHINE OPERATOR BASIC METABOLIC PANEL Routine 07/15/2024 7:56 AM [employer] MACHINE OPERATOR CBC WITH PLATELETS & DIFFERENTIAL Routine 07/15/2024 6:00 AM [employer] MACHINE OPERATOR RBC AND PLATELET MORPHOLOGY Routine 07/15/2024 6:00 AM [employer] MACHINE OPERATOR CBC WITH PLATELETS AND DIFFERENTIAL Routine 07/15/2024 6:00 AM [employer] MACHINE OPERATOR LACTIC ACID WHOLE BLOOD STAT 07/15/2024 6:00 AM [employer] MACHINE OPERATOR URINE CULTURE Routine 07/15/2024 12:39 AM [employer] MACHINE OPERATOR IMAGING PROCEDURE NOTE Routine 12:14 AM [employer] MACHINE OPERATOR IR NEPHROSTOMY TUBE PLACEMENT LEFT STAT 07/15/2024 12:09 AM [employer] MACHINE OPERATOR HIV 1&2 ANTIBODY (EXTERNAL RESULT) Routine 07/18/2022 12:00 PM [employer] MACHINE OPERATOR CHLAMYDIA TRACHOMATIS PCR Routine 02/22/2018 1:40 PM CDT Screening examination for venereal disease HEPATITIS C ANTIBODY Routine 10/28/2015 9:20 AM [employer] MACHINE OPERATOR Screen for STD (sexually transmitted disease) from Last 3 Months or Most Recently Relevant to Health Maintenance Results * WBC count (07/18/2024 11:12 AM [employer] MACHINE OPERATOR) WBC Count 8.7 4.0 - 11.0 10e3/uL 07/18/2024 11:53 AM [employer] MACHINE OPERATOR LABORATORY Blood STRUCTURE OF LEFT HAND / Unknown Venipuncture / Unknown 07/18/2024 11:12 AM [employer] MACHINE OPERATOR 07/18/2024 11:48 AM [employer] MACHINE OPERATOR Karey Gonzalez MD LAB - BLOOD ORDERABLES Final Res ult LABORATORY [facility] Lab [address], [address], [place] [address], [facility] [phone] * (ABNORMAL) Hemoglobin (07/18/2024 11:12 AM [employer] MACHINE OPERATOR) Hemoglobin 10.6(L) 11.7 - 15.7 g/dL 07/18/2024 11:53 AM [employer] MACHINE OPERATOR LABORATORY Blood STRUCTURE OF LEFT HAND / Unknown Venipuncture / Unknown 07/18/2024 11:12 AM [employer] MACHINE OPERATOR 07/18/2024 11:48 AM [employer] MACHINE OPERATOR Karey Gonzalez MD LAB - BLOOD ORDERABLES Final Res ult LABORATORY [facility] Lab [address], [address], [place] [address], [facility] [phone] * (ABNORMAL) CBC with platelets (07/17/2024 7:41 AM [employer] MACHINE OPERATOR) Only the most recent of2 resultswithin the time period is included. WBC Count 12.0(H) 4.0 - 11.0 10e3/uL 07/17/2024 8:03 AM [facility] LABORATORY RBC Count 3.19(L) 3.80 - 5.20 10e6/uL 07/17/2024 8:03 AM [facility] LABORATORY Hemoglobin 9.8(L) 11.7 - 15.7 g/dL 07/17/2024 8:03 AM [facility] LABORATORY Hematocrit 27.5(L) 35.0 - 47.0 % 07/17/2024 8:03 AM [facility] LABORATORY MCV 86 78 - 100 fL 07/17/2024 8:03 AM [facility] LABORATORY MCH 30.7 26.5 - 33.0 pg 07/17/2024 8:03 AM [facility] LABORATORY MCHC 35.6 31.5 - 36.5 g/dL 07/17/2024 8:03 AM [facility] LABORATORY RDW 12.2 10.0 - 15.0 % 07/17/2024 8:03 AM [facility] LABORATORY Platelet Count 249 150 - 450 10e3/uL 07/17/2024 8:03 AM [facility] LABORATORY Blood STRUCTURE OF LEFT HAND / Unknown Venipuncture / Unknown 07/17/2024 7:41 AM [employer] MACHINE OPERATOR 07/17/2024 7:57 AM [employer] MACHINE OPERATOR us Karey Gonzalez MD LAB - BLOOD ORDERABLES Final Res ult Performing Organization Address [facility]/State/ZIP Co de Phone Number LABORATORY [facility] Acute Care Lab [address], [address] [place] [address], [facility] [phone] * Folate (07/16/2024 8:01 AM [employer] MACHINE OPERATOR) Pathologist [facility] [place] Folic Acid 17.4 4.6 - 34.8 ng/mL 07/16/2024 12:08 PM [employer] MACHINE OPERATOR U LABORATORY Blood STRUCTURE OF LEFT HAND / Unknown Venipuncture / Unknown 07/16/2024 8:01 AM [employer] MACHINE OPERATOR 07/16/2024 8:11 AM [employer] MACHINE OPERATOR us Karey Gonzalez MD LAB - BLOOD ORDERABLES Final Res ult UU LABORATORY [facility] [place] [facility] [address] [facility], [address] [place] [address] * (ABNORMAL) Basic metabolic panel (07/16/2024 8:01 AM [facility]) Only the most recent of2 resultswithin the time period is included. Sodium 137 135 - 145 mmol/L 07/16/2024 8:41 AM [facility] LABORATORY Potassium 3.5 3.4 - 5.3 mmol/L 07/16/2024 8:41 AM [facility] LABORATORY Chloride 105 98 - 107 mmol/L 07/16/2024 8:41 AM [facility] LABORATORY Carbon Dioxide (CO2) 18(L) 22 - 29 mmol/L 07/16/2024 8:41 AM [facility] LABORATORY Anion Gap 14 7 - 15 mmol/L 07/16/2024 8:41 AM [facility] LABORATORY Urea Nitrogen 4.6(L) 6.0 - 20.0 mg/dL 07/16/2024 8:41 AM [facility] LABORATORY Creatinine 0.45(L) 0.51 - 0.95 mg/dL 07/16/2024 8:41 AM [facility] LABORATORY GFR Estimate >90 >60 mL/min/1.7 3m2 07/16/2024 8:41 AM [facility] LABORATORY Comment:eGFR calculated us2020 CKD-EPI equation. Calcium 8.5(L) 8.8 - 10.4 mg/dL 07/16/2024 8:41 AM [facility] LABORATORY Comment:Reference intervals for this test were updated on 03/26/2024 to reflect our healthy population more accurately. There may be differences in the flagging of prior results with similar values performed with this method. Those prior results can be interpreted in the context of the updated reference intervals. Glucose 86 70 - 99 mg/dL 07/16/2024 8:41 AM [facility] LABORATORY Blood STRUCTURE OF LEFT HAND / Unknown Venipuncture / Unknown 07/16/2024 8:01 AM [employer] MACHINE OPERATOR 07/16/2024 8:10 AM [facility] Karey Gonzalez MD LAB - BLOOD ORDERABLES Final Res ult LABORATORY [facility] Care Lab [address], [address] [place] [address], [facility] [phone] * Blood Culture Hand, Left (07/15/2024 4:05 PM [employer] MACHINE OPERATOR) Culture No Growth 07/20/2024 7:01 PM [employer] MACHINE OPERATOR [facility] LABORATORY Blood STRUCTURE OF LEFT HAND / Unknown Venipuncture / Unknown 07/15/2024 4:05 PM [employer] MACHINE OPERATOR 07/15/2024 4:20 PM [employer] MACHINE OPERATOR Karey Gonzalez MD LAB - MICRO GENERAL ORDERABLES F inal Result Performing Organization Address City/[facility]/ZIP Co de Phone Number [facility] LABORATORY [facility] Inf. Diseases Diag. Lab [address] [facility], [address] [place] [address], [facility] * Lactic acid whole blood (07/15/2024 2:13 PM [employer] MACHINE OPERATOR) Only the most recent of3 resultswithin the time period is included. Lactic Acid 0.9 0.7 - 2.0 mmol/L 07/15/2024 2:37 PM [employer] MACHINE OPERATOR LABORATORY Blood STRUCTURE OF LEFT HAND / Unknown Venipuncture / Unknown 07/15/2024 2:13 PM [employer] MACHINE OPERATOR 07/15/2024 2:30 PM [employer] MACHINE OPERATOR Karey Gonzalez MD LAB - BLOOD ORDERABLES Final Res ult LABORATORY [facility] Care Lab [address], [address] [place] [address], [facility] [phone] * (ABNORMAL) Iron and iron binding capacity (07/15/2024 2:13 PM [employer] MACHINE OPERATOR) Iron 9(L) 37 - 145 ug/dL 07/15/2024 3:52 PM [employer] MACHINE OPERATOR LABORATORY Iron Binding Capacity 263 240 - 430 ug/dL 07/15/2024 3:52 PM [employer] MACHINE OPERATOR LABORATORY Iron Sat Index 3(L) 15 - 46 % 07/15/2024 3:52 PM [employer] MACHINE OPERATOR LABORATORY Blood STRUCTURE OF LEFT HAND / Unknown Venipuncture / Unknown 07/15/2024 2:13 PM [employer] MACHINE OPERATOR 07/15/2024 2:30 PM [employer] MACHINE OPERATOR Karey Gonzalez MD LAB - BLOOD ORDERABLES Final Res ult LABORATORY [facility] Acute Care Lab [address], [address] [place] [address], [facility] [phone] * Ferritin (07/15/2024 2:13 PM [employer] MACHINE OPERATOR) Ferritin 166 6 - 175 ng/mL 07/15/2024 11:07 PM [employer] MACHINE OPERATOR [facility] LABORATORY Blood STRUCTURE OF LEFT HAND / Unknown Venipuncture / Unknown 07/15/2024 2:13 PM [employer] MACHINE OPERATOR 07/15/2024 2:30 PM [employer] MACHINE OPERATOR Karey Gonzalez MD LAB - BLOOD ORDERABLES Final Res ult LABORATORY [facility] [place] [facility] [address], [address] [place] [address], [facility] * Vitamin B12 (07/15/2024 2:13 PM [employer] MACHINE OPERATOR) Vitamin B12 536 232 - 1,245 pg/mL 07/15/2024 11:07 PM [employer] MACHINE OPERATOR U LABORATORY Blood STRUCTURE OF LEFT HAND / Unknown Venipuncture / Unknown 07/15/2024 2:13 PM [employer] MACHINE OPERATOR 07/15/2024 2:30 PM [employer] MACHINE OPERATOR Karey Gonzalez MD LAB - BLOOD ORDERABLES Final Res ult LABORATORY [facility] [place] [facility] [address] [facility] [address], [address] [place] [address], [place] * US OB < 14 Weeks Single (07/15/2024 1:28 PM [employer] MACHINE OPERATOR) Anatomical Region Laterality Modality Abdomen/Pelvis Ultrasound Impressions 07/15/2024 5:11 PM [employer] MACHINE OPERATOR IMPRESSION: 1. Single living intrauterine gestation. 2. tachycardia with heart rate ranging from 192-207 bpm. MARIA A HOWELL MD SYSTEM ID: [id number] Narrative 07/15/2024 5:11 PM [employer] MACHINE OPERATOR US OB < 14 WEEKS SINGLE-TRANSABDOMINAL 07/15/2024 [...] bpm. MARIA A HOWELL MD SYSTEM ID: [id number] Karey Gonzalez MD [facility] US ORDERABLES Final Result * Procalcitonin (07/15/2024 7:56 AM [employer] MACHINE OPERATOR) Procalcitonin 0.42 <0.50 ng/mL 07/15/2024 8:52 AM [employer] MACHINE OPERATOR LABORATORY Comment: Interpretation and Recommendations <0.5 ng/mL: Systemic bacterial infection unlikely. Local bacterial infection is possible. 0.5-1.99 ng/mL: Systemic bacterial infection possible, but various other conditions are known to induce PCT as well. >=2.00 ng/mL: Systemic bacterial infection likely, unless other causes are known. Decision to start antibiotics should not be based on procalcitonin level alone. See Procalcitonin Guidance document for more details. [email or web address] Factors that may affect PCT levels (not [...] Unknown Venipuncture / Unknown 07/15/2024 7:56 AM [employer] MACHINE OPERATOR 07/15/2024 8:11 AM [employer] MACHINE OPERATOR us Karey Gonzalez MD LAB - BLOOD ORDERABLES Final Res ult LABORATORY [facility] Acute Care Lab [address], [address] [place] [address], [place] [phone] * Hepatic panel (07/15/2024 7:56 AM [employer] MACHINE OPERATOR) Protein Total 6.8 6.4 - 8.3 g/dL 07/15/2024 8:52 AM [facility] LABORATORY Albumin 3.6 3.5 - 5.2 g/dL 07/15/2024 8:52 AM [facility] LABORATORY Bilirubin Total 0.3 <=1.2 mg/dL 07/15/2024 8:52 AM [facility] LABORATORY Alkaline Phosphatase 77 40 - 150 U/L 07/15/2024 8:52 AM [facility] LABORATORY AST 20 0 - 45 U/L 07/15/2024 8:52 AM [facility] LABORATORY ALT 11 0 - 50 U/L 07/15/2024 8:52 AM [facility] LABORATORY Bilirubin Direct <0.20 0.00 - 0.30 mg/dL 07/15/2024 8:52 AM [facility] LABORATORY Blood STRUCTURE OF LEFT WRIST REGION / Unknown Venipuncture / Unknown 07/15/2024 7:56 AM [employer] MACHINE OPERATOR 07/15/2024 8:11 AM [employer] MACHINE OPERATOR Karey Gonzalez MD LAB - BLOOD ORDERABLES Final Res ult [facility] Lab [address], [address] [place] [address], [facility] [phone] * (ABNORMAL) RBC and Platelet Morphology (07/15/2024 6:00 AM [employer] MACHINE OPERATOR) [facility] RBC Morphology Confirmed RBC Indices 07/15/2024 7:37 AM [facility] LABORATORY Platelet Assessment Automated Count Confirmed. Platelet morphology is normal. Automated Count Confirmed. Platelet morphology is normal. CIERRA 07/15/2024 7:37 AM [facility] LABORATORY Toxic Neutrophils Present(A) None Seen CIERRA 07/15/2024 7:37 AM [facility] LABORATORY Blood BLOOD SPECIMEN / Unknown Venipuncture / Unknown 07/15/2024 6:00 AM [employer] MACHINE OPERATOR 07/15/2024 6:12 AM [employer] MACHINE OPERATOR Parveen Kwok MD LAB - BLOOD ORDERABLES F inal Result [facility] Lab [address], [address] [place] [address], [facility] [phone] * (ABNORMAL) CBC with platelets and differential (07/15/2024 6:00 AM [facility]) WBC Count 18.7(H) 4.0 - 11.0 10e3/uL 07/15/2024 7:37 AM [facility] LABORATORY RBC Count 3.24(L) 3.80 - 5.20 10e6/uL 07/15/2024 7:37 AM [facility] LABORATORY Hemoglobin 10.1(L) 11.7 - 15.7 g/dL 07/15/2024 7:37 AM [facility] LABORATORY Hematocrit 28.2(L) 35.0 - 47.0 % 07/15/2024 7:37 AM [facility] LABORATORY MCV 87 78 - 100 fL 07/15/2024 7:37 AM [facility] LABORATORY MCH 31.2 26.5 - 33.0 pg 07/15/2024 7:37 AM [facility] LABORATORY MCHC 35.8 31.5 - 36.5 g/dL 07/15/2024 7:37 AM [facility] LABORATORY RDW 12.0 10.0 - 15.0 % 07/15/2024 7:37 AM [facility] LABORATORY Platelet Count 211 150 - 450 10e3/uL 07/15/2024 7:37 AM [facility] LABORAT[facility] % Neutrophils 83 % 07/15/2024 7:37 AM [facility] LABORAT[facility] % Lymphocytes 3 % 07/15/2024 7:37 AM [facility] LABORAT[facility] % Monocytes 7 % 07/15/2024 7:37 AM [facility] LABORAT[facility] % Eosinophils 6 % 07/15/2024 7:37 AM [facility] LAB[facility]AT[facility] % Basophils 0 % 07/15/2024 7:37 AM [facility] LAB[facility]AT[facility] % Immature Granulocytes 1 % 07/15/2024 7:37 AM [facility] LABORATORY NRBCs per 100 WBC 0 <1 /100 024 7:37 AM [facility] LABORATORY Absolute Neutrophils 15.5(H) 1.6 - 8.3 10e3/uL 07/15/2024 7:37 AM [facility] LABORATORY Absolute Lymphocytes 0.6(L) 0.8 - 5.3 10e3/uL 07/15/2024 7:37 AM [employer] MACHINE OPERATOR LABORATORY Absolute Monocytes 1.3 0.0 - 1.3 10e3/uL 07/15/2024 7:37 AM [employer] MACHINE OPERATOR LABORATORY Absolute Eosinophils 1.1(H) 0.0 - 0.7 10e3/uL 07/15/2024 7:37 AM [employer] MACHINE OPERATOR LABORATORY Absolute Basophils 0.0 0.0 - 0.2 10e3/uL 07/15/2024 7:37 AM [employer] MACHINE OPERATOR LABORATORY Absolute Immature Granulocytes 0.1 <=0.4 10e3/uL 07/15/2024 7:37 AM [employer] MACHINE OPERATOR LABORATORY Absolute NRBCs 0.0 10e3/uL 07/15/2024 7:37 AM [employer] MACHINE OPERATOR LABORATORY Blood BLOOD SPECIMEN / Unknown Venipuncture / Unknown 07/15/2024 6:00 AM [employer] MACHINE OPERATOR 07/15/2024 6:12 AM [employer] MACHINE OPERATOR Parveen Kwok MD LAB - BLOOD ORDERABLES F inal Result LABORATORY [facility] Acute Care Lab [address], [address] [place] [address], [facility] [phone] * (ABNORMAL) Urine Culture Aerobic Bacterial (07/15/2024 12:39 AM [employer] MACHINE OPERATOR) Pathologist [facility] [place] Culture 10,000-50,000 CFU/mL Enterococcus faecalis(A) CIERRA 07/17/2024 10:30 PM [employer]OT[employer] MACHINE OPERATOR [facility] Culture 10,000-50,000 CFU/mL Enterococcus faecalis(A) 07/17/2024 10:30 PM [employer] MACHINE OPERATOR [facility] LABORAT[facility] Urine MID-STREAM URINE SPECIMEN / Unknown Non-blood Collection / Unknown 07/15/2024 12:39 AM [employer] MACHINE OPERATOR 07/15/2024 12:45 AM [employer] MACHINE OPERATOR Narrative Organism Antibiotic Method Susceptibility Enterococcus faecalis Ampicillin CIERRA <=2 ug/mL: Susceptible Enterococcus faecalis Vancomycin CIERRA 1 ug/mL: Susceptible Enterococcus faecalis Nitrofurantoin CIERRA <=16 ug/mL: Susceptible Enterococcus faecalis Ampicillin CIERRA <=2 ug/mL: Susceptible Enterococcus faecalis Vancomycin CIERRA 1 ug/mL: Susceptible Enterococcus faecalis Nitrofurantoin CIERRA <=16 ug/mL: Susceptible us Savannah German MD LAB - MICRO GENERAL ORDERABLE S Final Result [facility] LABORAT[facility] Inf. Diseases Diag. Lab [address] [facility], [address] [place] [address], [facility] * Imaging Procedure Note (07/15/2024 12:14 AM [employer] MACHINE OPERATOR) Narrative Savannah German MD - 07/15/2024 12:14 AM [employer] MACHINE OPERATOR Savannah German MD ? 07/15/2024 12:14 AM [facility] Procedure: Imaging Procedure Note Date/Time: [...] procedure a time out was called ?? [place] Protocol: the Joint Commission [place] Protocol was followed ?? Preparation: Patient was [...] for 1:1 monitoring during sedation: 0 min us Savannah German MD PROCEDURE/MINOR SURGICAL ORDE RABLES Final Result * IR Nephrostomy Tube Placement Left (07/15/2024 12:09 AM [employer] MACHINE OPERATOR) Anatomical Region Laterality Modality Abdomen/Pelvis Radio Fluoroscop y Impressions 07/15/2024 1:39 AM [employer] MACHINE OPERATOR IMPRESSION: ?? 1. Successful 10 British left nephrostomy tube placement. PLAN: Nephrostomy tube to gravity drain. SAVANNAH GERMAN MD Narrative 07/15/2024 1:39 AM [employer] MACHINE OPERATOR DATE: 07/15/2024 PROCEDURE: ANTEGRADE PYELOGRAM AND PERCUTANEOUS [...] observer. The physician spent 15 minutes of [id number] sedation time with the patient. CONTRAST: 10 [...] sterile drape. Prior to the procedure, the recovery operator and delinquent tax collector assistant performed hand hygiene and wore hat, mask, sterile gown, and sterile gloves during the entire procedure. PROCEDURE: ?? Using real-time sonographic guidance, a 22 gauge needle was inserted into the collecting system, and an antegrade pyelogram was performed. An AccuStick set was then placed, and a 10 British nephrostomy tube was placed in the renal pelvis. A post placement nephrostogram was performed. The catheter was sutured to the skin and placed to gravity bag drainage. FINDINGS: Ultrasound imaging demonstrates [id number] hydronephrosis. Post nephrostomy tube placement imaging demonstrates [...] observer. The physician spent 15 minutes of [id number]-zz-ehhc sedation time with the patient. CONTRAST: 10 [...] sterile drape. Prior to the procedure, the recovery operator and delinquent tax collector assistant performed hand hygiene and wore hat, mask, sterile gown, and sterile gloves during the entire procedure. PROCEDURE: Using real-time sonographic guidance, a 22 gauge needle was inserted into the collecting system, and an antegrade pyelogram was performed. An AccuStick set was then placed, and a 10 British nephrostomy tube was placed in the renal pelvis. A post placement nephrostogram was performed. The catheter was sutured to the skin and placed to gravity bag drainage. FINDINGS: Ultrasound imaging demonstrates [id number]-[id number]-[id number] hydronephrosis. Post nephrostomy tube placement imaging demonstrates good positioning of the tube within the renal pelvis. IMPRESSION: 1. Successful 10 British left nephrostomy tube placement. PLAN: Nephrostomy tube to gravity drain. SAVANNAH GERMAN MD Savannah German MD IMG IR ORDERABLES Final Resul t * HIV-1 Antibody (External Result) (07/18/2022 12:00 PM [employer] MACHINE OPERATOR) HIV 1&2 Antibody (External) Nonreactive Nonreactive [facility] 07/18/2022 12:0 0 PM [employer] OPERATOR Selma Coppola APRN [facility] - HIM EXTERNAL RESU LT Final Result [facility] * CHLAMYDIA TRACHOMATIS PCR (02/22/2018 1:40 PM CDT) Specimen Description Urine 02/22/2018 1:42 PM CDT [facility] Chlamydia Trachomatis PCR Negative NEG^Negat emmanuel 02/23/2018 12:19 PM CDT [facility] Comment: Negative for C. trachomatis rRNA by core maker helper mediated amplification. A negative result by core maker helper mediated amplification does not preclude the presence of C. trachomatis infection because results are dependent on proper and adequate collection, absence of inhibitors, and sufficient rRNA to be detected. Urine specimen (specimen) 02/22/2018 1:40 PM CDT 02/22/2018 1:41 PM CDT Deedee Castaneda PA-C LAB - MICRO GENERAL ORDERABLE S Final Result [facility] [address] [place] [address] * Hepatitis C antibody (10/28/2015 9:20 AM [employer] MACHINE OPERATOR) Hepatitis C Antibody Nonreactive Assay performance characteristics have not been established for newborns, infants, and children NR [facility] Blood specimen (specimen) 10/28/2015 9:20 AM [employer] MACHINE OPERATOR 10/28/2015 9:21 AM [employer] MACHINE OPERATOR Deedee Castaneda PA-C LAB - BLOOD ORDERABLES Final Result Performing Organization Address City/[facility]/ZIP Co de Phone Number [facility] [address] from Last 3 Months or Most Recently Relevant to Health Maintenance Insurance [employer] COMMERCIAL [facility] COMMERCIAL [facility] COMMERCIAL Advance Directives For more information, please contact: [phone] * Full Code (Latest Code Status on File) Date Activated Date Inactivated Comments 07/18/2024 12:14 PM Question Answer Comments Code status determined by: Discussion with mercedeze nt/ legal decision maker * Full Code Date Activated Date Inactivated Comments 07/14/2024 9:31 PM 07/18/2024 12:14 PM All basic a nd advanced life-sustaining interventions are performed as appropriate Question Answer Comments Code status determined by: Discussion with maira nt/ legal decision maker * Full Code Date Activated Date Inactivated Comments 01/29/2023 10:06 AM 01/31/2023 5:37 PM All basic a nd advanced life-sustaining interventions are performed as appropriate Question Answer Comments Code status determined by: Discussion with maira nt/ legal decision maker Care Teams Hand Candy Molder Relationship Specialty Start Date End Date Deedee Castaneda PA-C PCP - General Family Practice 04/26/13 Ayleen Naik MD [address] [facility] [address] [place] [address] Hospitalist Endocrinology, Diabetes, and Metabolism 07/28/22
== END 2024-07-14 20:27 | disposition home or self-care (01) ==
LOC: AMB 07-20 19:06
PROVIDERS: Visit Provider Family Medicine
DX: O99.891 Other specified diseases and conditions complicating pregnancy (principal); N13.9 Obstructive and reflux uropathy, unspecified; A41.9 Sepsis, unspecified organism
CPT/HCPCS: A0425; A0429